=== PATIENT | female | born 1950 | race Caucasian/White ===

== ENCOUNTER 2021-11-17 14:45 | Outpatient (CLI) | payer MEDICARE, SELFPAY ==
[2021-11-17 10:58] LABS: Albumin* 4.3 g/dL (3.3-5.0); Chloride* 105 mmol/L (96-114)
[2021-11-17 10:59] LABS: Potassium* 4.6 mmol/L (3.6-5.1)
[2021-11-17 11:01] LABS: Aspartate Amino Transferase* 29 U/L (12-35); Bilirubin Total* 0.5 mg/dL (0.1-1.5); Blood Urea Nitrogen* 23 mg/dL (7-30); Carbon Dioxide* 30 mmol/L (20-32); Cholesterol* 208 mg/dL (90-199); Creatinine* 0.7 mg/dL (0.5-1.5); Estimated Glomerular Filt Rate 94 ml/min; Glucose* 104 mg/dL (60-115)
[2021-11-17 11:02] LABS: Alanine Aminotransferase* 22 U/L (4-35); Alkaline Phosphatase* 75 U/L (40-150); Calcium* 9.3 mg/dL (8.4-10.6); HDL Cholesterol* 76 mg/dL (>=50); LDL Cholesterol Calculated 101 mg/dL (<100); Triglycerides* 154 mg/dL (40-149)
[2021-11-17 11:15] LABS: Vitamin D 25 Hydroxy* 31 ng/mL (30-80)
[2021-11-17 11:25] LABS: Sodium* 140 mmol/L (135-149)
[2021-11-17 11:42] LABS: Vitamin B12* 420 pg/mL (243-894)
== END 2021-11-17 14:46 | disposition home or self-care (01) ==
PROVIDERS: PCP Family Medicine; Visit Provider Family Medicine
DX: E53.8 Deficiency of other specified B group vitamins (principal); E55.9 Vitamin D deficiency, unspecified; R53.83 Other fatigue; E78.5 Hyperlipidemia, unspecified
CPT/HCPCS: 80053; 80061; 82306; 82607

== ENCOUNTER 2021-12-01 14:23 | Emergency (ER) | payer MEDICARE, SELFPAY ==
[2021-12-01 14:55] VITALS: BP 124/79; PULSE 70; RESP 18; TEMP 36.3; O2SAT 96; BMI 27.0
--- NOTE | 2021-12-01 17:53 | ED.GENADULT ---
HPI - General Adult General Chief complaint: Abdominal Pain Stated complaint: Abdominal pain Time Seen by Provider: 12/01/21 17:43 Source: patient Mode of arrival: ambulatory Limitations: no limitations History of Present Illness HPI narrative: Patient is a 71-year-old female coming in today complaining of abdominal pain and diarrhea. Discomfort is located in the epigastric area just to the left, has been present for a week. The pain comes and goes. It is made worse with consumption of carbonated beverages. She also states she has been having 1 to multiple bowel movements per day that are loose or as she describes it airy. she denies feeling dizzy or lightheaded. She denies any recent travel, sick contacts or antibiotic use. She denies fevers, nausea or vomiting. She has normal appetite. Her discomfort when it is present does not radiate. It is not present right now. She denies any blood in her stool. No difficulty with urination. She denies any increased urgency frequency or dysuria. Patient states that she does take NSAIDs for joint pain. Related Data Home Medications Medication Instructions Recorded Confirmed magnesium oxide 400 mg PO QDAY 08/26/21 12/01/21 naproxen sodium 220 mg tablet 220 mg PO PRN 08/26/21 12/01/21 vitamin B complex 1 tab PO QDAY 11/20/21 12/01/21 Previous Rx's Medication Instructions Recorded cholecalciferol (vitamin D3) 50 50 mcg PO QDAY #100 caps 11/20/21 mcg (2,000 unit) capsule cyanocobalamin (vitamin B-12) 1,000 mcg PO QDAY #100 caps 11/20/21 1,000 mcg capsule fluticasone propionate 50 1 spray intranasal DAILY PRN 11/20/21 mcg/actuation nasal allergy symptoms #16 grams spray,suspension rosuvastatin 5 mg tablet 5 mg PO DAILY #90 tabs 11/20/21 Allergies Allergy/AdvReac Type Severity Reaction Status Date / Time tolmetin Allergy Intermediate Hives Verified 12/01/21 13:42 aspirin AdvReac Intermediate Abdominal Verified 12/01/21 13:42 Pain Review of Systems Status of ROS: Reports: 10 or more systems reviewed and unremarkable except as noted in History and below [facility] Medical History Dyslipidemia History of depression History of fibromyalgia History of rheumatoid arthritis History of supraventricular tachycardia Low vitamin B12 level Mild sleep apnea (07/2018) 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 Tinnitus Ventricular premature beats (2018) Vitamin D deficiency Surgical History H/O eye surgery (2019) History of arthroscopy of right knee (1977) History of arthroscopy of right knee (1983) History of right cataract extraction (06/2020) History of vaginal delivery Normal colonoscopy (2013) Family History Brother Coronary artery disease, Onset Age: 45 Cardiac arrhythmia Lupus erythematosus Mother Alzheimer's disease, Onset Age: 75 Stroke, Onset Age: 80 Father Basal cell carcinoma CHF (congestive heart failure), Onset Age: 86 Cardiac arrhythmia, Onset Age: 65 Maternal Grandmother Breast cancer, Onset Age: 40 Other Parkinson's disease Social History Narrative: health care directive on file- health care directive completed on 06/05/19, reviewed and sent for scanning to medical record on 11/21/20 exercises 3-4 times per week- 50N silver sneakers, gardening , 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 Alert and oriented. Answers questions appropriately. Mood and affect are appropriate. Thoughts are goal oriented and rational. No tangential or magical thinking noted. Patient speaks in full sentences without needing to catch her breath. HEENT: Normocephalic atraumatic. Pupils are equally round reactive to light. Extraocular muscles are intact. Conjunctivae are moist without any icterus noted. Moist mucous membranes. Posterior pharynx is normal. Neck is soft without any lymphadenopathy or thyromegaly. No masses are appreciated. Cardiovascular: Heart is regular rate and rhythm S1 and S2 are present without any murmurs. Lungs: Clear to auscultation bilaterally no wheezes rhonchi or rales are appreciated. Patient takes deep breaths without any discomfort. Abdomen: Soft and nontender nondistended with normal bowel sounds. No guarding or rebound. No masses or organomegaly appreciated. Extremities: Bilateral lower extremities are without edema. Skin: Well perfused without any obvious rashes. Const: Vital Signs, click to edit/add: Vital Signs - 24 hr 12/01/21 14:55 Temperature 97.4 F L Pulse Rate [Right Pulse Oximeter] 70 Respiratory Rate 18 Blood Pressure [Ri ght Upper Arm] 124/79 Pulse Oximetry 96 Oxygen Delivery Me thod Room Air Course Vital Signs Vital signs: Initial Vital Signs Temperature 97.4 F L 12/01/21 14:55 Temperature Source Temporal Artery Scan 12/01/21 14:55 Pulse Rate 70 12/01/21 14:55 Respiratory Rate 18 12/01/21 14:55 Blood Pressure 124/79 12/01/21 14:55 Blood Pressure Mean 94 12/01/21 14:55 Blood Pressure Position Sitting 12/01/21 14:55 Pulse Oximetry 96 12/01/21 14:55 Oxygen Delivery Method 12/01/21 14:55 Vital Signs Temperature 97.4 F L 12/01/21 14:55 Pulse Rate 70 12/01/21 14:55 Respiratory Rate 18 12/01/21 14:55 Blood Pressure 124/79 12/01/21 14:55 Pulse Oximetry 96 12/01/21 14:55 Oxygen Delivery Method 12/01/21 14:55 Temperature 97.4 F L 12/01/21 14:55 Pulse Rate 70 12/01/21 14:55 Respiratory Rate 18 12/01/21 14:55 Blood Pressure 124/79 12/01/21 14:55 Pulse Oximetry 96 12/01/21 14:55 Oxygen Delivery Method 12/01/21 14:55 Medical Decision Making MDM Narrative Medical decision making narrative: 71-year-old female with abdominal discomfort and loose stools. We discuss that her symptoms are likely caused by gastroenteritis and gastritis. Given the lack of other symptoms I did discuss with her that I do not feels necessary to do any imaging or lab work today. I do recommend Imodium and omeprazole. Discussed returning to the ER if she develops fever, vomiting, worsening pain. Discussed following up with primary care provider in a week or so if symptoms are not getting better. Patient was agreeable with everything we discussed and had no other questions. Medical Records Medical records reviewed: Yes I reviewed the patient's medical records Discharge Plan Discharge Clinical Impression: Gastritis, Gastroenteritis Patient Disposition: Home, Self-Care Condition: Stable Additional Instructions: Start daily omeprazole 20 mg. This can be purchased [id number]. This will help decrease the amount of acid in your stomach which is likely contributing to your abdominal discomfort. It may take a week for you to feel relief. Also start Imodium as directed to decrease frequency of loose stools. Return to the ER if you develop fever, vomiting or worsening pain. Follow-up with your primary care provider in 1 week if you are not improving. Prescriptions: No Action vitamin B complex Tablet 1 tab PO QDAY rosuvastatin 5 mg tablet 5 mg PO DAILY Qty: 90 4RF fluticasone propionate 50 mcg/actuation spray,suspension 1 spray intranasal DAILY PRN (Reason: allergy symptoms) Qty: 16 5RF cholecalciferol (vitamin D3) 50 mcg (2,000 unit) capsule 50 mcg PO QDAY Qty: 100 4RF cyanocobalamin (vitamin B-12) 1,000 mcg capsule 1,000 mcg PO QDAY Qty: 100 4RF naproxen sodium 220 mg tablet 220 mg PO PRN magnesium oxide 400 mg magnesium tablet 400 mg PO QDAY Follow Up/Referrals: Kathie Flores MD [Primary Care Provider] - Stand Alone Forms: [employer] Info Instructions
--- OUTSIDE RECORDS SUMMARY | 2021-12-01 18:02 | XMS_ITS | Encounter Summary ---
:1950 Author Organization [facility] Address [address] [place] [address] Care Team Providers Name Role Phone Elsewhere, Pcp Primary Care Provider Unavailable Reason for Visit Reason Comments Triage Encounter Details Date Type Department Care Team Description 03/12/2021 Clinical Communication Division of Marsha Padilla Rheumatology in S, M.D. [place], [place] [address] [facility] [address] [place] [id number] [phone] Social History Tobacco Use Types Packs/Day Years Used Date Smoking Tobacco: Never Assessed Alcohol Habits Answer Date Recorded How often do you have a drink containing alcohol? 2-3 times a week 08/28/2020 How many drinks containing alcohol do you have on a 1 or 2 08/28/2020 typical day when you are drinking? How often do you have six or more drinks on one Never 08/28/2020 occasion? Comment: Not asked Social Isolation Answer Date Recorded In a typical week, how many times do you More than three pedro es a week 08/28/2020 talk on the phone with family, friends, or neighbors? How often do you get together with friends More than three t imes a week 08/28/2020 or relatives? How often do you attend mormon or Never 2020 baptist services? Do you belong to any clubs or Yes 08/28/2020 organizations such as mormon groups, unions, fraternal or athletic groups, or school groups? How often do you attend meetings of the More than 4 times pe r year 08/28/2020 clubs or organizations you belong to? Are you now , , , 08/28/2020 , never or living with a partner? Physical Activity Answer Date Recorded On average, how many days per week do you engage in moderate to 3 days 08/28/2020 strenuous exercise (like walking fast, running, jogging, dancing, swimming, biking, or other activities that cause a light or heavy sweat)? On average, how many minutes do you engage in exercise at th is 50 min 08/28/2020 level? Stress Answer Date Recorded Do you feel stress - tense, restless, nervous, or Only a lit tle 08/28/2020 anxious, or unable to sleep at night because your mind is troubled all the time - these days? Financial Resource Strain Answer Date Recorded How hard is it for you to pay for the very basics like Not h adamaris at all 08/28/2020 food, housing, medical care, and heating? Food Insecurity Answer Date Recorded Within the past 12 months, you worried that your food would Never true 08/28/2020 run out before you got money to buy more. Within the past 12 months, the food you bought just didn't N ever true 08/28/2020 last and you didn't have money to get more. Transportation Needs Answer Date Recorded In the past 12 months, has lack of transportation kept you f rom No 08/28/2020 medical appointments or from getting medications? In the past 12 months, has lack of transportation kept you f rom No 08/28/2020 meetings, work, or getting things needed for daily living? Housing Stability Answer Date Recorded In the last 12 months, was there a time when you were not ab le No 08/28/2020 to pay the mortgage or rent on time? In the last 12 months, how many places have you lived? 1 08/28/2020 In the last 12 months, was there a time when you did not hav e a No 08/28/[address] sleep or slept in a fci (including now)? Education Answer Date Recorded What is the highest level of school Master's degree (e.g., M Joni, MS, 08/28/2020 you have completed or the highest Sung, MEd, WRAPPER STEMMER OPERATOR, MARY) degree you have received? Sex Assigned at Date Recorded Not on file documented as of this encounter Miscellaneous Notes Telephone Encounter - Marsha Padilla M.D. - 03/12/2021 11:22 AM SUPERVISING LAW ENFORCEMENT ANALYST Rheumatology Appointment Request Form Triage Appointment request: DENIED Explanation: Indication (+SURESH) not appropriate for Rheumatology: suggest referral to another Department or Division: [facility] Thank you. Marsha Padilla M.D. RVISING LAW ENFORCEMENT ANALYST Telephone Encounter - Giuliano Luz - 03/12/2021 11:02 AM CST New Patient Referral for: Arthritis Personal History [Z87.39] OSM: Chart and CE Scheduling Priority: Send Response to: RST U SCHEDULING Rheumatology ARF Responses Name: Jeanette Rios [facility] Number: [id number] Birthdate: 1950 Email: [email or web address] Rheumatology Model of Care I have read the Medical Emergency directions as noted above: Yes I have read the Rheumatology Model of Care as noted above and agree to the process outlined: Yes Demographics Legal first name: Jeanette Hi initial: Alvina Last name: Gabriel date (mm/dd/yyyy): 1950 Who is filling out this form: Patient Have you been diagnosed with a rheumatic disease: Yes If yes, please list: Rheumatoid Arthritis What are your goals for your visit to [facility]: To work with a specialist in rheumatology to determine which autoimmune disease I may have and develop and appropriate treatment plan so I can return to doing the activities I enjoy. Who is referring you to [facility] (provide name and address): Dr. Althea Flores [facility] and [address] [address] Is this a Vat Tender: Yes Is this your local provider that you would like us to communicate with: Yes What are your goals for your visit to [facility]: To work with a specialist in rheumatology to determine which autoimmune disease I may have and develop and appropriate treatment plan so I can return to doing the activities I enjoy. Primary Symptom/Concern Primary Symptom/Concern: Describe your main medical symptoms and concerns: swollen knees with pain and overall muscle and body aches that are causing sleep disturbance and exteme fatigue. Primary Symptom/Concern: Has this symptom been present for less than 6 months or more than 6 months:More than 6 months Primary Symptom/Concern: Have you previously been evaluated for this symptom: No Are there additional symptoms/concerns: Yes Secondary Symptom/Concern Secondary Symptom/Concern: Describe your main medical symptoms and concerns: Fatigue is increasing the frequency of my heart palpitations Secondary Symptom/Concern: Has this symptom been present for less than 6 months or more than 6 months: More than 6 months Secondary Symptom/Concern: Have you previously been evaluated for this symptom: Yes Secondary Symptom/Concern: What was the outcome of this evaluation for this symptom: I went through a cardiac work-up in the November-December 2017. Additional Symptoms/Concerns Are you currently taking any form of oral glucocorticoid (e.g., prednisone): No Are you currently taking any form of opioid or narcotic pain medication: No Please list any current medications that you take for rheumatology-related conditions: Naproxen Sodium 220mg tabs q 12 hours Please list any medications you have previously taken for rheumatology-related conditions: Prednisone Injections Oral prednisone Do you or your local provider feel you should see any specialists while at [facility]: Yes Please list any specialists that you or your local provider feel you should see while you are at [facility] and explain: Rhematologist How would you rate your overall health: Good Have you had a biopsy of tissue or organ related to your rheumatology problems: No Do you have a history of iodine contrast reaction: No Do you have a history of Gadolinium contrast reaction: No Are you on dialysis: No Have you had a kidney transplant: No Have you had low urine output or no urine output in the past 48 hours: No Do you have any implanted medical devices or pumps: No Are you diabetic: No Are you currently taking any dietary or herbal supplements: Yes Dietary supplements may contain ingredients that can affect how your body functions, just as nonprescription and prescription medications do. Would you like a physician in Integrative Medicine and Health to review your supplements: Yes Please list the frequency and dosage of any dietary and herbal supplements: Multivitamin Daily B-complex Daily Vit D3 5000 IU Daily Appointment Information Please list below any specific dates we should not use for scheduling within the next 12 weeks: I amNOT available for certain dates List dates NOT available: March 24April 17April 24 What is the best phone number to reach you at: [phone] RVISING LAW ENFORCEMENT ANALYST documented in this encounter Plan of Treatment Not on filedocumented as of this encounter Visit Diagnoses Not on filedocumented in this encounter Care Teams Cartridge Assembling Machine Adjuster Relationship Specialty Start Date End Date Elsewhere, Pcp PCP - General Family Medicine 08/25/20 documented as of this encounter
--- OUTSIDE RECORDS SUMMARY | 2021-12-01 18:02 | XMS_ITS | Encounter Summary ---
:1950 Author Organization [facility] Address [address] [place] [address] Care Team Providers Name Role Phone Elsewhere, Pcp Primary Care Provider Unavailable Reason for Referral Outpatient (Routine) - Closed Specialty Diagnoses / Procedures Referred By Contact Refer red To Contact Vascular Medicine Diagnoses Stenosis Carotid Artery Bilateral Hugh Nguyen [place] [facility] M.D. [address] [place] [address] Referral ID Status Reason Start Date Expiration Date Visits Requ ested Visits Authorized [id number] Closed 08/28/2020 08/28/2021 1 1 Outpatient (Routine) - Closed Specialty Diagnoses / Procedures Referred By Contact Refer red To Contact Diagnoses Stenosis Carotid Artery Bilateral Hugh Nguyen M.D. [place] [facility] Procedures US Carotid Bilateral [address] [place] [address] Referral ID Status Reason Start Date Expiration Date Visits Requ ested Visits Authorized [id number] Closed 08/28/2020 08/28/2021 1 1 Reason for Visit Outpatient (Routine) - Closed Specialty Diagnoses / Procedures Referred By Contact Refer red To Contact Vascular Medicine Diagnoses Stenosis Carotid Artery Bilateral Imtiaz Lai [place] [facility] M.D. [address] [place] [address] Referral ID Status Reason Start Date Expiration Date Visits Requ ested Visits Authorized [id number] Closed 08/22/2020 08/22/2021 1 1 Encounter Details Date Type Department Care Team Description 08/28/2020 Comprehensive Visit Department of Maritza Nguyen s Carotid Artery Bilateral (Primary Dx); Vascular Medicine in [place] Mar[facility] Hyperlipidemia; [place], [place] 200 [facility] Smoking Tobacco Use Personal History; [address] [place], [place] [phone] Social History Tobacco Use Types Packs/Day Years [...] or relatives? How often do you attend scientologist or Never 2020 temple services? Do you belong to any clubs or Yes 08/28/2020 organizations such as scientologist groups, unions, fraternal or athletic groups, or [...] place to sleep or slept in a half-way (including now)? Education Answer Date Recorded What is the highest level of school Master's degree (e.g., M Joni, MS, 08/28/2020 you have completed or the highest Sung, MEd, PLASTER WHITTLER, MARY) degree you have received? Sex Assigned at Date Recorded Not on file documented as of this encounter Last Filed Vital Signs Vital Sign Reading Time Taken Comments Blood Pressure 128/82 08/28/2020 12:48 PM CDT Pulse 65 08/28/2020 12:48 PM CDT Temperature - - Respiratory Rate - - Oxygen Saturation - - Inhaled Oxygen Concentration - - Weight 93.2 kg (205 lb 7.5 oz) 08/28/2020 12:47 PM CDT Height 181.6 cm (5' 11.5) 08/28/2020 12:47 PM CDT Body Mass Index 28.26 08/28/2020 12:47 PM CDT documented in this encounter Consult Notes Hugh Nguyen M.D. - 08/28/2020 1:00 PM CDT REFERRAL SOURCE Imtiaz Carrera M.D. [address] [place] [id number] SUBJECTIVE CHIEF COMPLAINT / REASON FOR VISIT HISTORY OF PRESENT ILLNESS Ms. Rios is a 70 y.o. female that I am seeing today for an opinion and recommendations on carotid arterial stenosis. The patient has been referred by Imtiaz Carrera M.D. 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 She has her Masters Degree in nursing. Mrs. Rios had a recent evaluation for hearing her heartbeat in her ears and ringing in her ears whenshe was lying in bed at night and everything was quiet. When I questioned her about the tinnitus, she does have a history of loud noise exposure in the past. She had a carotid arterial ultrasound exam and an MRI/angio without contrast, both on August 18 of this year, and the reports are as noted below. She was noted to have carotid artery plaque and I am asked to comment on this. She does not have a history of TIA or stroke. She is not diabetic and does not have a history of hypertension. Past Medical History: Her past medical history includes hyperlipidemia, environmental allergies, a left knee arthroscopic meniscal surgery, right eye cataract surgery, and another right eye surgery forfloaters involving her retina. Social History: She quit smoking in 1980. She drinks alcohol socially but not daily. Family History: Mother age 82 from a stroke, father age 89 with Parkinson's and from pneumonia, sister age 66, brother age 62 with lupus, and a brother age 59. To the patient's knowledge, these family members did not have a history of carotid artery disease. The following portions of the patient's history were reviewed and updated as appropriate: allergies,current medications, family history, medical history, social history, surgical history, psychiatric history, substance abuse history, problem list, labs, diagnostics tests. I reviewed the pertinent clinical notes in the electronic health record. REVIEW OF SYSTEMS Constitutional: Positive for fatigue. Eyes: Positive for visual problems. ENT: Positive for difficulty hearing. Cardiovascular: Positive for rapid or fluttering heart beat. Neurological: Positive for light-headedness. Psychiatric/Behavioral: Positive for feeling down, depressed, or hopeless over past two weeks. The following systems were negative: Skin, Respiratory, GI, , Hematologic, Musculoskeletal A complete review of systems was performed with pertinent information listed in the HPI, all others negative. OBJECTIVE VITALS BP 128/82 (BP Location: Right arm, Patient Position: Sitting) Pulse 65 Ht 181.6 cm Wt 93.2 kg BMI 28.26 kg/m?? PHYSICAL EXAMINATION Body mass index is 28.26 kg/m??. Physical Exam Neurological: Awake, alert, and appropriately conversant. Psychiatry: In no distress and she did not appear to be depressed. Vessels: Radial pulses were 4+ bilaterally, ulnars 3+ on the right and 2+ on the left, brachials 4+ bilaterally, carotids 4+ bilaterally without bruits, femorals 3+ bilaterally, popliteals 2+ bilaterally, dorsalis pedis 3+ on the right and 4+ on the left, and posterior tibials 4+ bilaterally. Eyes: The pupils were equal, round, and reactive to light and accommodation. Extraocular movements were intact. Optic discs were not visualized. ENT: Tympanic membranes were obscured bilaterally. Oropharynx was not examined as the patient was wearing a mask due to the COVID-19 pandemic. Respiratory: Lungs were clear to auscultation. Cardiovascular: Cardiac exam revealed a regular rate with a normal S1 and S2. Abdomen: Active bowel sounds. No bruits. : Not examined. Musculoskeletal: No spinous process tenderness on back examination. She did not have limb atrophy. DIAGNOSTIC REVIEW All relevant labs and diagnostic studies below were reviewed. Within Document Viewer there is a report for a carotid artery ultrasound exam dated August 18 of this year and those images are in QREADS. The report indicated mild atherosclerotic plaque evident without a hemodynamically significant stenosis involving the common carotid, internal carotid, or external carotid arteries on either side. The final impression was a less than 50 percent bilateral internal carotid arterial stenosis. The report also indicated a decreased peak systolic velocity bilaterally, particularly on the right, suggesting systemic hypotension. Within Document Viewer there is an MRI/angio without contrast report dated August 18 of this year and those images are in QREADS. The report indicates that the visualized internal carotid, middle cerebral, anterior cerebral, vertebral, basilar, and posterior cerebral arteries are all widely patent. There are no aneurysms or AV malformations noted. Overall the study was thought to be an unremarkable MRA of the head without infarction. ASSESSMENT / PLAN ASSESSMENT #1 Stenosis Carotid Artery Bilateral Mrs. Rios had recent symptoms consisting of hearing her heartbeat in her ears and bilateral tinnitus, both of which I do not think were related to a non- hemodynamically significant carotid arterial stenosis on either side. In my discussion with her, she is concerned about the report on the carotid artery ultrasound indicating the decreased peak systolic velocity bilaterally suggesting systemic hypotension. She notes that her blood pressures in the afternoon may be in the 118 systolic range, and thatcertainly does not sound like systemic hypotension. Given her concerns, and the vagueness of that wording in her carotid artery ultrasound report, I think it would be reasonable to repeat the carotid artery ultrasound exam here, and she would like to do that. There is nothing on her carotid artery ultrasound report, nor in her MRI/angio report, that has me concerned about her cerebrovascular circulation, and she was reassured. We talked about when we would consider repair of a carotid arterial stenosis, and that is in the 70 to 99 percent stenosis range. #2 Hyperlipidemia This is a risk factor for atherosclerosis and carotid arterial stenosis and is currently on treatment. #3 Smoking Tobacco Use Personal History This is also a risk factor for atherosclerosis and carotid arterial stenosis and the patient stoppedsmoking decades ago. #4 Tinnitus Bilateral The discussion is as above. PLAN 1. Carotid arterial ultrasound examination. 2. I will see her in return after the above. Total time spent with patient: 60 minutes. Time spent in counseling and coordination of care: 35 minutes. Hugh Nguyen M.D. documented in this encounter Plan of Treatment Scheduled Referrals Name Type Priority Associated Diagnoses Order S [facility] Vascular Medicine Outpatient Referral Routine Stenosis Carotid Expected: office visit Artery Bilateral 08/28/2020 (clinic) (Approximate), Expires: 08/29/2023 documented as of this encounter Results US Carotid Bilateral (10/06/2020 2:18 PM CDT) Anatomical Region Laterality Modality Head and Neck, Ultrasound RST LOS, Ultrasound ARZ LOS, Bilat [place] Ultrasound Neuroradiology FLA LOS Specimen (Source) Anatomical Collection Method Collection Time Re ceived Time Location / / Volume Laterality 10/06/2020 2:27 PM CDT Impressions 10/06/2020 2:29 PM CDT Negative carotid ultrasound. Both vertebral arteries are patent with antegrade flow. Narrative 10/06/2020 2:29 PM CDT EXAM: US CAROTID BILATERAL Exam performed with color and spectral D oppler analysis. COMPARISON: ??Outside ultrasound dated 0 08/18/2020 FINDINGS: VELOCITIES (cm/sec) Right CCA *psv: ??46 cm/s Right ICA psv: 57 cm/s Right ICA edv: 25 cm/s Right ECA psv: 36 cm/s Right ICA/CCA: 1.2 Left CCA *psv: 50 cm/s Left ICA psv: 57 cm/s Left ICA edv: ??24 cm/s Left ECA psv: ??37 cm/s Left ICA/CCA: 1.2 ?? *mid/distal (non-diseased) Measurement of a carotid stenosis, if pr esent, is based on velocity parameters that compare the residual internal carot id luminal diameter with that of the normal distal ICA in accordance with [place] Symptomatic Carotid Endarterectomy Trial (NASCET). Procedure Note Joshua Rutherford M.D. - 10/06/2020Formatti ng of this note might be different from the original. EXAM: US CAROTID BILATERAL Exam performed with color and spectral D oppler analysis. COMPARISON: Outside ultrasound dated FINDINGS: VELOCITIES (cm/sec) Right CCA *psv: 46 cm/s Right ICA psv: 57 cm/s Right ICA edv: 25 cm/s Right ECA psv: 36 cm/s Right ICA/CCA: 1.2 Left CCA *psv: 50 cm/s Left ICA psv: 57 cm/s Left ICA edv: 24 cm/s Left ECA psv: 37 cm/s Left ICA/CCA: 1.2 *mid/distal (non-diseased) Measurement of a carotid stenosis, if pr esent, is based on velocity parameters that compare the residual internal carot id luminal diameter with that of the normal distal ICA in accordance with [place] Symptomatic Carotid Endarterectomy Trial (NASCET). IMPRESSION: Negative carotid ultrasound. Both verteb ral arteries are patent with antegrade flow. Hugh Nguyen M.D. [facility] US PROCEDURES documented in this encounter Visit Diagnoses Diagnosis Stenosis Carotid Artery Bilateral - Prim garrett Hyperlipidemia Smoking Tobacco Use Personal History Tinnitus Bilateral Stenosis Carotid Artery Bilateral documented in this encounter Care Teams Rn Mds Relationship Specialty Start Date End Date Elsewhere, Pcp PCP - General Family Medicine 08/25/20 documented as of this encounter
--- OUTSIDE RECORDS SUMMARY | 2021-12-01 18:02 | XMS_ITS | Encounter Summary ---
:1950 Author Organization [facility] Address [address] [place] [address] Care Team Providers Name Role Phone Elsewhere, Pcp Primary Care Provider Unavailable Reason for Referral Outpatient (Routine) - Closed Specialty Diagnoses / Procedures Referred By Contact Refer red To Contact Diagnoses Stenosis Carotid Artery Bilateral Hugh Nguyen M.D. [facility] Procedures US Carotid Bilateral [address] [place] [phone] Referral ID Status Reason Start Date Expiration Date Visits Requ ested Visits Authorized [id number] Closed 08/28/2020 08/28/2021 1 1 Reason for Visit Outpatient (Routine) - Closed Specialty Diagnoses / Procedures Referred By Contact Refer red To Contact Diagnoses Stenosis Carotid Artery Bilateral Hugh Nguyen M.D. [facility] Procedures US Carotid Bilateral [address] [place] [address] Referral ID Status Reason Start Date Expiration Date Visits Requ ested Visits Authorized [id number] Closed 08/28/2020 08/28/2021 1 1 Encounter Details Date Type Department Care Team Description 10/06/2020 Hospital Encounter Department of Patrick, Chap[place]rita Carotid Radiology, Angelica Malcolm M.D. Artery Bilateral Building, in [address] [place], [place] [address] [facility] [address] [place], [place] [phone] (Work) [phone] Social History Tobacco Use Types Packs/Day Years [...] or relatives? How often do you attend hindu or Never 2020 scientology services? Do you belong to any clubs or Yes 08/28/2020 organizations such as hindu groups, unions, fraternal or athletic groups, or [...] place to sleep or slept in a residential (including now)? Education Answer Date Recorded What is the highest level of school Master's degree (e.g., M Joni, MS, 08/28/2020 you have completed or the highest Sung, MEd, CATERING AND EVENTS MANAGER, MARY) degree you have received? Sex Assigned at Date Recorded Not on file documented as of this encounter Medications at Time of Discharge Medication Sig Dispensed Refills Start Date End Date atorvastatin (LIPITOR) 10 mg Take 10 mg by mouth 0 07/21/2020 tablet at bedtime. B complex-vitamins (BALANCE Take 1 tablet by 0 B-50) tablet mouth daily. cetirizine (ZyrTEC) 5 mg Take 5 mg by mouth 0 tablet as needed for allergies. cholecalciferol (VITAMIN D3) Daily 0 020 50 mcg (2,000 Unit) tablet ergocalciferol (DRISDOL) Take 2,000 Units by 0 50,000 Unit capsule mouth. fluticasone propionate Daily 0 02/18/2014 (FLONASE) 50 mcg/actuation nasal spray multivitamin renal failure Take 1 tablet by 0 (DIALYVITE) 100-1 mg tablet mouth daily with dinner. naproxen sodium Twice A Day as 0 (ALEVE/ANAPROX) 220 mg needed tablet omega 0-kdw-aqa-fish oil Take by mouth. 0 1,000 mg (120 mg-180 mg) capsule documented as of this encounter Plan of Treatment Not on filedocumented as of this encounter Procedures Procedure Name Priority Date/Time Associated Comments Diagnosis US CAROTID RAD - Routine 10/06/2020 2:18 Stenosis Carotid Results for this BILATERAL (most inpatients PM CDT Artery Bilateral procedu re are in and all the results outpatients) section. documented in this encounter Results US Carotid Bilateral (10/06/2020 2:18 PM CDT) Anatomical Region Laterality Modality Head and Neck, Ultrasound RST LOS, Ultrasound ARZ LOS, Bilat eral Ultrasound Neuroradiology FLA LOS Specimen (Source) Anatomical [...] the normal distal ICA in accordance with [facility] [place] Symptomatic Carotid Endarterectomy Trial (NASCET). Procedure Note [...] the normal distal ICA in accordance with [place] Symptomatic Carotid Endarterectomy Trial (NASCET). IMPRESSION: Negative carotid ultrasound. Both verteb ral arteries are patent with antegrade flow. Hugh GORODN US PROCEDURES documented in this encounter Visit Diagnoses Diagnosis Stenosis Carotid Artery Bilateral documented in this encounter Care Teams Splitter Machine Relationship Specialty Start Date End Date Elsewhere, Pcp PCP - General Family Medicine 08/25/20 documented as of this encounter
--- OUTSIDE RECORDS SUMMARY | 2021-12-01 18:02 | XMS_ITS | Encounter Summary ---
:1950 Author Organization [facility] Address [address] [place] [address] Care Team Providers Name Role Phone Elsewhere, Pcp Primary Care Provider Unavailable Reason for Visit Outpatient (Routine) - Closed Specialty Diagnoses / Procedures Referred By Contact Refer red To Contact Vascular Medicine Diagnoses Stenosis Carotid Artery Bilateral Hugh Nguyen [place] [facility] Gonzalez [address] [place] [address] Referral ID Status Reason Start Date Expiration Date Visits Requ ested Visits Authorized [id number] Closed 08/28/2020 08/28/2021 1 1 Encounter Details Date Type Department Care Team Description 10/06/2020 Office Visit Department of Vascular Melissa Nguyeno sis Carotid Artery Medicine in [facility] Alec Maradiaga Bilateral [place] 200 [facility] [address] [place] [phone] Social History Tobacco Use Types Packs/Day Years [...] do you attend mormon or Never 2020 christian services? Do you belong to any clubs [...] place to sleep or slept in a longterm (including now)? Education Answer Date Recorded What is the highest level of school Master's degree (e.g., Alec Quinones MS, 08/28/2020 you have completed or the highest Sung, MEd, DEPUTY DIRECTOR OF NURSING, MARY) degree you have received? Sex Assigned at Date Recorded Not on file documented as of this encounter Progress Notes Hugh Nguyen M.D. - 10/06/2020 4:15 PM CDT SUBJECTIVE Ms. Rios is a 70 y.o. female who is returning today for review of her carotid artery ultrasound exam. OBJECTIVE VITALS There were no vitals taken for this visit. PHYSICAL EXAMINATION There is no height or weight on file to calculate BMI. DIAGNOSTIC REVIEW Her carotid arterial ultrasound exam from earlier today does not show significant carotid artery stenosis on either side and both vertebral arteries are patent with antegrade flow. ASSESSMENT / PLAN ASSESSMENT #1 Stenosis Carotid Artery Bilateral Although the patient does have a carotid arterial ultrasound report locally from July noting a less than 50 percent bilateral internal carotid arterial stenosis, our study does not show any significantstenosis on either side, and she was reassured. I do not see a need for any further carotid arterialstudies at this point. PLAN 1. Recommendations are as above. Total time spent with patient: 15 minutes. Time spent in counseling and coordination of care: 10 minutes. Hugh Nguyen M.D. documented in this encounter Plan of Treatment Not on filedocumented as of this encounter Visit Diagnoses Diagnosis Stenosis Carotid Artery Bilateral documented in this encounter Care Teams Contract Sheltered Workshop Supervisor Relationship Specialty Start Date End Date Elsewhere, Pcp PCP - General Family Medicine 08/25/20 documented as of this encounter
--- OUTSIDE RECORDS SUMMARY | 2021-12-01 18:02 | XMS_ITS | Clinical Summary ---
:1950 Author Organization [facility] [place] [address] Care Team Providers Name Role Phone Kathie Flores MD Primary Care Provider [phone] Allergies Active Allergy Reactions Severity Noted Date Comments Aspirin GI Upset 01/16/2020 abd pain Tolmetin Rash 06/14/2006 tolectin Medications Medication Sig Dispensed Refills Start Date End Date Status fluticasone (50 mcg per Inhale 1 Wheeler 1 Bottle 3 02/18/2014 Active actuation) nasal into both solution nostrils once (FLONASE)Indications: daily. Environmental allergies ergocalciferol (VITAMIN Take 1 capsule 12 capsule 3 02/19/2015 Active D) 50,000 unit by mouth once capsuleIndications: weekly. Vitamin D deficiency atorvastatin (LIPITOR) Take 1 tablet by 0 12/02/2017 Active 10 mg tablet mouth once daily. naproxen (NAPROSYN) 500 TAKE ONE TABLET 0 01/20/2018 Active mg tablet BY MOUTH TWICE A DAY WITH FOOD FOR 10 DAYS cyanocobalamin (VITAMIN Take 1,000 mcg 0 Active B-12) 1,000 mcg tablet by mouth once daily. Active Problems Problem Noted Date Burt's neuroma of right foot 10/31/2014 Unspecified vitamin D deficiency 02/05/2011 Tachycardia, unspecified 12/29/2009 Overview: Intermittant; trigger by caffeine Insomnia, unspecified 12/29/2009 Arthritis, rheumatic, acute or subacute 05/27/2009 Overview: Diagnosis in the but had a Negati ve RA. Symptoms controlled with hormones-- control pills Fibromyalgia 05/27/2009 Hyperlipemia 05/27/2009 Routine health maintenance 05/27/2009 Overview: Physical,pap,breast exam,cholesterol 240 , ldl 138,hdl, 69 Colon: 9.2003- normal BMD: 10.2006 normal density Resolved Problems Problem Noted Date Resolved Date Coronary atherosclerosis of unspecified type of vessel, 08/2812/29/2009 sitka or graft CVD (cardiovascular disease) 09/15/2009 12/29/2009 Adjustment disorder with mixed anxiety and depressed mood 02/05/2011 Adjustment disorder with depressed mood 02/05/2011 Encounters Date Type Specialty Care Team Description 10/14/2021 Telephone Brionna Hyde PsyD, Late Cancel Appointment LP 09/25/2021 Office Visit Brionna Hyde PsyD, Individual Therapy 09/25/2021 Travel from Last 3 Months Immunizations Name Administration Dates Next Due Hepatitis A (Adult) 12/01/2006, 05/12/2005 Influenza A (H1N1), Inactivated (Age 1202/27/2009 >=3 Years) Influenza Virus, Unspecified 01/20/2016 Influenza, IIV3 (Age >=3 years) 02/16/2013, 02/16/2012, 10/30, 12/29/2009 Influenza, IIV4 12/30/2014 Td (Age >=7 Years) 04/09/2003 Tdap 02/16/2012 Zoster (Zostavax-ZVL, live) 03/14/2015 Family History Medical History Relation Name Comments Other Brother 1 Andrew chest pain; no A SCVD Cancer-colon Brother 2 Yuri polyps Asthma Daughter Pj Good Health Daughter Pj Heart Disease Father arrythmia Hypertension Father Other Father Parkinson's, sta ble brain tumor Stroke Maternal Grandfather Cancer-breast Maternal Grandmother Other Maternal Grandmother dementia Heart Disease Mother afib Hyperlipidemia Mother Other Mother alzheimer's Thyroid Disease Mother Stroke Paternal Grandfather Heart Disease Paternal Grandmother Other Sister fibromyalgia Good Health Son Bear Relation Name Status Comments Brother 1 Andrew Alive Brother 2 Yuri Alive Daughter Pj Alive Father Alive Maternal Grandfather (Age 62) stroke Maternal Grandmother (Age 70's) dementi a Mother complication of stroke Paternal Grandfather (Age 78) strokes Paternal Grandmother (Age 93) CHF Sister Alive Son Bear Alive Social History Tobacco Use Types Packs/Day Years Used Date Former Smoker Quit: 02/28/18 83 Smokeless Tobacco: Never Used Tobacco Cessation: Counseling Given: Yes Alcohol Use Standard Drinks/Week Comments Yes 0 (1 standard drink = 0.6 oz pure alcoho l) 0-1 a week Alcohol Habits Answer Date Recorded How often do you have a drink containing alcohol? Not asked How many drinks containing alcohol do you have on a typical Not asked day when you are drinking? How often do you have six or more drinks on one occasion? No t asked Comment: 0-1 a week 12/29/2009 Sex Assigned at Date Recorded Not on file Obstetrics History Para Term AB IAB SAB Ectopic Multiple Living Live Births 2 2 2 2 Date Outcome GA Total Labor/2nd/3rd Weight Sex Delivery Anes PTL Marga A 1 A5 Name Clin Labor Term Term Comments Bedrest for the second Last Filed Vital Signs Vital Sign Reading Time Taken Comments Blood Pressure 136/80 01/17/2020 10:25 AM BAKESHOP CLEANER Pulse 58 01/17/2020 10:25 AM BAKESHOP CLEANER Temperature 36.3 ??C (97.4 ??F) 01/17/2020 8:33 AM BAKESHOP CLEANER Respiratory Rate 18 01/17/2020 10:25 AM BAKESHOP CLEANER Oxygen Saturation 99% 01/17/2020 10:25 AM BAKESHOP CLEANER Inhaled Oxygen Concentration - - Weight 91.6 kg (202 lb) 01/16/2020 12:00 PM BAKESHOP CLEANER Height 182.9 cm (6') 01/16/2020 12:00 PM BAKESHOP CLEANER Body Mass Index 27.4 01/16/2020 12:00 PM BAKESHOP CLEANER Plan of Treatment Upcoming Encounters Date Type Specialty Care Team Description 01/08/2022 [place] [address] [place], [place] [address] (Wo rk) 03/03/2022 [place] [address] [place], [place] [address] (Wo rk) Health Maintenance Due Date Last Done Comments Hepatitis C screening for age 0608[birth year]23[birth year]1970 18-79 Zoster (shingles) series for age 0305/09/2015 03/14/2015 50+ (2 of 3) Mammogram for age 45-75 02/28/2016 02/27/2015, 03/12/2014, 02/22/2013, Additional history exists DEXA/DXA scan for age 65+ 2017 02/27/2015, 10/10/2009 Medicare Wellness for age 65+ 2017 Pneumococcal series for age 65+ (1 2017 - PCV) BMI (ht and wt on same day) for 01/25/2019 01/25/2018, 03/2015, age 18+ 08/14/2015, Additional history exists Lipids for age 45-75 02/20/2020 02/19/2015, 02/18/2014, 02/16/2013, Additional history exists COVID-19 vaccine series (4 - 04/27/2021 12/25/2020, 021, Booster for Moderna series) 04/18/2020 Influenza for age 65+ 10/29/2021 01/20/2016, 12/30/2014, 02/16/2013, Additional history exists Depression screening for age 12+ 11/26/2021 11/26/2020, 06/2018, 11/23/2017, Additional history exists Tetanus booster 02/15/2022 02/16/2012, 04/09/2003 Colonoscopy through age 75 12/13/2023 12/12/2013, 4 Tdap Completed 02/16/2012 Results Not on filefrom Last 3 Months Insurance Payer Benefit Plan / Subscriber ID Effective Dates Phone Addre ss Type Group MEDICARE PART A MEDICARE PART A [id number] 2017-Present ATTN: CLAIMS - HB USE ONLY HB ONLY [address] [place] [address] [facility] MEDICARE [id number] 2019-Presen [address] [place] [address] Advance Directives Latest Code Status on File Code Status Date Activated Date Inactivated Comments Full Code 01/17/2020 8:14 AM 01/17/2020 1:18 PM Code Status Discussion: Not Discussed Care Teams Warp Knit Operator Relationship Specialty Start Date End Date Kathie Flores MD PCP - General Family Practice 12/16/171999 [place] [address]
--- OUTSIDE RECORDS SUMMARY | 2021-12-01 18:02 | XMS_ITS | Encounter Summary ---
:1950 Author Organization [facility] Address [address] [place] [address] Care Team Providers Name Role Phone Elsewhere, Pcp Primary Care Provider Unavailable Encounter Details Date Type Department Care Team Description 03/10/2021 [facility] Rachel Flores Personal AND ZHANE Vázquez M.D. History (Primary Dx) [address] [facility] [address] [place] [address] [place], [place] [phone] Social History Tobacco Use Types Packs/Day Years [...] or relatives? How often do you attend yazdanism or Never 2020 anglican services? Do you belong to any clubs or Yes 08/28/2020 organizations such as yazdanism groups, unions, fraternal or athletic groups, or [...] place to sleep or slept in a group home (including now)? Education Answer Date Recorded What is the highest level of school Master's degree (e.g., M A, MS, 08/28/2020 you have completed or the highest Sung, MEd, AGRICULTURAL AND FORESTRY SUPERVISOR, MARY) degree you have received? Sex Assigned at Date Recorded Not on file documented as of this encounter Plan of Treatment Not on filedocumented as of this encounter Visit Diagnoses Diagnosis Arthritis Personal History - Primary documented in this encounter Care Teams Foundry Helper Relationship Specialty Start Date End Date Elsewhere, Pcp PCP - General Family Medicine 08/25/20 documented as of this encounter
--- OUTSIDE RECORDS SUMMARY | 2021-12-01 18:02 | XMS_ITS | Encounter Summary ---
:1950 Author Organization [facility] Address [address] [place] [address] Care Team Providers Name Role Phone Elsewhere, Pcp Primary Care Provider Unavailable Reason for Referral Appointment Request (Routine) - Closed Specialty Diagnoses / Procedures Referred By Contact Refer red To Contact Kenisha Michael M.D. [address] [place] [address] Referral ID Status Reason Start Date Expiration Date Visits Requ ested Visits Authorized [id number] Closed 12/11/2020 12/11/2021 1 1 Encounter Details Date Type Department Care Team Description 11/25/2020 Orders Only RST PCP [facility] MNT Kenisha Michael M.D. [address] [place], [place] [phone] (Wo rk) Social History Tobacco Use Types Packs/Day Years [...] or relatives? How often do you attend uatsdin or Never 2020 confucianist services? Do you belong to any clubs or Yes 08/28/2020 organizations such as uatsdin groups, unions, fraternal or athletic groups, or [...] have completed or the highest Sung, MEd, COMMERCIAL ENERGY AUDITOR, MARY) degree you have received? Sex Assigned at Date Recorded Not on file documented as of this encounter Plan of Treatment Scheduled Referrals Name Type Priority Associated Order Schedule Diagnoses Covid immunization Outpatient Referral Routine Ex pected: office visit Booster 021 (Approximate), Expires: 11/25/2021 documented as of this encounter Visit Diagnoses Not on filedocumented in this encounter Care Teams Fleece Tier Relationship Specialty Start Date End Date Elsewhere, Pcp PCP - General Family Medicine 08/25/20 documented as of this encounter
--- OUTSIDE RECORDS SUMMARY | 2021-12-01 18:02 | XMS_ITS | Clinical Summary ---
:1950 Author Organization [facility] Address [address] [place] [address] Care Team Providers Name Role Phone Elsewhere, Pcp Primary Care Provider Unavailable Source Comments Patient records contain information from all sites at [facility]. For routine questions regarding patient records, call [phone] during business hours, M-F 8:00 AM - 5:00 PM Central Time. Record requests for emergency care only can be directed to [phone] at any time.[facility] Allergies Active Allergy Reactions Severity Noted Date Comments Aspirin GI intolerance High 01/16/2020 abd pain Tolmetin Hives, Rash High 06/14/2006 tolectin Medications Medication Sig Dispensed Refills Start Date End Date Status atorvastatin (LIPITOR) 10 Take 10 mg by 0 07/21/2020 Active mg tablet mouth at bedtime. fluticasone propionate Daily 0 02/18/2014 Active (FLONASE) 50 mcg/actuation nasal spray cholecalciferol (VITAMIN Daily 0 10/16/2019 Active D3) 50 mcg (2,000 Unit) tablet multivitamin renal Take 1 tablet 0 Active failure (DIALYVITE) 100-1 by mouth daily mg tablet with dinner. omega 4-gwd-sdh-fish oil Take by mouth. 0 Active 1,000 mg (120 mg-180 mg) capsule ergocalciferol (DRISDOL) Take 2,000 0 02/19/2015 Active 50,000 Unit capsule Units by mouth. naproxen sodium Twice A Day as 0 Active (ALEVE/ANAPROX) 220 mg needed tablet B complex-vitamins Take 1 tablet 0 Active (BALANCE B-50) tablet by mouth daily. cetirizine (ZyrTEC) 5 mg Take 5 mg by 0 Active tablet mouth as needed for allergies. Active Problems No known active problems Immunizations Name Administration Dates Next Due SARS-COV-2 (COVID-19) - MODERNA 12/25/2020 Social History Tobacco Use Types Packs/Day Years [...] or relatives? How often do you attend latter day or Never 2020 spiritism services? Do you belong to any clubs or Yes 08/28/2020 organizations such as latter day groups, unions, fraternal or athletic groups, or [...] place to sleep or slept in a chcf (including now)? Education Answer Date Recorded What is the highest level of school Master's degree (e.g., M A, MS, 08/28/2020 you have completed or the highest Sung, MEd, BUTTON BREAKER, MARY) degree you have received? Sex Assigned at Date Recorded Not on file Last Filed Vital Signs Vital Sign Reading [...] Mass Index 28.26 08/28/2020 12:47 PM CDT Plan of Treatment Health Maintenance Due Date Last Done Comments Bone Density Scan (Osteoporosis 1950 Screen) CT Colonography 1950 Cologuard 1950 Colonoscopy 1950 Colorectal Cancer Screening 1950 FIT 1950 Fasting Glucose for Diabetes 1950 Screening Hepatitis C Screening 1950 Mammogram 1950 Zoster Vaccines (2 of 3) 05/09/2015 03/14/2015, 03/18/2014 COVID-19 Vaccine (4 - Booster for 02/19/2021 12/25/2020, , Moderna series) 05/16/2020, Additional history exists Depression Screening (Annual 02/28/2021 PHQ-2) Fall Risk Screen (Annual) 02/28/2021 Influenza Vaccine (#1) 2021 12/01/2020, 11/24/2019, 12/19/2018, Additional history exists DTaP,Tdap,and Td Vaccines (3 - Td 02/15/2022 02/16/2012, , or Tdap) 03/17/2011, Additional history exists Pneumococcal vaccine (65+ years) Completed 10/16/2019, Insurance Payer Benefit Plan / Subscriber ID Effective Dates Phone Addre ss Type Group UCARE UCARE FOR [id number] 2019-Present [phone] [address] [place] [address] Care Teams Director Of Institutional Giving Relationship Specialty Start Date End Date Elsewhere, Pcp PCP - General Family Medicine 08/25/20
--- OUTSIDE RECORDS SUMMARY | 2021-12-01 18:02 | XMS_ITS | Encounter Summary ---
:1950 Author Organization [facility] Address [address] [place] [address] Care Team Providers Name Role Phone Elsewhere, Pcp Primary Care Provider Unavailable Reason for Visit Appointment Request (Routine) - Closed Specialty Diagnoses / Procedures Referred By Contact Refer red To Contact Kenisha Michael M.D. [address] [place] [address] Referral ID Status Reason Start Date Expiration Date Visits Requ ested Visits Authorized [id number] Closed 12/11/2020 12/11/2021 1 1 Encounter Details Date Type Department Care Team Description 12/25/2020 Immunization Department of [facility] Althea Michael M.D. Medicine, [facility], [address] [facility], in [place], [place] [address] [address] [facility] [address] [phone] Social History Tobacco Use Types Packs/Day Years [...] or relatives? How often do you attend synagogue or Never 2020 orthodoxy services? Do you belong to any clubs or Yes 08/28/2020 organizations such as synagogue groups, unions, fraternal or athletic groups, or [...] place to sleep or slept in a assisted (including now)? Education Answer Date Recorded What is the highest level of school Master's degree (e.g., Alec Quinones MS, 08/28/2020 you have completed or the highest Sung, MEd, COORDINATOR OF GENETIC SERVICES, MARY) degree you have received? Sex Assigned at Date Recorded Not on file documented as of this encounter Plan of Treatment Not on filedocumented as of this encounter Visit Diagnoses Not on filedocumented in this encounter Care Teams Fbi Field Agent Relationship Specialty Start Date End Date Elsewhere, Pcp PCP - General Family Medicine 08/25/20 documented as of this encounter
--- OUTSIDE RECORDS SUMMARY | 2021-12-01 18:02 | XMS_ITS | Encounter Summary ---
:1950 Author Organization [facility] Address [address] [place] [address] Care Team Providers Name Role Phone Elsewhere, Pcp Primary Care Provider Unavailable Reason for Referral Outpatient (Routine) - Closed Specialty Diagnoses / Procedures Referred By Contact Refer red To Contact Vascular Medicine Diagnoses Stenosis Carotid Artery Bilateral Imtiaz Lia [place] Biju Gonzalez [address] [place] [address] Referral ID Status Reason Start Date Expiration Date Visits Requ ested Visits Authorized [id number] Closed 08/22/2020 08/22/2021 1 1 Encounter Details Date Type Department Care Team Description 08/22/[address] [facility] Melissa Lai Carotid AND CLINICS Imtiaz Cardenas M.D. Artery Bilateral [address] [facility] (Primary Dx) [place] [address] [place], [place] [phone] Social History Tobacco Use Types Packs/Day Years [...] or relatives? How often do you attend scientology or Never 2020 catholic services? Do you belong to any clubs or Yes 08/28/2020 organizations such as scientology groups, unions, fraternal or athletic groups, or [...] place to sleep or slept in a long-term (including now)? Sex Assigned at Date Recorded Not on file documented as of this encounter Plan of Treatment Scheduled Referrals Name Type Priority Associated Diagnoses Order [facility] Outpatient Referral Routine Stenosis Carotid E xpected: Referral Artery Bilateral 08/22/2020 (Approximate), Expires: 2023 documented as of this encounter Visit Diagnoses Diagnosis Stenosis Carotid Artery Bilateral - Prim garrett documented in this encounter Care Teams Credit Department Manager Relationship Specialty Start Date End Date Elsewhere, Pcp PCP - General Family Medicine 08/25/20 documented as of this encounter
--- OUTSIDE RECORDS SUMMARY | 2021-12-01 18:02 | XMS_ITS | Encounter Summary ---
:1950 Author Organization [facility] Address [address] [place] [address] Care Team Providers Name Role Phone Elsewhere, Pcp Primary Care Provider Unavailable Reason for Visit Reason Comments Triage Comments Encounter Details Date Type Department Care Team Description 08/25/2020 Clinical Communication Department of Jose Muñoz Comments Vascular Medicine Provider in [place], [place] [address] [place] [address] Social History Tobacco Use Types Packs/Day Years [...] or relatives? How often do you attend anabaptist or Never 2020 confucianist services? Do you belong to any clubs or Yes 08/28/2020 organizations such as anabaptist groups, unions, fraternal or athletic groups, or [...] place to sleep or slept in a care home (including now)? Sex Assigned at Date Recorded Not on file documented as of this encounter Miscellaneous Notes Telephone Encounter - Dipika Lebron - 08/25/2020 9:45 AM CDT Images from the original note were not included. documented in this encounter Plan of Treatment Not on filedocumented as of this encounter Visit Diagnoses Not on filedocumented in this encounter Care Teams Gusset Stitcher Relationship Specialty Start Date End Date Elsewhere, Pcp PCP - General Family Medicine 08/25/20 documented as of this encounter
== END 2021-12-01 18:13 | disposition home or self-care (01) ==
LOC: ED 18:00
PROVIDERS: Emergency Provider Family Medicine; PCP Family Medicine
DX: K29.70 Gastritis, unspecified, without bleeding (principal); K52.9 Noninfective gastroenteritis and colitis, unspecified
CPT/HCPCS: 99282; 99283

== ENCOUNTER 2021-12-21 13:56 | Outpatient (CLI) | payer MEDICARE, SELFPAY ==
--- OUTSIDE RECORDS SUMMARY | 2021-12-24 10:07 | XMS_ITS | Encounter Summary ---
:1950 Author Organization [facility] Address [address] [place] [address] Care Team Providers Name Role Phone Elsewhere, Pcp Primary Care Provider Unavailable Reason for Visit Outpatient (Routine) - Closed Specialty Diagnoses / Procedures Referred By Contact Refer red To Contact Vascular Medicine Diagnoses Stenosis Carotid Artery Bilateral Hugh Nguyen [place] M.D. [address] [place] [address] Referral ID Status Reason Start Date Expiration Date Visits Requ ested Visits Authorized [id number] Closed 08/28/2020 08/28/2021 1 1 Encounter Details Date Type Department Care Team Description 10/06/2020 Office Visit Department of Vascular Patrick, Steno sis Carotid Artery Medicine in [facility] Alec Maradiaga Bilateral [place] [address] [facility] [address] [place] [phone] Social History Tobacco Use Types Packs/Day Years [...] more drinks on one Never 08/28/2020 occasion? Social Isolation Answer Date Recorded In a typical week, how many times do you More than three pedro es a week 08/28/2020 talk on the phone with family, friends, or neighbors? How often do you get together with friends More than three t imes a week 08/28/2020 or relatives? How often do you attend baptist or Never 2020 christian services? Do you belong to any clubs or Yes 08/28/2020 organizations such as baptist groups, unions, fraternal or athletic groups, or [...] place to sleep or slept in a jail (including now)? Education Answer Date Recorded What is the highest level of school Master's degree (e.g., Alec Quinones MS, 08/28/2020 you have completed or the highest Sung, MEd, EVAPORATOR REPAIRER, MARY) degree you have received? Sex Assigned [...] Bilateral documented in this encounter Care Teams Fender Mechanic Relationship Specialty Start Date End Date Elsewhere, Pcp PCP - General Family Medicine 08/25/20 documented as of this encounter
--- OUTSIDE RECORDS SUMMARY | 2021-12-24 10:07 | XMS_ITS | Encounter Summary ---
:1950 Author Organization [facility] Address [address] [place] [address] Care Team Providers Name Role Phone Elsewhere, Pcp Primary Care Provider Unavailable Reason for Referral Outpatient (Routine) - Closed Specialty Diagnoses / Procedures Referred By Contact Refer red To Contact Diagnoses Stenosis Carotid Artery Bilateral Hugh Nguyen M.D. [facility] Procedures [place] Carotid Bilateral [address] [place] [address] Referral ID Status Reason Start Date Expiration Date Visits Requ ested Visits Authorized [id number] Closed 08/28/2020 08/28/2021 1 1 Reason for Visit Outpatient (Routine) - Closed Specialty Diagnoses / Procedures Referred By Contact Refer red To Contact Diagnoses Stenosis Carotid Artery Bilateral Hugh Nguyen M.D. [facility] Procedures US Carotid Bilateral [address] [place] [address] Referral ID Status Reason Start Date Expiration Date Visits Requ ested Visits Authorized [id number] Closed 08/28/2020 08/28/2021 1 1 Encounter Details Date Type Department Care Team Description 10/06/2020 Hospital Encounter Department of Patrick, Stenosis Carotid Radiology, Angelica Malcolm M.D. Artery Bilateral Building, in [address] [place], [place] 200 [facility] [place] [address] [place], [place] [phone] (Work) [phone] Social History Tobacco Use Types Packs/Day Years [...] or relatives? How often do you attend pentecostalism or Never 2020 buddhism services? Do you belong to any clubs or Yes 08/28/2020 organizations such as pentecostalism groups, unions, fraternal or athletic groups, or [...] place to sleep or slept in a retirement (including now)? Education Answer Date Recorded What is the highest level of school Master's degree (e.g., M Joni, MS, 08/28/2020 you have completed or the highest Sung, MEd, INVOICE CHECKER, MARY) degree you have received? Sex Assigned [...] 0 (ALEVE/ANAPROX) 220 mg needed tablet omega 9-qat-sxi-fish oil Take by mouth. 0 1,000 mg [...] the normal distal ICA in accordance with [facility] Ecuadorean Symptomatic Carotid Endarterectomy Trial (NASCET). Procedure Note [...] the normal distal ICA in accordance with [place]cuadorean Symptomatic Carotid Endarterectomy Trial (NASCET). IMPRESSION: Negative carotid ultrasound. Both verteb ral arteries are patent with antegrade flow. Hugh GORDON US PROCEDURES documented in this encounter Visit Diagnoses Diagnosis Stenosis Carotid Artery Bilateral documented in this encounter Care Teams Freight Car Cleaner Relationship Specialty Start Date End Date Elsewhere, Pcp PCP - General Family Medicine 08/25/20 documented as of this encounter
--- OUTSIDE RECORDS SUMMARY | 2021-12-24 10:07 | XMS_ITS | Encounter Summary ---
:1950 Author Organization [facility] Address [address] [place] [address] Care Team Providers Name Role Phone Elsewhere, Pcp Primary Care Provider Unavailable Reason for Referral Appointment Request (Routine) - Closed Specialty Diagnoses / Procedures Referred By Contact Refer red To Contact Kenisha Michael M.D. [address] [place], [place] [phone] Referral ID Status Reason Start Date Expiration Date Visits Requ ested Visits Authorized [id number] Closed 12/11/2020 12/11/2021 1 1 Encounter Details Date Type Department Care Team Description 11/25/2020 Orders Only RST PCP HL MNT Kenisha Michael M.D. [address] [place], [place] [phone] (Wo rk) Social History [...] or relatives? How often do you attend hoahaoism or Never 2020 restorationism services? Do you belong to any clubs or Yes 08/28/2020 organizations such as hoahaoism groups, unions, fraternal or athletic groups, or [...] place to sleep or slept in a fdc (including now)? Education Answer Date Recorded What is the highest level of school Master's degree (e.g., Alec Quinones MS, 08/28/2020 you have completed or the highest Sung, Alexa, DIRECTOR FUNDRAISING, MARY) degree you have received? Sex Assigned at Date Recorded Not on file documented as of this encounter Plan of Treatment Scheduled Referrals Name Type Priority Associated Order Schedule Diagnoses Covid immunization Outpatient Referral Routine Ex pected: office visit Booster 021 (Approximate), Expires: 11/25/2021 documented as of this encounter Visit Diagnoses Not on filedocumented in this encounter Care Teams Online Communications Manager Relationship Specialty Start Date End Date Elsewhere, Pcp PCP - General Family Medicine 08/25/20 documented as of this encounter
--- OUTSIDE RECORDS SUMMARY | 2021-12-24 10:07 | XMS_ITS | Clinical Summary ---
:1950 Author Organization [facility] [place] [address] Care Team Providers Name Role Phone Kathie Flores MD Primary Care Provider [phone] Allergies Active Allergy Reactions Severity Noted Date Comments Aspirin GI Upset 01/16/2020 abd pain Tolmetin Rash 06/14/2006 tolectin Medications Medication Sig Dispensed Refills Start Date End Date Status fluticasone (50 mcg per Inhale 1 [place] 1 Bottle 3 02/18/2014 Active actuation) nasal [...] atherosclerosis of unspecified type of vessel, 08/2812/29/2009 [place] or graft CVD (cardiovascular disease) 09/15/2009 12/29/2009 [...] Comments Blood Pressure 136/80 01/17/2020 10:25 AM CURING SUPERVISOR Pulse 58 01/17/2020 10:25 AM CURING SUPERVISOR Temperature 36.3 ??C (97.4 ??F) 01/17/2020 8:33 AM CURING SUPERVISOR Respiratory Rate 18 01/17/2020 10:25 AM CURING SUPERVISOR Oxygen Saturation 99% 01/17/2020 10:25 AM CURING SUPERVISOR Inhaled Oxygen Concentration - - Weight 91.6 kg (202 lb) 01/16/2020 12:00 PM CURING SUPERVISOR Height 182.9 cm (6') 01/16/2020 12:00 PM CURING SUPERVISOR Body Mass Index 27.4 01/16/2020 12:00 PM CURING SUPERVISOR Plan of Treatment Upcoming Encounters Date Type Specialty Care Team Description 01/08/2022 [place] [address] [place], [place] [address] (Wo rk) 03/03/2022 [place] [address] [place], [place] [address] (Wo rk) Health Maintenance [...] history exists COVID-19 vaccine series (4 - 02/19/2021 12/25/2020, 021, Booster for Moderna series) 04/18/2020 [...] Group MEDICARE PART A MEDICARE PART A [id number] 2017-Present ATTN: CLAIMS - HB USE ONLY HB ONLY [address] [place] [address] [facility] MR OLIVARES MEDICARE [id number] 2019-Presen [address] [place] [address] Advance Directives Latest Code Status on File Code Status Date Activated Date Inactivated Comments Full Code 01/17/2020 8:14 AM 01/17/2020 1:18 PM Code Status Discussion: Not Discussed Care Teams Corporate Manager Relationship Specialty Start Date End Date Kathie Flores MD PCP - General Family Practice 12/16/171999 [place] [address]
--- OUTSIDE RECORDS SUMMARY | 2021-12-24 10:07 | XMS_ITS | Encounter Summary ---
:[address] [facility] Address [address] [place] [address] Care Team Providers Name Role Phone Elsewhere, Pcp Primary Care Provider Unavailable Encounter Details Date Type Department Care Team Description 03/10[facility]21 [facility] Kathie Flores Arthritis Personal AND [facility] [place] (Primary Dx) [address] [facility] [address] [place] [address] [place], [place] [phone] Social History Tobacco Use Types Packs/Day Years [...] or relatives? How often do you attend gnosticism or Never 2020 latter-day services? Do you belong to any clubs or Yes 08/28/2020 organizations such as gnosticism groups, unions, fraternal or athletic groups, or [...] have completed or the highest Sung, MEd, CLIENT DIRECTOR, MARY) degree you have received? Sex Assigned at Date Recorded Not on file documented as of this encounter Plan of Treatment Not on filedocumented as of this encounter Visit Diagnoses Diagnosis Arthritis Personal History - Primary documented in this encounter Care Teams City Superintendent Relationship Specialty Start Date End Date Elsewhere, Pcp PCP - General Family Medicine 08/25/20 documented as of this encounter
--- OUTSIDE RECORDS SUMMARY | 2021-12-24 10:07 | XMS_ITS | Encounter Summary ---
:1950 Author Organization [facility] Address [address] [place] [address] Care Team Providers Name Role Phone Elsewhere, Pcp Primary Care Provider Unavailable Reason for Referral Outpatient (Routine) - Closed Specialty Diagnoses / Procedures Referred By Contact Refer red To Contact Vascular Medicine Diagnoses Stenosis Carotid Artery Bilateral Imtiaz Lai [place] M.D. [address] [place] [address] Referral ID Status Reason Start Date Expiration Date Visits Requ ested Visits Authorized [id number] Closed 08/22/2020 08/22/2021 1 1 Encounter Details Date Type Department Care Team Description 08/22/[address] [facility] Melissa Lai Carotid AND CLINICS Imtiaz Cardenas M.D. Artery Bilateral [address] [facility] (Primary Dx) [place] [address] [place], [place] [phone] Social History Tobacco Use Types Packs/Day Years [...] or relatives? How often do you attend nondenominational or Never 2020 baptism services? Do you belong to any clubs or Yes 08/28/2020 organizations such as nondenominational groups, unions, fraternal or athletic groups, or [...] place to sleep or slept in a intermediate (including now)? Sex Assigned at Date Recorded Not on file documented as of this encounter Plan of Treatment Scheduled Referrals Name Type Priority Associated Diagnoses Order S [facility] Outpatient Referral Routine Stenosis Carotid E xpected: Referral Artery Bilateral 08/22/2020 (Approximate), Expires: 2023 documented as of this encounter Visit Diagnoses Diagnosis Stenosis Carotid Artery Bilateral - Prim garrett documented in this encounter Care Teams Salvage Winder Relationship Specialty Start Date End Date Elsewhere, Pcp PCP - General Family Medicine 08/25/20 documented as of this encounter
--- OUTSIDE RECORDS SUMMARY | 2021-12-24 10:07 | XMS_ITS | Encounter Summary ---
:1950 Author Organization [facility] Address [address] [place] [address] Care Team Providers Name Role Phone Elsewhere, Pcp Primary Care Provider Unavailable Reason for Visit Reason Comments Triage Encounter Details Date Type Department Care Team Description 03/12/2021 Clinical Communication Division of Marsha Padilla Rheumatology in S, M.D. [place], [place] [address] [facility] [address] [place] [phone] Social History Tobacco Use Types Packs/Day Years [...] do you attend mormon or Never 2020 protestant services? Do you belong to any clubs [...] place to sleep or slept in a snf (including now)? Education Answer Date Recorded What is the highest level of school Master's degree (e.g., M A, MS, 08/28/2020 you have completed or the highest Sung, MEd, DIRECTOR MONEY, MARY) degree you have received? Sex Assigned at Date Recorded Not on file documented as of this encounter Miscellaneous Notes Telephone Encounter - Marsha Padilla M.D. - 03/12/2021 11:22 AM POSITION CLERK Rheumatology Appointment Request Form Triage Appointment request: DENIED Explanation: Indication (+SURESH) not appropriate for Rheumatology: suggest referral to another Department or Division: HALI Thank you. Marsha Padilla M.D. TION CLERK Telephone Encounter - Giuliano Luz - 03/12/2021 11:02 AM CST New Patient Referral for: Arthritis Personal History [Z87.39] OSM: Chart and CE Scheduling Priority: Send Response to: RST U SCHEDULING Rheumatology ARF Responses Name: Jeanette Rios [facility] Number: [id number] Birthdate: 1950 Email: [email or web address] My Info Rheumatology Model of Care I have read [...] are your goals for your visit to [facility]: To work with a specialist in rheumatology to determine which autoimmune disease I may have and develop and appropriate treatment plan so I can return to doing the activities I enjoy. Who is referring you to [facility] (provide name and address): Dr. Althea Flores [facility] and [address] [address] Is this a Application Security Developer: Yes Is this your local provider that you would like us to communicate with: Yes What are your goals for your visit to [facility]: To work with a specialist in rheumatology [...] you should see any specialists while at [facility]: Yes Please list any specialists that you or your local provider feel you should see while you are at [facility] and explain: Rhematologist How would you rate [...] best phone number to reach you at: [phone] TION CLERK documented in this encounter Plan of Treatment Not on filedocumented as of this encounter Visit Diagnoses Not on filedocumented in this encounter Care Teams Land Planner Relationship Specialty Start Date End Date Elsewhere, Pcp PCP - General Family Medicine 08/25/20 documented as of this encounter
--- OUTSIDE RECORDS SUMMARY | 2021-12-24 10:07 | XMS_ITS | Encounter Summary ---
:1950 Author Organization [facility] Address [address] [place] [address] Care Team Providers Name Role Phone Elsewhere, Pcp Primary Care Provider Unavailable Reason for Visit Reason Comments Triage Comments Encounter Details Date Type Department Care Team Description 08/25/2020 Clinical Communication Department of Jose Muñoz Comments Vascular Medicine Provider in [place], [place] [address] [place] [address] Social History Tobacco Use Types Packs/Day Years [...] or relatives? How often do you attend adventism or Never 2020 hindu services? Do you belong to any clubs or Yes 08/28/2020 organizations such as adventism groups, unions, fraternal or athletic groups, or [...] or slept in a fci (including now)? Sex Assigned at Date Recorded Not on file documented as of this encounter Miscellaneous Notes Telephone Encounter - Dipika Lebron - 08/25/2020 9:45 AM CDT Images from the original note were not included. documented in this encounter Plan of Treatment Not on filedocumented as of this encounter Visit Diagnoses Not on filedocumented in this encounter Care Teams Projection Engineer Relationship Specialty Start Date End Date Elsewhere, Pcp PCP - General Family Medicine 08/25/20 documented as of this encounter
--- OUTSIDE RECORDS SUMMARY | 2021-12-24 10:07 | XMS_ITS | Encounter Summary ---
:1950 Author Organization [facility] Address [address] [place] [address] Care Team Providers Name Role Phone Elsewhere, Pcp Primary Care Provider Unavailable Reason for Visit Appointment Request (Routine) - Closed Specialty Diagnoses / Procedures Referred By Contact Refer red To Contact Kenisha Michael M.D. [address] [place] [address] Referral ID Status Reason Start Date Expiration Date Visits Requ ested Visits Authorized [id number] Closed 12/11/2020 12/11/2021 1 1 Encounter Details Date Type Department Care Team Description 12/25/2020 Immunization Department of [facility] Althea Michael M.D. Medicine, [facility], [address] [facility], in [place], [place] [address] [address] [place] [address] [phone] Social History Tobacco Use Types Packs/Day Years [...] do you attend adventism or Never 2020 moravian services? Do you belong to any clubs [...] place to sleep or slept in a custodial (including now)? Education Answer Date Recorded What is the highest level of school Master's degree (e.g., Alec Quinones MS, 08/28/2020 you have completed or the highest Sung, MEd, GEOSCIENCE SPECIALIST, MARY) degree you have received? Sex Assigned at Date Recorded Not on file documented as of this encounter Plan of Treatment Not on filedocumented as of this encounter Visit Diagnoses Not on filedocumented in this encounter Care Teams Ticker Wirer Relationship Specialty Start Date End Date Elsewhere, Pcp PCP - General Family Medicine 08/25/20 documented as of this encounter
--- OUTSIDE RECORDS SUMMARY | 2021-12-24 10:07 | XMS_ITS | Encounter Summary ---
:1950 Author Organization [facility] Address [address] [place] [address] Care Team Providers Name Role Phone Elsewhere, Pcp Primary Care Provider Unavailable Reason for Referral Outpatient (Routine) - Closed Specialty Diagnoses / Procedures Referred By Contact Refer red To Contact Vascular Medicine Diagnoses Stenosis Carotid Artery Bilateral Hugh Nguyen [place] M.D. [address] [place] [address] Referral ID Status Reason Start Date Expiration Date Visits Requ ested Visits Authorized [id number] Closed 08/28/2020 08/28/2021 1 1 Outpatient (Routine) - Closed Specialty Diagnoses / Procedures Referred By Contact Refer red To Contact Diagnoses Stenosis Carotid Artery Bilateral Hugh Nguyen M.D. [place] [facility] [place] Carotid Bilateral [address] [place] [address] Referral ID Status Reason Start Date Expiration Date Visits Requ ested Visits Authorized [id number] Closed 08/28/2020 08/28/2021 1 1 Reason for Visit Outpatient (Routine) - Closed Specialty Diagnoses / Procedures Referred By Contact Refer red To Contact Vascular Medicine Diagnoses Stenosis Carotid Artery Bilateral Imtiaz Lai [place] [facility] Gonzalez [address] [place] [address] Referral ID Status Reason Start Date Expiration Date Visits Requ ested Visits Authorized [id number] Closed 08/22/2020 08/22/2021 1 1 Encounter Details Date Type Department Care Team Description 08/28/2020 Comprehensive Visit Department of Maritza Nguyen s Carotid Artery Bilateral (Primary Dx); Vascular Medicine in [place] Maradiaga Hyperlipidemia; [place], [place] [address] [facility] Smoking Tobacco Use Personal History; [address] [place], [place] B[place] [phone] [phone] Social History Tobacco Use Types Packs/Day Years [...] or relatives? How often do you attend restoration or Never 2020 yazidism services? Do you belong to any clubs or Yes 08/28/2020 organizations such as restoration groups, unions, fraternal or athletic groups, or [...] place to sleep or slept in a skilled nursing (including now)? Education Answer Date Recorded What is the highest level of school Master's degree (e.g., M Joni, MS, 08/28/2020 you have completed or the highest Sung, MEd, MILL OPERATOR, MARY) degree you have received? Sex [...] CDT REFERRAL SOURCE Imtiaz Carrera M.D. [address] [place] [address] SUBJECTIVE CHIEF COMPLAINT / REASON FOR VISIT [...] was wearing a mask due to the COVID- pandemic. Respiratory: Lungs were clear to auscultation. [...] Name Type Priority Associated Diagnoses Order S [facility] Vascular Medicine Outpatient Referral Routine Stenosis [...] distal ICA in accordance with Nor th [place] Symptomatic Carotid Endarterectomy Trial (NASCET). Procedure Note [...] distal ICA in accordance with Nor th [place] Symptomatic Carotid Endarterectomy Trial (NASCET). IMPRESSION: Negative carotid ultrasound. Both verteb ral arteries are patent with antegrade flow. Hugh Nguyen M.D. IMYun US PROCEDURES documented in this encounter Visit Diagnoses Diagnosis Stenosis Carotid Artery Bilateral - Prim garrett Hyperlipidemia Smoking Tobacco Use Personal History Tinnitus Bilateral Stenosis Carotid Artery Bilateral documented in this encounter Care Teams Managing Consultant Clinical Professor Relationship Specialty Start Date End Date Elsewhere, Pcp PCP - General Family Medicine 08/25/20 documented as of this encounter
--- OUTSIDE RECORDS SUMMARY | 2021-12-24 10:07 | XMS_ITS | Clinical Summary ---
:1950 Author Organization [facility] Address [address] [place] [address] Care Team Providers Name Role Phone Elsewhere, Pcp Primary Care Provider Unavailable Source Comments Patient records contain information from all sites at [facility]. For routine questions regarding patient records, call [phone] during business hours, M-F 8:00 AM - 5:00 PM Central Time. Record requests for emergency care only can be directed to [phone] at any time.[facility] Allergies Active Allergy Reactions Severity Noted Date [...] mouth daily mg tablet with dinner. omega 6-bek-hqt-fish oil Take by mouth. 0 Active 1,000 [...] you attend latter day or Never 2020 anabaptism services? Do you belong to any clubs [...] have completed or the highest Sung, MEd, GLASS MOULD CLEANER, MARY) degree you have received? Sex Assigned [...] Vaccines (2 of 3) 05/09/2015 03/14/2015, 03/18/2014 Depression Screening (Annual 02/28/2021 PHQ-2) Fall Risk Screen (Annual) 02/28/2021 Influenza Vaccine (#1) 2021 12/01/2020, 11/24/2019, 12/19/2018, Additional history exists DTaP,Tdap,and Td Vaccines (3 - Td 02/15/2022 02/16/2012, , or Tdap) 03/17/2011, Additional history exists Pneumococcal vaccine (65+ years) Completed 10/16/2019, COVID-19 Vaccine Completed 11/24/2021, 12/25/2020, 05/16/2020, Additional history exists Insurance Payer Benefit Plan / Subscriber ID Effective Dates Phone Addre ss Type Group ARE [facility] FOR [id number] 2019-Present [phone] [address] [place] [address] Care Teams Bit Tripoler Relationship Specialty Start Date End Date Elsewhere, Pcp PCP - General Family Medicine 08/25/20
== END 2021-12-21 13:57 | disposition home or self-care (01) ==
LOC: NFLDUCREF 12-24 10:05
PROVIDERS: PCP Family Medicine; Visit Provider Registered Nurse
DX: R35.0 Frequency of micturition (principal); N39.0 Urinary tract infection, site not specified
CPT/HCPCS: 87086; 87186

== ENCOUNTER 2022-03-05 08:42 | Outpatient (CLI) | payer MEDICARE, SELFPAY ==
[2022-03-05 09:50] LABS: Albumin* 4.2 g/dL (3.3-5.0); Chloride* 108 mmol/L (96-114)
[2022-03-05 09:51] LABS: Potassium* 4.7 mmol/L (3.6-5.1); Sodium* 142 mmol/L (135-149)
[2022-03-05 09:53] LABS: Alkaline Phosphatase* 65 U/L (40-150); Aspartate Amino Transferase* 30 U/L (12-35); Bilirubin Total* 0.6 mg/dL (0.1-1.5); Carbon Dioxide* 28 mmol/L (20-32); Creatinine* 0.8 mg/dL (0.5-1.5); Estimated Glomerular Filt Rate 80 ml/min; Total Protein* 6.7 g/dL (6.0-8.3)
[2022-03-05 09:54] LABS: Alanine Aminotransferase* 29 U/L (4-35); Blood Urea Nitrogen* 23 mg/dL (7-30); Calcium* 9.4 mg/dL (8.4-10.6); Glucose* 90 mg/dL (60-115)
[2022-03-05 10:13] LABS: Vitamin D 25 Hydroxy* 30 ng/mL (30-80)
[2022-03-05 10:46] LABS: Vitamin B12* 584 pg/mL (243-894)
== END 2022-03-05 08:43 | disposition home or self-care (01) ==
PROVIDERS: PCP Family Medicine; Visit Provider Family Medicine
DX: R53.83 Other fatigue (principal); E55.9 Vitamin D deficiency, unspecified; E78.5 Hyperlipidemia, unspecified; Z86.79 Personal history of other diseases of the circulatory system
CPT/HCPCS: 80053; 82306; 82607; 84443

== ENCOUNTER 2022-05-03 14:46 | Outpatient (CLI) | payer MEDICARE, SELFPAY | END 2022-05-03 14:47 | disposition home or self-care (01) | LOC: RAD 14:47 | PROVIDERS: PCP Family Medicine; Visit Provider Internal Medicine | DX: I47.1 Supraventricular tachycardia (principal) | CPT/HCPCS: 93306; Q9957 ==

== ENCOUNTER 2022-06-21 13:38 | Emergency (ER) | payer MEDICARE, SELFPAY ==
[2022-06-21 13:51] VITALS: BP 130/78; PULSE 70; RESP 16; TEMP 36.3; O2SAT 97; BMI 27.1
--- NOTE | 2022-06-21 16:21 | ED.GENADULT ---
HPI - General Adult General Time Seen by Provider: 16:21 Date Seen: 06/21/22 Chief complaint: Diarrhea Stated complaint: Lower Abdominal Pain Mucus in Stool Time Seen by Provider: 06/21/22 16:11 Source: patient and RN notes reviewed Mode of arrival: ambulatory Limitations: no limitations History of Present Illness HPI narrative: Patient is not in her room when I go to see her. Will cowlitz back in a few minutes to see if she is back in there. Patient is seen and evaluated, coming in with complaint of diarrhea starting yesterday about 10:00 a.m.. She states she started with mucousy diarrhea, had some small bits of formed stool in it. She maybe went every 30-45 minutes yesterday. She was surprised but was able to sleep well last night. She had return of diarrhea this morning, is been going frequently again. It is switched over to more diarrheal looking stool. There has been no blood. She has had abdominal cramping. No nausea or vomiting, states she is actually hungry. Has been trying to keep up with fluids. She was in [place] June 01 through the , felt fine until yesterday. No one else around her is ill. She has not been on any recent antibiotics, no history of C difficile. She had an episode a colitis when she was younger, in college. Feels bloated. Related Data Home Medications Medication Instructions Recorded Confirmed magnesium oxide 400 mg PO QDAY 08/26/21 04/20/22 naproxen sodium 220 mg tablet 220 mg PO PRN 08/26/21 04/20/22 vitamin B complex 1 tab PO QDAY 11/20/21 04/20/22 Previous Rx's Medication Instructions Recorded cholecalciferol (vitamin D3) 50 50 mcg PO QDAY #100 caps 11/20/21 mcg (2,000 unit) capsule cyanocobalamin (vitamin B-12) 1,000 mcg PO QDAY #100 caps 11/20/21 1,000 mcg capsule fluticasone propionate 50 1 spray intranasal DAILY PRN 11/20/21 mcg/actuation nasal allergy symptoms #16 grams spray,suspension rosuvastatin 5 mg tablet 5 mg PO DAILY #90 tabs 11/20/21 famotidine 20 mg tablet 20 mg PO QDAY #60 tabs 03/05/22 Allergies Allergy/AdvReac Type Severity Reaction Status Date / Time nitrofurantoin Allergy Intermediate Dizziness Verified 06/21/22 17:46 [From Macrobid] tolmetin Allergy Intermediate Hives Verified 06/21/22 17:46 aspirin AdvReac Intermediate Abdominal Verified 06/21/22 17:46 Pain Review of Systems Status of ROS: Reports: 10 or more systems reviewed and unremarkable except as noted in History and below [facility] Medical History (Updated 06/21/22 @ 19:38 by Josseline Webber MD) Abdominal discomfort ?R10.9 - Unspecified abdominal pain (ICD-10) Adverse effect of nitrofurantoin ?T37.8X5A - Adverse effect of other specified systemic anti-infectives and antiparasitics, initial encounter (ICD-10) Dyslipidemia ?E78.5 - Hyperlipidemia, unspecified (ICD-10) Dysuria ?R30.0 - Dysuria (ICD-10) History of depression ?Z86.59 - Personal history of other mental and behavioral disorders (ICD-10) History of fibromyalgia ?Z87.39 - Personal history of other diseases of the musculoskeletal system and connective tissue (ICD-10) History of rheumatoid arthritis ?Z87.39 - Personal history of other diseases of the musculoskeletal system and connective tissue (ICD-10) History of supraventricular tachycardia ?Z86.79 - Personal history of other diseases of the circulatory system (ICD-10) Low vitamin B12 level ?E53.8 - Deficiency of other specified B group vitamins (ICD-10) Mild sleep apnea (07/2018) ?G47.30 - Sleep apnea, unspecified (ICD-10) Burt's neuroma of right foot ?G57.61 - Lesion of plantar nerve, right lower limb (ICD-10) 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 ?B00.89 - Other herpesviral infection (ICD-10) Tinnitus ?H93.19 - Tinnitus, unspecified ear (ICD-10) Ventricular premature beats (2018) ?I49.3 - Ventricular premature depolarization (ICD-10) Vitamin D deficiency ?E55.9 - Vitamin D deficiency, unspecified (ICD-10) Surgical History H/O eye surgery (2019) ?Z98.890 - Other specified postprocedural states (ICD-10) History of arthroscopy of right knee (1977) ?Z98.890 - Other specified postprocedural states (ICD-10) History of arthroscopy of right knee (1983) ?Z98.890 - Other specified postprocedural states (ICD-10) History of right cataract extraction (06/2020) ?Z98.41 - Cataract extraction status, right eye (ICD-10) History of vaginal delivery Normal colonoscopy (2013) Family History (Updated 03/05/22 @ 06:23 by Kathie Flores MD) Brother Cardiac arrhythmia Lupus erythematosus H/O angioplasty, Onset Age: 45 Mother Alzheimers disease, Onset Age: 75 Stroke, Onset Age: 80 Father Basal cell carcinoma CHF (congestive heart failure), Onset Age: 86 Cardiac arrhythmia, Onset Age: 65 Maternal Grandmother Breast cancer, Onset Age: 40 Other Parkinson's disease Social History (Updated 03/05/22 @ 08:30 by Kathie Flores MD) Narrative: , 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, 2 kids non-smoker- quit age 32, 6 pack years social drinker- 6/week exercises 3-4 times per week- 50N silver sneakers, gardening health care directive on file- health care directive completed on 06/05/19, reviewed and sent for scanning to medical record on 11/21/20 Smoking Status: Former smoker Do you use any of these nicotine containing products: None Second hand tobacco smoke exposure: No How often do you have a drink containing alcohol: 2-3 times a week How many standard drinks containing alcohol do you have on a typical day: 1 or 2 How often do you have six or more drinks on one occasion: Never AUDIT-C Alcohol total score: 3 Non-prescribed substance use: denies use Little interest or pleasure in doing things: not at all Feeling down, depressed, or hopeless: not at all Exam Const: Vital Signs, click to edit/add: Vital Signs - 24 hr 06/21/22 13:51 06/21/22 17:02 Temperature 97.3 F L Pulse Rate [Pulse Oximeter] 70 64 Respiratory Rate 16 18 Blood Pressure [Ri ght Upper Arm] 130/78 134/78 Pulse Oximetry 97 98 Oxygen Delivery Me thod Room Air Room Air Documenting provider has reviewed patient's vital signs: yes Common normals: no apparent distress, average body habitus, oriented x3, no limitations, healthy appearing, alert and well nourished General appearance: cooperative, comfortable, well kempt and well developed HENMT: Common normals: normocephalic, head/scalp atraumatic, hearing grossly normal bilaterally, external ears normal, external nose normal, moist oral mucous membranes and oropharynx normal Head and scalp: normocephalic and atraumatic Nose: external nose normal External ear: external ears normal Eye: Common normals: PERRL, EOMs intact bilaterally, conjunctivae normal and no scleral icterus Conjunctiva: conjunctiva(e) normal Pupil: PERRL Neck & C-Spine: Common normals: full ROM, no lymphadenopathy, supple and no JVD Resp: Common normals: normal respiratory effort, no retractions, no use of accessory muscles and clear to auscultation bilaterally Auscultation: clear to auscultation bilaterally Cardio: Common normals: no JVD, regular rate, regular rhythm, S1 normal heart sound, S2 normal heart sound, no gallops, no clicks and no murmurs Rate: regular rate Rhythm: regular rhythm Heart sounds: S1 normal and S2 normal GI: Common normals: Normal to inspection, nondistended, normoactive bowel sounds present, soft to palpation, non-tender, no hepatosplenomegaly and no masses Palpation: soft and no hepatosplenomegaly Neuro: Common normals: oriented x3 Sensorium/orientation: alert Psych: Appearance: well kempt Course Course Hospital Course: Patient states she is left specimen, will do stool culture and C difficile. She does not look toxic or very ill, thus making me think less likely that this is a C difficile colitis. With the mucus, do wonder more about non infectious colitis. We discussed CT imaging and she would like to proceed. Will get baseline labs, give her L of IV fluid. I do see she takes NSAIDs. Certainly could be a viral diarrheal illness as well which would anticipate would be self limited. Reevaluation(s) Reevaluation #1: Have reviewed patient's CT and her completely normal labs with her. Did review the possibility of the radiologist commenting on the small intramural focal abscess in the sigmoid colon. Did discuss this with our surgeon, with normal labs and benign abdominal exam, she agrees that patient can likely be observed. I would not recommend antibiotics, would not recommend antidiarrheals at this time. Time: 19:08 Vital Signs Vital signs: Initial Vital Signs Temperature 97.3 F L 06/21/22 13:51 Temperature Source Temporal Artery Scan 06/21/22 13:51 Pulse Rate 70 06/21/22 13:51 Respiratory Rate 16 06/21/22 13:51 Blood Pressure 130/78 06/21/22 13:51 Blood Pressure Mean 95 06/21/22 13:51 Pulse Oximetry 97 06/21/22 13:51 Oxygen Delivery Method Room Air 06/21/22 13:51 Vital Signs Temperature 97.3 F L 06/21/22 13:51 Pulse Rate 70 06/21/22 13:51 Respiratory Rate 16 06/21/22 13:51 Blood Pressure 130/78 06/21/22 13:51 Pulse Oximetry 97 06/21/22 13:51 Oxygen Delivery Method Room Air 06/21/22 13:51 Temperature 97.3 F L 06/21/22 13:51 Pulse Rate 64 06/21/22 17:02 Respiratory Rate 18 06/21/22 17:02 Blood Pressure 134/78 06/21/22 17:02 Pulse Oximetry 98 06/21/22 17:02 Oxygen Delivery Method Room Air 06/21/22 17:02 Medical Decision Making Lab Data Lab results reviewed: Yes I reviewed the patient's lab results Labs: Lab Results 06/21/22 06/21/22 Range/Units 16:30 17:05 WBC 6.43 (4.50-11.00) K/uL RBC 4.59 (4.00-5.20) m/uL Hgb 15.0 (12.0-16.0) gm/dL Hct 44.1 (33.0-51.0) % MCV 96 (80-100) fL MCH 33 (26-34) pg MCHC 34 (32-36) gm/dL RDW Coeff of Roopa 12.4 (11.5-15.5) % Plt Count 191 (140-440) K/uL Neut % (Auto) 59.7 (42.0-72.0) % Lymph % (Auto) 31.4 (20-44) % [place] % (Auto) 7.5 (0.0-11.0) % Eos % (Auto) 0.8 (0.0-7.0) % Baso % (Auto) 0.6 (0.0-3.0) % Neut # (Auto) 3.84 (1.7-7.0) K/uL Lymph # (Auto) 2.02 (0.90-2.90) K/uL [place] # (Auto) 0.50 (0.00-0.90) K/UL Eos # (Auto) 0.05 (0.00-0.50) K/uL Baso # (Auto) 0.04 (0.00-0.30) K/uL Sodium 140 (135-149) mmol/L Potassium 3.8 (3.6-5.1) mmol/L Chloride 106 (96-114) mmol/L Carbon Dioxide 26 (20-32) mmol/L BUN 18 (7-30) mg/dL Creatinine 0.7 (0.5-1.5) mg/dL Estimated Creat Clear 61.27 Estimated GFR 94 ml/min Glucose 94 (60-115) mg/dL Calcium 9.0 (8.4-10.6) mg/dL Total Bilirubin 0.6 (0.1-1.5) mg/dL AST 29 (12-35) U/L ALT 28 (4-35) U/L Alkaline Phosphatase 69 (40-150) U/L C-Reactive Protein 0.7 (0.5-1.0) mg/dL Total Protein 7.7 (6.0-8.3) g/dL Albumin 4.5 (3.3-5.0) g/dL Stl C.difficile Tox PCR Negative (Negative) St C. diff Tox Epid 027 PRESUMPTIVE NEGATIVE (Negative) Imaging Data CT scan - abdomen: Attestation: I have reviewed the pertinent imaging results. Radiologist's impression: Patient: ALEKSANDAR BEEBE Facility:?[facility] Patient ID:?[id number] Site Patient ID:?[id number]. Site :?[id number] Study:?CT Abdomen/Pelvis W/IV-06/21/2022 6:04:51 PM Ordering Physician:Anna Manjarrez Final Report: INDICATION: Abdominal pain, diarrhea. TECHNIQUE: CT of the abdomen and pelvis with 98 cc Isovue 370 IV contrast. Coronal and sagittal reconstructions. COMPARISON: None. FINDINGS: The liver, gallbladder, spleen, pancreas, and adrenal glands are negative. No biliary dilation. Hepatic and portal veins are patent. Symmetric enhancement of the kidneys. Small bilateral renal cortical and parapelvic cysts. No hydronephrosis or ureteral dilation. No obstructing urinary calculi identified. Decompressed urinary bladder. Uterus is unremarkable. No adnexal mass. No small bowel dilation. There are inflammatory changes of multiple distal small bowel loops with mild wall thickening and engorgement of the vasa recta. Moderate to large amount of stool throughout the colon. There is wall thickening of the mid to distal sigmoid colon and rectum with pericolonic fat stranding. There is diverticulosis in this region without a definite focally inflamed diverticulum. Findings may represent a nonspecific proctocolitis. There is a 1.2 cm rim enhancing fluid collection within the wall of the distal sigmoid colon which may represent an intramural abscess (series 2, image 122 and series 4 image 95). Negative appendix. No intraperitoneal free air. Trace free fluid in the right lower quadrant. Small fat containing umbilical hernia. Circumaortic left renal vein. No lymphadenopathy. The bones are unremarkable. Linear atelectasis or scarring in the lower lobes. IMPRESSION: 1. Inflammatory changes of the sigmoid colon and rectum suggesting a nonspecific proctocolitis. No definite focal diverticulitis. Possible small intramural abscess in the distal sigmoid colon. No free air. 2. Inflammatory changes of distal small bowel loops could be reactive versus a nonspecific enteritis. Please note that all CT scans at this facility use dose modulation, iterative reconstruction, and/or weight-based dosing when appropriate to reduce radiation dose to as low as reasonably achievable. Dictated by Bindu Joseph MD @ 06/21/2022 6:52:15 PM (Electronic Signature) Critical Care Time Critical Care Time Critical Care Time: No Discharge Plan Discharge Clinical Impression: Colitis Patient Disposition: Home, Self-Care Condition: Stable Instructions: Acute Diarrhea (ED), Nutrition Tips for Relief of Diarrhea (ED), Colitis (ED) Additional Instructions: Push fluids, review handout recommendations for eating solids with acute diarrhea. Would not recommend antidiarrheal at this point. The C difficile test came back negative. Stool culture is pending and is not likely to be back for about 5 days. If you develop increasing abdominal pain, bloody diarrhea, fever or vomiting with these symptoms, do recommend re-evaluation. Likewise, if you do not feel you can keep up adequate fluids with your level of diarrhea and a becoming dehydrated, seek re-evaluation. Hopefully this will start to resolve in the next 24 to 48 hours. Activity Level: Activity as Tolerated Prescriptions: No Action vitamin B complex Tablet 1 tab PO QDAY rosuvastatin 5 mg tablet 5 mg PO DAILY Qty: 90 4RF fluticasone propionate 50 mcg/actuation spray,suspension 1 spray intranasal DAILY PRN (Reason: allergy symptoms) Qty: 16 5RF cholecalciferol (vitamin D3) 50 mcg (2,000 unit) capsule 50 mcg PO QDAY Qty: 100 4RF cyanocobalamin (vitamin B-12) 1,000 mcg capsule 1,000 mcg PO QDAY Qty: 100 4RF naproxen sodium 220 mg tablet 220 mg PO PRN magnesium oxide 400 mg magnesium tablet 400 mg PO QDAY famotidine 20 mg tablet 20 mg PO QDAY Qty: 60 0RF Follow Up/Referrals: Kathie Flores MD [Primary Care Provider] - Stand Alone Forms: [email or web address] Info Instructions
--- NOTE | 2022-06-21 16:47 | CRLHL7_ITS ---
For Patients: As a result of the 21st Century Cures Act, medical imaging exams and procedure reports are released immediately into your electronic medical record. You may view this report before your referring provider. If you have questions, please contact your health care provider. INDICATION: Abdominal pain, diarrhea. TECHNIQUE: CT of the abdomen and pelvis with 98 cc Isovue 370 IV contrast. Coronal and sagittal reconstructions. COMPARISON: None. FINDINGS: The liver, gallbladder, spleen, pancreas, and adrenal glands are negative. No biliary dilation. Hepatic and portal veins are patent. Symmetric enhancement of the kidneys. Small bilateral renal cortical and parapelvic cysts. No hydronephrosis or ureteral dilation. No obstructing urinary calculi identified. Decompressed urinary bladder. Uterus is unremarkable. No adnexal mass. No small bowel dilation. There are inflammatory changes of multiple distal small bowel loops with mild wall thickening and engorgement of the vasa recta. Moderate to large amount of stool throughout the colon. There is wall thickening of the mid to distal sigmoid colon and rectum with pericolonic fat stranding. There is diverticulosis in this region without a definite focally inflamed diverticulum. Findings may represent a nonspecific proctocolitis. There is a 1.2 cm rim enhancing fluid collection within the wall of the distal sigmoid colon which may represent an intramural abscess (series 2, image 122 and series 4 image 95). Negative appendix. No intraperitoneal free air. Trace free fluid in the right lower quadrant. Small fat containing umbilical hernia. Circumaortic left renal vein. No lymphadenopathy. The bones are unremarkable. Linear atelectasis or scarring in the lower lobes. IMPRESSION: 1. Inflammatory changes of the sigmoid colon and rectum suggesting a nonspecific proctocolitis. No definite focal diverticulitis. Possible small intramural abscess in the distal sigmoid colon. No free air. 2. Inflammatory changes of distal small bowel loops could be reactive versus a nonspecific enteritis. Please note that all CT scans at this facility use dose modulation, iterative reconstruction, and/or weight-based dosing when appropriate to reduce radiation dose to as low as reasonably achievable. Dictated by Bindu Joseph MD @ 06/21/2022 6:52:15 PM (Electronically Signed)
[2022-06-21] MEDS: 0.9 % SODIUM CHLORIDE 1000 ml 1,000 ML 500 ML IV (17:00)
[2022-06-21 17:02] VITALS: BP 134/78; PULSE 64; RESP 18; O2SAT 98
[2022-06-21 17:19] LABS: Basophils Absolute Auto 0.04 K/uL (0.00-0.30); Basophils Percent Auto 0.6 % (0.0-3.0); Eosinophils Absolute Auto 0.05 K/uL (0.00-0.50); Eosinophils Percent Auto 0.8 % (0.0-7.0); Hematocrit 44.1 % (33.0-51.0); Lymphocytes Absolute Auto 2.02 K/uL (0.90-2.90); Lymphocytes Percent Auto 31.4 % (20-44); Mean Corpuscular HGB Conc 34 gm/dL (32-36); Mean Corpuscular Hemoglobin 33 pg (26-34); Mean Corpuscular Volume 96 fL (80-100); Monocytes Percent Auto 7.5 % (0.0-11.0); Neutrophils Absolute Auto 3.84 K/uL (1.7-7.0); Neutrophils Percent Auto 59.7 % (42.0-72.0); Platelet Count* 191 K/uL (140-440); RDW Coefficient of Variation % 12.4 % (11.5-15.5); Red Blood Count 4.59 m/uL (4.00-5.20); White Blood Count* 6.43 K/uL (4.50-11.00)
[2022-06-21 17:26] LABS: Slide Review Reflex No
--- OUTSIDE RECORDS SUMMARY | 2022-06-21 17:26 | XMS_ITS | Continuity of Care Document ---
Author Name Unknown Organization [facility] Address [address] [address] [place] [address] Phone Care Team Providers Care Gold Letterer Name Role Phone Nicole Sloan MD Unavailable Unavailable Allergies, Adverse Reactions, Alerts Substance Reaction Status Criticality TOLMETIN SODIUM Rash(severe) Active No Informati on Medications Medication Instructions Dosage Effective Dates (start - stop) Status Comments Aleve 220 mg tablet take 1 tablet by oral route every 12 hours as needed 220 MG - Active Vitamin D2 50,000 unit capsule take 1 capsule by oral route every week - Active MiralaxBisacodylMagCit Colon Prep Use as directed - No Longer Active Procedures Procedure Date Colonoscopy Flex; Dx (sep Pro) 14 Advance Directives Directive Yes / No Effective Date File Name No Information Encounters Encounter Description Practice Location Reason(s) For Visit Diagnoses Date Provider Providers Copied on Encounter [facility], [address] [address], [place], [place], [id number], [place] tel:[phone] Lamonte [facility] Diverticulosis of colonColon Cancer ScreeningDivert iculosis Of Colon Luther Rivera. [address], [place], [place], [id number], [place]. tel:[phone] Referring Provider: Fiorella Sims MD R, [id number] [place] [address], [address]. tel:[phone] [facility], [address] [address], [place], [place], [id number], [place] tel:[phone] [facility] No Information 4 Lucero Loyd. [address], [place], [place], [address], [place]. tel:[phone] Referring Provider: Fi[place] Sim[place], [address] [facility], [place], [address]. tel:[phone] Family History Family Member Type Diagnosis Age At Onset Brother Problem (finding) Irritable bowel disease Mother Problem (finding) gallbladder disease Daughter Problem (finding) asthma Brother Problem (finding) Colon polyps Brother Problem (finding) Alive and well Son Problem (finding) Alive and well Mother Problem (finding) Thyroid disorder Father Problem (finding) malignant neoplasm of s kin Sister Problem (finding) Alive and well Payers Payer name Insurance type Covered democrat ID Patt wayne(s) [id number] Social History Type Description Quantity Date Captured Comments Alcohol Use Details Unknown Caffeine Use Details Unknown Tobacco Use Status No Information Smoking Status Former smoker Sex Female Vital Signs Date / Time: Height Weight BMI Pulse Rate Blood Pressure Temperature Respiratory Rate Body Surface Area Head Circumference Head Circ. Percentile Wt./Ángel. Percentile BMI percentile Pulse Ox Inhaled Ox 72.00 in 80.730 kg (178.00 lbs) 24.1 0 kg/m eter (2) 68 /min 126/54 mm[Hg] 0.00 F 16 /min 98 % 3:21 PM 0.00 in 0.000 kg (0.00 lbs) 24.1 0 kg/m eter (2) 57 /min 108/56 mm[Hg] 0.00 F 14 /min 97 % 3:46 PM 0.00 in 0.000 kg (0.00 lbs) 24.1 0 kg/m eter (2) 51 /min 114/64 mm[Hg] 0.00 F 14 /min 97 % Chief Complaint And Reason For Visit No Information Reason For Referral Reason For Referral No Information Plan Of Treatment Date Type Action Status No Information History Of Present Illness Encounter Date Complaint History Of Prese nt Illness No Information Functional Status Date Functional Assessmen t No Information Instructions Date Instruction Additional Infor jarvis Colon Cancer Prevention Related to Diverticulosis of colon Diverticulosis/Diverticulitis Re lated to Diverticulosis of colon High Fiber Diet Related to Diver ticulosis of colon Assessments Type Assessment Date assessment Diverticulosis of colon 014 Patient Care Teams Name Effective Dates (start - stop) Status Members No Information
[2022-06-21 17:36] LABS: Albumin* 4.5 g/dL (3.3-5.0); Chloride* 106 mmol/L (96-114); Potassium* 3.8 mmol/L (3.6-5.1); Sodium* 140 mmol/L (135-149)
[2022-06-21 17:39] LABS: Alanine Aminotransferase* 28 U/L (4-35); Alkaline Phosphatase* 69 U/L (40-150); Aspartate Amino Transferase* 29 U/L (12-35); Bilirubin Total* 0.6 mg/dL (0.1-1.5); Blood Urea Nitrogen* 18 mg/dL (7-30); Carbon Dioxide* 26 mmol/L (20-32); Creatinine* 0.7 mg/dL (0.5-1.5); Est. Creatinine Clearance* 61.27; Estimated Glomerular Filt Rate 94 ml/min; Glucose* 94 mg/dL (60-115); Total Protein* 7.7 g/dL (6.0-8.3)
[2022-06-21 17:42] LABS: C Reactive Protein* 0.7 mg/dL (0.5-1.0)
[2022-06-21 18:27] LABS: C.Difficile Negative (Negative); CDIFFEPI 027 PRESUMPTIVE NEGATIVE (Negative)
[2022-06-21 19:45] VITALS: BP 128/71; PULSE 71; RESP 16; TEMP 36.7
[2022-06-21 19:49] LABS: Erythrocyte SedimentationRate* 9 mm/hr (2-20)
== END 2022-06-21 19:47 | disposition home or self-care (01) ==
PROVIDERS: Emergency Provider Family Medicine; PCP Family Medicine
DX: K52.9 Noninfective gastroenteritis and colitis, unspecified (principal)
CPT/HCPCS: 36415; 74177; 80053; 85025; 85651; 86140; 87045; 87046; 87427; 87493; 96360; 96361; 99284; 99285; J7030; Q9967

== ENCOUNTER 2022-08-26 09:51 | Outpatient (CLI) | payer MEDICARE, SELFPAY ==
--- OUTSIDE RECORDS SUMMARY | 2022-08-26 09:53 | XMS_ITS | Continuity of Care Document ---
Author Name Unknown Organization [facility] Address [address] [place] [address] Phone Care Team Providers Care Multiskill Operator Name Role Phone Skkam Marissakasandra SMITH, Carmelita Unavailable Unavailab le Allergies, Adverse Reactions, Alerts Substance Reaction Status Criticality tolmetin RashRash Active No Information Medications Medication Instructions Dosage Effective Dates (start - stop) Status Comments atorvastatin 10 mg tablet take 1 tablet by oral route every evening 10 MG - Active fluticasone propionate 50 mcg/actuation nasal spray,suspension spray 1 - 2 spray by intranasal route every day in each nostril as needed 50-100 MCG - Active naproxen sodium 220 mg tablet take 2 tablet by oral route every 12 hours as needed 440 MG - Active valacyclovir 1 gram tablet take 1 tablet by oral route as needed - Active Vitamin D3 50 mcg (2,000 unit) tablet - Active vitamin B complex capsule - Active Multiple Vitamins tablet - Active Procedures Procedure Date Office/Outpatient Visit, New Routine Venipuncture Specimen Handling Urinalysis Nonauto W/O Scope Complete Cbc WAuto Diff Wbc Advance Directives Directive Yes / No Effective Date File Name No Information Encounters Encounter Description Practice Location Reason(s) For Visit Diagnoses Date Provider Providers Copied on Encounter [facility], [address], [place], [address], [place] tel:[phone] [facility], No Information [address], [place], [address], [place]. tel: [phone] Office/Outpa tient Visit, New [facility], [address], [place], [address], [place] tel:[phone] [facility], Raised antibody titerFatigueP ain in unspecified shoulderPain in unspecified knee [address] Amy Mae. [address], [place], [address], [place]. tel: [phone] Referring Provider: Carmelita Gar, [address], [place], [address]. tel:[phone] Family History Family Member Type Diagnosis Age At Onset No Information Payers Payer name Insurance type Covered alliance party ID annabel christinatre(s) [employer] Medicare Advantage CI [id number] Social History Type Description Quantity Date Captured Comments Sex Female Smoking Status No Information Chief Complaint And Reason For Visit No Information Reason For Referral Reason For Referral No Information Plan Of Treatment Date Type Action Status No Information History Of Present Illness Encounter Date Complaint History Of Prese nt Illness No Information Functional Status Date Functional Assessmen t No Information Instructions Date Instruction Additional Infor mation No Information Assessments Type Assessment Date No Information Patient Care Teams Name Effective Dates (start - stop) Status Members No Information
--- NOTE | 2022-08-26 10:15 | CRLHL7_ITS ---
For Patients: As a result of the Cures Act, medical imaging exams and procedure reports are released immediately into your electronic medical record. You may view this report before your referring provider. If you have questions, please contact your health care provider. BILATERAL SCREENING MAMMOGRAM WITH COMPUTER-AIDED DETECTION AND TOMOSYNTHESIS TECHNIQUE: CC and MLO views were obtained. These mammographic images have been obtained using full-field digital technique. These mammographic images were interpreted with the benefit of computer-aided detection. Breast Tomosynthesis was used in this interpretation. COMPARISON FILM: 08/19/21, 08/18/20, 08/10/19. FINDINGS: There are scattered areas of fibroglandular density IMPRESSION: There is no radiographic evidence for malignancy. ASSESSMENT: BI-RADS Category 1: Negative RECOMMENDATION: Routine screening mammogram in 1 year. A lay language report of this examination will be provided to the patient. Rahat Stein M.D. Diagnostic Radiologist [email or web address] Transcribed: 6:37 p.mKatharine vargas/Dictated by: Rahat Stein MD @ 08/26/2022 1:05:00 PM (Electronically Signed)
== END 2022-08-26 09:52 | disposition home or self-care (01) ==
LOC: MAMMO 09:51
PROVIDERS: PCP Family Medicine; Visit Provider Family Medicine
DX: Z12.31 Encounter for screening mammogram for malignant neoplasm of breast (principal)
CPT/HCPCS: 77063; 77067

== ENCOUNTER 2022-11-29 08:31 | Outpatient (CLI) | payer MEDICARE, SELFPAY | END 2022-11-29 08:32 | disposition home or self-care (01) | PROVIDERS: PCP Family Medicine; Visit Provider Family Medicine | DX: Z00.00 Encounter for general adult medical examination without abnormal findings (principal); R53.83 Other fatigue; E55.9 Vitamin D deficiency, unspecified; E78.5 Hyperlipidemia, unspecified; E53.8 Deficiency of other specified B group vitamins | CPT/HCPCS: 80053; 80061; 82306; 82607 ==

== ENCOUNTER 2022-12-22 14:50 | Outpatient (CLI) | payer MEDICARE, SELFPAY ==
--- NOTE | 2022-12-22 15:00 | CRLHL7_ITS ---
For Patients: As a result of the Century Cures Act, medical imaging exams and procedure reports are released immediately into your electronic medical record. You may view this report before your referring provider. If you have questions, please contact your health care provider. DXA BONE MINERAL DENSITY STUDY Reason for exam: Vitamin D deficiency. Screening. Current height (in): 72. Weight (lb): 200. Menopause age: 60. Ethnicity: White. 1. Have you had a previous hip or vertebral fracture? No. 2. Have you had any fractures during your adult life which did not result from significant trauma (e.g., auto accident)? No. 3. Did either of your parents have a hip fracture? Yes. 4. Do you smoke? Yes. 5. Have you ever taken Glucocorticoids? Yes. 6. Do you have rheumatoid arthritis? No. 7. Do you have secondary osteoporosis? No. 8. Do you drink 3 or more alcoholic drinks per day? No. 9. Are you being treated for osteoporosis? No. 10. Have you ever taken any of the following medications: Actonel, Evista, Fosamax, Miacalcin, Reclast, Boniva, Forteo, HRT (i.e., estrogen/hormone therapy), Protelos, Prolia, Vitamin D, Calcium, other ??? please specify. ANSWER: Yes, vitamin D. 11. Do you have any of the following medical conditions: Anorexia or bulimia, asthma or emphysema, end stage renal disease, hyperparathyroidism, any seizure disorders, cancer, inflammatory bowel diseases, hysterectomy, other ??? please specify. ANSWER: No. 12. What was your maximum height (inches)? 72. 13. Do you perform weight bearing exercise regularly? Yes. 14. Do you regularly consume dairy products? Yes. 15. Do you drink caffeinated beverages? Yes. If female: 16. At what age did your period start? 12. 17. Are you premenopausal? No. 18. How many full-term pregnancies have you had? 2. 19. Have you ever missed your period for more than 6 months in a row (not including or menopause)? No. TECHNIQUE: Bone mineral density study was performed using the [employer]. FINDINGS: The results of the study expressed as bone mineral density (BMD) are as follows: Lumbar spine L1, L3, L4: BMD: 1.081 g/cm2. T-score: 0.3. Z-score: 2.4 Neck Left: BMD: 0.787 g/cm2. T-score: -0.6. Z-score: 1.3 Right: BMD: 0.985 g/cm2. T-score: 1.2. Z-score: 3.0 Total Left: BMD: 0.968 g/cm2. T-score: 0.2. Z-score: 1.7 Right: BMD: 1.024 g/cm2. T-score: 0.7. Z-score: 2.2 IMPRESSION: Normal bone density. Rahat Stein M.D. Diagnostic Radiologist [email or web address] jj/Dictated by: Rahat Stein MD @ 12/23/2022 2:54:00 PM (Electronically Signed)
== END 2022-12-22 14:51 | disposition home or self-care (01) ==
LOC: RAD 14:51
PROVIDERS: PCP Family Medicine; Visit Provider Family Medicine
DX: Z13.820 Encounter for screening for osteoporosis (principal); E55.9 Vitamin D deficiency, unspecified
CPT/HCPCS: 77080

== ENCOUNTER 2023-08-26 06:03 | Emergency (ER) | payer MEDICARE, SELFPAY ==
[2023-08-26] VITALS (8 sets, daily range): BP systolic 131–142; BP diastolic 81–87; PULSE 56–64; RESP 18; TEMP 36; O2SAT 93–98; BMI 27.9
--- NOTE | 2023-08-26 06:16 | ED_ITS ---
HPI - Arrhythmia/Palpitations General Time Seen by Provider: 06:16 <Aby Carlton MD - Last Filed: 08/26/23 08:20> Date Seen: 08/26/23 <Aby Carlton MD - Last Filed: 08/26/23 08:20> Chief Complaint: Arrhythmia/Palpitations <Aby Carlton MD - Last Filed: 08/26/23 08:20> Stated Complaint: Irregular heartbeat, tired <Aby Carlton MD - Last Filed: 08/26/23 08:20> Time Seen by Provider: 08/26/23 06:09 <Aby Carlton MD - Last Filed: 08/26/23 08:20> Source: patient, RN notes reviewed and old records reviewed <Aby Carlton MD - Last Filed: 08/26/23 08:20> Mode of arrival: ambulatory <Aby Carlton MD - Last Filed: 08/26/23 08:20> Limitations: no limitations <Aby Carlton MD - Last Filed: 08/26/23 08:20> History of Present Illness HPI narrative: Jeanette is a very pleasant 73-year-old female with a history of SVT, normal cardiac echo in the past, fibromyalgia, rheumatoid arthritis, vitamin-D deficiency who comes to the emergency room for evaluation regarding heart palpitations. Patient notes that she had a day of working in the [employer] yesterday but did not notice any chest pain or unusual symptoms. This morning at 0300 hours she woke up and she was feeling and irregularity in her heartbeat. She states that she would have a few irregular beats and then it would go back to normal. In the past she has experienced SVT and this was usually sustain. Today's irregular heartbeat with the palpitations lasted for approximately 90 minutes and was associated with some difficulty breathing that Jeanette states is most likely nervousness, she has not had a cough cold or congestion. She did note that when she awoke she had some gastric reflux that seemed to initiate the palpitations. Since she has arrived she has not felt any unusual heartbeats. She denies any chest pain during the event or currently. She does note that she is very very fatigued. Patient has not had any recent travel, history of DVT, lower extremity edema or calf tenderness. <Aby Carlton MD - Last Filed: 08/26/23 08:20> Related Data Home Medications: Home Medications ?Medication ?Instructions ?Recorded ?Confirmed naproxen sodium 220 mg tablet 220 mg PO PRN 08/26/21 02/22/23 vitamin B complex 1 tab PO QDAY 11/20/21 02/22/23 Previous Rx's ?Medication ?Instructions ?Recorded cholecalciferol (vitamin D3) 50 50 mcg PO QDAY #100 caps 11/20/21 mcg (2,000 unit) capsule cyanocobalamin (vitamin B-12) 1,000 mcg PO QDAY #100 caps 11/20/21 1,000 mcg capsule fluticasone propionate 50 1 spray intranasal DAILY PRN 11/20/21 mcg/actuation nasal allergy symptoms #16 grams spray,suspension ketorolac 0.5 % eye drops (Acular) 1 drp ophthalmic (eye) QID #5 mL 07/28/22 rosuvastatin 5 mg tablet 5 mg PO DAILY #90 tabs 12/08/22 <Aby Carlton MD - Last Filed: 08/26/23 08:20> Allergies/Adverse Reactions: Allergies Allergy/AdvReac Type Severity Reaction Status Date / Time nitrofurantoin Allergy Intermediate Dizziness Verified 02/22/23 10:59 [From Macrobid] tolmetin Allergy Intermediate Hives Verified 02/22/23 10:59 aspirin AdvReac Intermediate Abdominal Verified 02/22/23 10:59 Pain <Aby Carlton MD - Last Filed: 08/26/23 08:20> Review of Systems Status of ROS: Reports: 10 or more systems reviewed and unremarkable except as noted in History and below <Aby Carlton MD - Last Filed: 08/26/23 08:20> Const: Denies: fever or chills <Aby Carlton MD - Last Filed: 08/26/23 08:20> Eyes: Denies: change in vision <Aby Carlton MD - Last Filed: 08/26/23 08:20> ENMT: Denies: throat pain, neck pain, throat swelling or nasal congestion <Aby Carlton MD - Last Filed: 08/26/23 08:20> Cardio: Reports: palpitations; Denies: chest pain, edema, swelling of feet/ankles or shortness of breath with exertion <Aby Carlton MD - Last Filed: 08/26/23 08:20> Resp: Denies: shortness of breath or cough <Aby Carlton MD - Last Filed: 08/26/23 08:20> GI: Denies: abdominal pain, nausea or vomiting <Aby Carlton MD - Last Filed: 08/26/23 08:20> Musculo: Denies: neck pain <Aby Carlton MD - Last Filed: 08/26/23 08:20> Allergy/Immuno: Denies: throat swelling <Aby Carlton MD - Last Filed: 08/26/23 08:20> [facility] Medical History: Medical History Adverse effect of nitrofurantoin ?T37.8X5A - Adverse effect of other specified systemic anti-infectives and antiparasitics, initial encounter (ICD-10) Dysuria ?R30.0 - Dysuria (ICD-10) Abdominal discomfort ?R10.9 - Unspecified abdominal pain (ICD-10) Burt's neuroma of right foot ?G57.61 - Lesion of plantar nerve, right lower limb (ICD-10) Vitamin D deficiency ?E55.9 - Vitamin D deficiency, unspecified (ICD-10) Ventricular premature beats (2018) ?I49.3 - Ventricular premature depolarization (ICD-10) Tinnitus ?H93.19 - Tinnitus, unspecified ear (ICD-10) 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 ?B00.89 - Other herpesviral infection (ICD-10) Mild sleep apnea (07/2018) ?G47.30 - Sleep apnea, unspecified (ICD-10) Low vitamin B12 level ?E53.8 - Deficiency of other specified B group vitamins (ICD-10) History of supraventricular tachycardia ?Z86.79 - Personal history of other diseases of the circulatory system (ICD- 10) History of rheumatoid arthritis ?Z87.39 - Personal history of other diseases of the musculoskeletal system and connective tissue (ICD-10) History of fibromyalgia ?Z87.39 - Personal history of other diseases of the musculoskeletal system and connective tissue (ICD-10) History of depression ?Z86.59 - Personal history of other mental and behavioral disorders (ICD-10) Dyslipidemia ?E78.5 - Hyperlipidemia, unspecified (ICD-10) <Aby Carlton MD - Last Filed: 08/26/23 08:20> Surgical History: Surgical History H/O eye surgery (2019) ?Z98.890 - Other specified postprocedural states (ICD-10) Normal colonoscopy (2013) History of vaginal delivery History of right cataract extraction (06/2020) ?Z98.41 - Cataract extraction status, right eye (ICD-10) History of arthroscopy of right knee (1983) ?Z98.890 - Other specified postprocedural states (ICD-10) History of arthroscopy of right knee (1977) ?Z98.890 - Other specified postprocedural states (ICD-10) <Aby Carlton MD - Last Filed: 08/26/23 08:20> Family History: Family History Brother Cardiac arrhythmia Lupus erythematosus H/O angioplasty, Onset Age: 45 Mother Alzheimers disease, Onset Age: 75 Stroke, Onset Age: 80 Father Basal cell carcinoma CHF (congestive heart failure), Onset Age: 86 Cardiac arrhythmia, Onset Age: 65 Maternal Grandmother Breast cancer, Onset Age: 40 Other Parkinson's disease <Aby Carlton MD - Last Filed: 08/26/23 08:20> Social History: Social History Narrative: , 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, 2 kids non-smoker- quit age 32, 6 pack years social drinker- 6/week exercises 3-4 times per week- 50N silver sneakers, gardening health care directive on file- health care directive completed on 06/05/19, reviewed and sent for scanning to medical record on 11/21/20 What is your current living situation?: I presently have a place to live In the past 12 months, utilities in danger of being shut off: no In past 12 months, lack of transportation kept you from medical appts, meetings, work, or getting things needed for daily living: no In the past 12 mos, have been you worried that your food would run out before you had money to buy more?: never true In the past 12 mos, the food you bought just didn't last and you didn't have money to buy more?: never true Smoking Status: Former smoker Do you use any of these nicotine containing products: None Second hand tobacco smoke exposure: No How often do you have a drink containing alcohol: 2-3 times a week How many standard drinks containing alcohol do you have on a typical day: 1 or 2 How often do you have six or more drinks on one occasion: Never AUDIT-C Alcohol total score: 3 Non-prescribed substance use: denies use How often does anyone, including family, friends and others, physically hurt you : never How often does anyone, including family, friends and others, insult or talk down to you: never How often does anyone, including family, friends and others, threaten you with harm: never How often does anyone, including family, friends and others, scream or curse at you: never Little interest or pleasure in doing things: not at all Feeling down, depressed, or hopeless: not at all service: No <Aby Carlton MD - Last Filed: 08/26/23 08:20> Exam Narrative: Exam Narrative: Jeanette is alert and oriented very well-spoken woman in no acute distress. Exter nal ears eyes nose clear. Mentation and speech is normal. Heart with regular rate and rhythm without murmur or rub. Lungs are clear bilaterally. Abdomen is soft nontender without pulsating mass. Lower extremities without edema calf tenderness. Pedal pulses intact symmetrical and strong. Able to move all extremities. <Aby Carlton MD - Last Filed: 08/26/23 08:20> Const: Vital Signs, click to edit/add: Vital Signs - 24 hr 08/26/23 06:08 08/26/23 07:22 08/26/23 07:34 Temperature 96.8 F L Pulse Rate 58 L 63 Pulse Rate [Pulse Oximeter] 64 Respiratory Rate 18 Blood Pressure Blood Pressure [Le ft Upper Arm] 142/87 H Pulse Oximetry 97 96 96 Oxygen Delivery Me thod Room Air 08/26/23 07:36 08/26/23 07:45 08/26/23 08:00 Temperature Pulse Rate 59 L 59 L 56 L Pulse Rate [Pulse Oximeter] Respiratory Rate Blood Pressure 138/86 Blood Pressure [Le ft Upper Arm] Pulse Oximetry 98 94 94 Oxygen Delivery Me thod 08/26/23 08:01 08/26/23 08:15 Temperature Pulse Rate 56 L 57 L Pulse Rate [Pulse Oximeter] Respiratory Rate Blood Pressure 131/81 Blood Pressure [Le ft Upper Arm] Pulse Oximetry 93 94 Oxygen Delivery Me thod <Aby Carlton MD - Last Filed: 08/26/23 08:20> Vital Signs, click to edit/add: Vital Signs - 24 hr 08/26/23 06:08 08/26/23 07:22 08/26/23 07:34 Temperature 96.8 F L Pulse Rate 58 L 63 Pulse Rate [Pulse Oximeter] 64 Respiratory Rate 18 Blood Pressure Blood Pressure [Le ft Upper Arm] 142/87 H Pulse Oximetry 97 96 96 Oxygen Delivery Me thod Room Air 08/26/23 07:36 08/26/23 07:45 08/26/23 08:00 Temperature Pulse Rate 59 L 59 L 56 L Pulse Rate [Pulse Oximeter] Respiratory Rate Blood Pressure 138/86 Blood Pressure [Le ft Upper Arm] Pulse Oximetry 98 94 94 Oxygen Delivery Me thod 08/26/23 08:01 08/26/23 08:15 Temperature Pulse Rate 56 L 57 L Pulse Rate [Pulse Oximeter] Respiratory Rate Blood Pressure 131/81 Blood Pressure [Le ft Upper Arm] Pulse Oximetry 93 94 Oxygen Delivery Me thod <Rahat Bermudez MD - Last Filed: 08/26/23 09:22> Documenting provider has reviewed patient's vital signs: yes <Aby Carlton MD - Last Filed: 08/26/23 08:20> Course Course ED Course: Differential diagnosis includes but is not limited to acute coronary syndrome, arrhythmia, PE, pneumothorax. An IV will be placed and blood drawn to check for CBC, comprehensive panel, CE troponin, magnesium, vitamin D as she does have deficiency, EKG D-dimer and chest x-ray. Patient appears stable at this time. <Aby Carlton MD - Last Filed: 08/26/23 08:20> Reevaluation(s) Reevaluation #1: Patient noted to be resting comfortably. No recurrence of symptoms. Have informed her that her initial troponin is negative. We will recheck troponin at 0820 hours. This would be 5 hours after the onset of symptoms at 0300 hours. <Aby Carlton MD - Last Filed: 08/26/23 08:20> Vital Signs Vital signs: Initial Vital Signs Temperature 96.8 F L 08/26/23 06:08 Temperature Source Temporal Artery Scan 08/26/23 06:08 Pulse Rate 64 08/26/23 06:08 Respiratory Rate 18 08/26/23 06:08 Blood Pressure 142/87 H 08/26/23 06:08 Blood Pressure Mean 105 08/26/23 06:08 Blood Pressure Position Supine 08/26/23 06:08 Pulse Oximetry 97 08/26/23 06:08 Oxygen Delivery Method Room Air 08/26/23 06:08 Vital Signs Temperature 96.8 F L 08/26/23 06:08 Pulse Rate 64 08/26/23 06:08 Respiratory Rate 18 08/26/23 06:08 Blood Pressure 142/87 H 08/26/23 06:08 Pulse Oximetry 97 08/26/23 06:08 Oxygen Delivery Method Room Air 08/26/23 06:08 Temperature 96.8 F L 08/26/23 06:08 Pulse Rate 57 L 08/26/23 08:15 Respiratory Rate 18 08/26/23 06:08 Blood Pressure 131/81 08/26/23 08:01 Pulse Oximetry 94 08/26/23 08:15 Oxygen Delivery Method Room Air 08/26/23 06:08 <Aby Carlton MD - Last Filed: 08/26/23 08:20> Initial Vital Signs Temperature 96.8 F L 08/26/23 06:08 Temperature Source Temporal Artery Scan 08/26/23 06:08 Pulse Rate 64 08/26/23 06:08 Respiratory Rate 18 08/26/23 06:08 Blood Pressure 142/87 H 08/26/23 06:08 Blood Pressure Mean 105 08/26/23 06:08 Blood Pressure Position Supine 08/26/23 06:08 Pulse Oximetry 97 08/26/23 06:08 Oxygen Delivery Method Room Air 08/26/23 06:08 Vital Signs Temperature 96.8 F L 08/26/23 06:08 Pulse Rate 64 08/26/23 06:08 Respiratory Rate 18 08/26/23 06:08 Blood Pressure 142/87 H 08/26/23 06:08 Pulse Oximetry 97 08/26/23 06:08 Oxygen Delivery Method Room Air 08/26/23 06:08 Temperature 96.8 F L 08/26/23 06:08 Pulse Rate 57 L 08/26/23 08:15 Respiratory Rate 18 08/26/23 06:08 Blood Pressure 131/81 08/26/23 08:01 Pulse Oximetry 94 08/26/23 08:15 Oxygen Delivery Method Room Air 08/26/23 06:08 <Rahat Bermudez MD - Last Filed: 08/26/23 09:22> MDM - Arrhythmia/Palpitations MDM Narrative Medical decision making narrative: 1. Palpitations-no arrhythmia noted on EKG and patient was asymptomatic since her arrival. Patient does note some reflux at the beginning of this event at home and I am wondering if this is some irritation and possibly some esophageal spasm. 2. Abnormal EKG-T-wave inversions and flattening noted in the inferior lateral leads. However initial troponin is negative with 2nd troponin pending at 0820. Patient has had an echocardiogram but I do not note an EKG in her chart for comparison. Recommend follow-up at her primary MD if this continues for a ZIO patch or other heart monitor. 3. History of vitamin-D [id number] pending. 4. Disposition-this case was signed out to my partner for viewing of 2nd EKG, checking of 2nd troponin and disposition. <Aby Carlton MD - Last Filed: 08/26/23 08:20> 1. Palpitations-no arrhythmia noted on EKG and patient was asymptomatic since her arrival. Patient does note some reflux at the beginning of this event at home and I am wondering if this is some irritation and possibly some esophageal spasm. 2. Abnormal EKG-T-wave inversions and flattening noted in the inferior lateral leads. However initial troponin is negative with 2nd troponin pending at 0820. Patient has had an echocardiogram but I do not note an EKG in her chart for comparison. Recommend follow-up at her primary MD if this continues for a ZIO patch or other heart monitor. 3. History of vitamin-D [id number] pending. 4. Disposition-this case was signed out to my partner for viewing of 2nd EKG, checking of 2nd troponin and disposition. Lraa -- received this . Just on handoff at change of shift. Records reviewed. Noting unchanged EKG including prior from 08/08/2021. Repeat troponin is 0s. No further events and she feels well. Anticipating departure from the emergency department. Vitamin D level results at 37; low normal See patient discharge plan for further recommendations <Rahat Bermudez MD - Last Filed: 08/26/23 09:22> Medical Records Attestation: I reviewed the patient's medical records. <Aby Carlton MD - Last Filed: 08/26/23 08:20> Lab Data Attestation: I reviewed the patient's lab results. <Aby Carlton MD - Last Filed: 08/26/23 08:20> Labs: Lab Results 08/26/23 08/26/23 08/26/23 Range/Units 06:20 06:38 07:30 WBC 4.93 (4.50-11.00) K/uL RBC 4.44 (4.00-5.20) m/uL Hgb 14.2 (12.0-16.0) gm/dL Hct 42.9 (33.0-51.0) % MCV 97 (80-100) fL MCH 32 (26-34) pg MCHC 33 (32-36) gm/dL RDW Coeff of Roopa 12.3 (11.5-15.5) % Plt Count 207 (140-440) K/uL Neut % (Auto) 38.8 L (42.0-72.0) % Lymph % (Auto) 49.1 H (20-44) % [place] % (Auto) 9.1 (0.0-11.0) % Eos % (Auto) 2.4 (0.0-7.0) % Baso % (Auto) 0.6 (0.0-3.0) % Neut # (Auto) 1.90 (1.7-7.0) K/uL Lymph # (Auto) 2.40 (0.90-2.90) K/uL [place] # (Auto) 0.40 (0.00-0.90) K/UL Eos # (Auto) 0.12 (0.00-0.50) K/uL Baso # (Auto) 0.03 (0.00-0.30) K/uL Abs Immat Gran (auto) 0.00 (0.00-0.30) K/uL Imm/Tot Granulo (auto) 0.0 % D-Dimer Quant (PE/DVT) 0.33 (0.00-0.50) ug/ml Sodium 140 (135-149) mmol/L Potassium 3.7 (3.6-5.1) mmol/L Chloride 108 (96-114) mmol/L Carbon Dioxide 26 (20-32) mmol/L Anion Gap 6 L (7-15) mEq/L BUN 25 (7-30) mg/dL Creatinine 0.8 (0.5-1.5) mg/dL Estimated Creat Clear 57.67 Estimated GFR 79 ml/min Glucose 101 (60-115) mg/dL Calcium 9.2 (8.4-10.6) mg/dL Magnesium 2.2 (1.5-2.6) mg/dL Total Bilirubin 0.4 (0.1-1.5) mg/dL AST 36 H (12-35) U/L ALT 30 (4-35) U/L Alkaline Phosphatase 76 (40-150) U/L C-Reactive Protein < 0.5 L (0.5-1.0) mg/dL Total Protein 7.1 (6.0-8.3) g/dL Albumin 4.4 (3.3-5.0) g/dL 25-OH Vitamin D Total 37 (30-80) ng/mL Urine Color Yellow (Yellow) Urine Appearance Clear (Clear) Urine pH 5.5 (5.0-8.5) Ur Specific [place] >= 1.030 (1.000-1.030) Urine Protein Negative (Negative) Urine Glucose (UA) Negative (Negative) Urine Ketones Negative (Negative) Urine Blood Negative (Negative) Urine Nitrite Negative (Negative) Urine Bilirubin 1+ A (Negative) Urine Urobilinogen 0.2 (0.2-1.0) Ur Leukocyte Esterase Negative (Negative) Urine RBC 0-2 (0-2) Urine WBC 0-2 (0-5) Ur Squamous Epith Cells Few (None-Few) Urine Bacteria Few A (None) POC Troponin I 0.00 L (0.01-0.04) ng/ml 08/26/23 Range/Units 08:20 WBC (4.50-11.00) K/uL RBC (4.00-5.20) m/uL Hgb (12.0-16.0) gm/dL Hct (33.0-51.0) % MCV (80-100) fL MCH (26-34) pg MCHC (32-36) gm/dL RDW Coeff of Roopa (11.5-15.5) % Plt Count (140-440) K/uL Neut % (Auto) (42.0-72.0) % Lymph % (Auto) (20-44) % [place] % (Auto) (0.0-11.0) % Eos % (Auto) (0.0-7.0) % Baso % (Auto) (0.0-3.0) % Neut # (Auto) (1.7-7.0) K/uL Lymph # (Auto) (0.90-2.90) K/uL [place] # (Auto) (0.00-0.90) K/UL Eos # (Auto) (0.00-0.50) K/uL Baso # (Auto) (0.00-0.30) K/uL Abs Immat Gran (auto) (0.00-0.30) K/uL Imm/Tot Granulo (auto) % D-Dimer Quant (PE/DVT) (0.00-0.50) ug/ml Sodium (135-149) mmol/L Potassium (3.6-5.1) mmol/L Chloride (96-114) mmol/L Carbon Dioxide (20-32) mmol/L Anion Gap (7-15) mEq/L BUN (7-30) mg/dL Creatinine (0.5-1.5) mg/dL Estimated Creat Clear Estimated GFR ml/min Glucose (60-115) mg/dL Calcium (8.4-10.6) mg/dL Magnesium (1.5-2.6) mg/dL Total Bilirubin (0.1-1.5) mg/dL AST (12-35) U/L ALT (4-35) U/L Alkaline Phosphatase (40-150) U/L C-Reactive Protein (0.5-1.0) mg/dL Total Protein (6.0-8.3) g/dL Albumin (3.3-5.0) g/dL 25-OH Vitamin D Total (30-80) ng/mL Urine Color (Yellow) Urine Appearance (Clear) Urine pH (5.0-8.5) Ur Specific [place] (1.000-1.030) Urine Protein (Negative) Urine Glucose (UA) (Negative) Urine Ketones (Negative) Urine Blood (Negative) Urine Nitrite (Negative) Urine Bilirubin (Negative) Urine Urobilinogen (0.2-1.0) Ur Leukocyte Esterase (Negative) Urine RBC (0-2) Urine WBC (0-5) Ur Squamous Epith Cells (None-Few) Urine Bacteria (None) POC Troponin I 0.00 L (0.01-0.04) ng/ml <Aby Carlton MD - Last Filed: 08/26/23 08:20> Lab Results 08/26/23 08/26/23 08/26/23 Range/Units 06:20 06:38 07:30 WBC 4.93 (4.50-11.00) K/uL RBC 4.44 (4.00-5.20) m/uL Hgb 14.2 (12.0-16.0) gm/dL Hct 42.9 (33.0-51.0) % MCV 97 (80-100) fL MCH 32 (26-34) pg MCHC 33 (32-36) gm/dL RDW Coeff of Roopa 12.3 (11.5-15.5) % Plt Count 207 (140-440) K/uL Neut % (Auto) 38.8 L (42.0-72.0) % Lymph % (Auto) 49.1 H (20-44) % [place] % (Auto) 9.1 (0.0-11.0) % Eos % (Auto) 2.4 (0.0-7.0) % Baso % (Auto) 0.6 (0.0-3.0) % Neut # (Auto) 1.90 (1.7-7.0) K/uL Lymph # (Auto) 2.40 (0.90-2.90) K/uL [place] # (Auto) 0.40 (0.00-0.90) K/UL Eos # (Auto) 0.12 (0.00-0.50) K/uL Baso # (Auto) 0.03 (0.00-0.30) K/uL Abs Immat Gran (auto) 0.00 (0.00-0.30) K/uL Imm/Tot Granulo (auto) 0.0 % D-Dimer Quant (PE/DVT) 0.33 (0.00-0.50) ug/ml Sodium 140 (135-149) mmol/L Potassium 3.7 (3.6-5.1) mmol/L Chloride 108 (96-114) mmol/L Carbon Dioxide 26 (20-32) mmol/L Anion Gap 6 L (7-15) mEq/L BUN 25 (7-30) mg/dL Creatinine 0.8 (0.5-1.5) mg/dL Estimated Creat Clear 57.67 Estimated GFR 79 ml/min Glucose 101 (60-115) mg/dL Calcium 9.2 (8.4-10.6) mg/dL Magnesium 2.2 (1.5-2.6) mg/dL Total Bilirubin 0.4 (0.1-1.5) mg/dL AST 36 H (12-35) U/L ALT 30 (4-35) U/L Alkaline Phosphatase 76 (40-150) U/L C-Reactive Protein < 0.5 L (0.5-1.0) mg/dL Total Protein 7.1 (6.0-8.3) g/dL Albumin 4.4 (3.3-5.0) g/dL 25-OH Vitamin D Total 37 (30-80) ng/mL Urine Color Yellow (Yellow) Urine Appearance Clear (Clear) Urine pH 5.5 (5.0-8.5) Ur Specific [place] >= 1.030 (1.000-1.030) Urine Protein Negative (Negative) Urine Glucose (UA) Negative (Negative) Urine Ketones Negative (Negative) Urine Blood Negative (Negative) Urine Nitrite Negative (Negative) Urine Bilirubin 1+ A (Negative) Urine Urobilinogen 0.2 (0.2-1.0) Ur Leukocyte Esterase Negative (Negative) Urine RBC 0-2 (0-2) Urine WBC 0-2 (0-5) Ur Squamous Epith Cells Few (None-Few) Urine Bacteria Few A (None) POC Troponin I 0.00 L (0.01-0.04) ng/ml 08/26/23 Range/Units 08:20 WBC (4.50-11.00) K/uL RBC (4.00-5.20) m/uL Hgb (12.0-16.0) gm/dL Hct (33.0-51.0) % MCV (80-100) fL MCH (26-34) pg MCHC (32-36) gm/dL RDW Coeff of Roopa (11.5-15.5) % Plt Count (140-440) K/uL Neut % (Auto) (42.0-72.0) % Lymph % (Auto) (20-44) % [place] % (Auto) (0.0-11.0) % Eos % (Auto) (0.0-7.0) % Baso % (Auto) (0.0-3.0) % Neut # (Auto) (1.7-7.0) K/uL Lymph # (Auto) (0.90-2.90) K/uL [place] # (Auto) (0.00-0.90) K/UL Eos # (Auto) (0.00-0.50) K/uL Baso # (Auto) (0.00-0.30) K/uL Abs Immat Gran (auto) (0.00-0.30) K/uL Imm/Tot Granulo (auto) % D-Dimer Quant (PE/DVT) (0.00-0.50) ug/ml Sodium (135-149) mmol/L Potassium (3.6-5.1) mmol/L Chloride (96-114) mmol/L Carbon Dioxide (20-32) mmol/L Anion Gap (7-15) mEq/L BUN (7-30) mg/dL Creatinine (0.5-1.5) mg/dL Estimated Creat Clear Estimated GFR ml/min Glucose (60-115) mg/dL Calcium (8.4-10.6) mg/dL Magnesium (1.5-2.6) mg/dL Total Bilirubin (0.1-1.5) mg/dL AST (12-35) U/L ALT (4-35) U/L Alkaline Phosphatase (40-150) U/L C-Reactive Protein (0.5-1.0) mg/dL Total Protein (6.0-8.3) g/dL Albumin (3.3-5.0) g/dL 25-OH Vitamin D Total (30-80) ng/mL Urine Color (Yellow) Urine Appearance (Clear) Urine pH (5.0-8.5) Ur Specific [place] (1.000-1.030) Urine Protein (Negative) Urine Glucose (UA) (Negative) Urine Ketones (Negative) Urine Blood (Negative) Urine Nitrite (Negative) Urine Bilirubin (Negative) Urine Urobilinogen (0.2-1.0) Ur Leukocyte Esterase (Negative) Urine RBC (0-2) Urine WBC (0-5) Ur Squamous Epith Cells (None-Few) Urine Bacteria (None) POC Troponin I 0.00 L (0.01-0.04) ng/ml <Rahat Bermudez MD - Last Filed: 08/26/23 09:22> Imaging Data Chest x-ray: Attestation: I have reviewed the pertinent imaging results. <Aby Carlton MD - Last Filed: 08/26/23 08:20> My impression: No widened mediastinum. No infiltrates. <Aby Carlton MD - Last Filed: 08/26/23 08:20> Radiologist's impression: Lung volumes are moderate. No focal or diffuse opacities. No pleural effusion. No pneumothorax. Heart size is normal. IMPRESSION: Normal chest radiograph. <Aby Carlton MD - Last Filed: 08/26/23 08:20> ECG Data Attestation: I personally reviewed and interpreted this ECG as follows: <Aby Carlton MD - Last Filed: 08/26/23 08:20> ECG interpretation date: 08/26/23 <Aby Carlton MD - Last Filed: 08/26/23 08:20> Interpretation: EKG by my read shows sinus rhythm at a rate of 63. Patient is noted to have very subtle T-wave inversion in lead 3 V3 V4 and flattening of the T-waves in V5 V6 QT and OK intervals within normal limits. <Aby Carlton MD - Last Filed: 08/26/23 08:20> Discharge Plan Discharge Clinical Impression: Palpitations <Aby Carlton MD - Last Filed: 08/26/23 08:20> Patient Disposition: Home, Self-Care <Aby Carlton MD - Last Filed: 08/26/23 08:20> Condition: Improved <Aby Carlton MD - Last Filed: 08/26/23 08:20> Instructions: Heart Palpitations (ED) <Aby Carlton MD - Last Filed: 08/26/23 08:20> Additional Instructions: Rest, consider Pepcid or omeprazole to control reflux. Return to the emergency room for worsening symptoms. <Aby Carlton MD - Last Filed: 08/26/23 08:20> Prescriptions: No Action vitamin B complex Tablet 1 tab PO QDAY fluticasone propionate 50 mcg/actuation spray,suspension 1 spray intranasal DAILY PRN (Reason: allergy symptoms) Qty: 16 5RF cholecalciferol (vitamin D3) 50 mcg (2,000 unit) capsule 50 mcg PO QDAY Qty: 100 4RF cyanocobalamin (vitamin B-12) 1,000 mcg capsule 1,000 mcg PO QDAY Qty: 100 4RF naproxen sodium 220 mg tablet 220 mg PO PRN ketorolac [Acular] 0.5 % drops 1 drp ophthalmic (eye) QID Qty: 5 0RF rosuvastatin 5 mg tablet 5 mg PO DAILY Qty: 90 2RF <Aby Carlton MD - Last Filed: 08/26/23 08:20> Follow Up/Referrals: Kathie Flores MD [Primary Care Provider] - <Aby Carlton MD - Last Filed: 08/26/23 08:20> Stand Alone Forms: SeeMeealth Info Instructions <Aby Carlton MD - Last Filed: 08/26/23 08:20>
--- NOTE | 2023-08-26 06:24 | CRLHL7_ITS ---
For Patients: As a result of the Cures Act, medical imaging exams and procedure reports are released immediately into your electronic medical record. You may view this report before your referring provider. If you have questions, please contact your health care provider. INDICATION: Palpitations TECHNIQUE: 1 view chest radiograph COMPARISON: None. FINDINGS: Lung volumes are moderate. No focal or diffuse opacities. No pleural effusion. No pneumothorax. Heart size is normal. IMPRESSION: Normal chest radiograph. Dictated by Josiane Ventura MD @ 08/26/2023 7:02:16 AM (Electronically Signed)
--- OUTSIDE RECORDS SUMMARY | 2023-08-26 06:30 | XMS_ITS | Continuity of Care Document ---
Author Organization [facility] Address [address] [address] [place] [address] Phone Care Team Providers Care Hemstitching Machine Operator Name Role Phone Nicole Sloan MD Unavailable [...] Diagnoses Date Provider Providers Copied on Encounter [facility], [address] [address], [place], [place], [id number], [place] tel:[phone] Lamonte [facility] Diverticulosis of colonColon Cancer ScreeningDivert iculosis Of Colon 4 Luther Rivera. [address] [facility], [facility] [address], [place], [place], [address], [place]. tel:[phone] Referring Provider: Fiorella Sims MD R, [id number] [place] [address], [address]. tel:[phone] [facility], [address] [address], [place], [place], [address], [place] tel:[phone] [facility] No Information 4 Lucero Loyd. [address] [facility], [place], [place], [address], [place]. tel:[phone] Referring Provider: Fiorella Sims MD R, [address] [facility], [place], [address]. tel:[phone] Family History Family Member Type Diagnosis Age [...] well Payers Payer name Insurance type Covered constitution party ID Patt wayne(s) [employer] [id number] Social History Type Description Quantity Date Captured [...] For Referral Reason For Referral No Information History Of Present Illness Encounter [...]
--- OUTSIDE RECORDS SUMMARY | 2023-08-26 06:30 | XMS_ITS | Continuity of Care Document ---
Author Organization [facility] Address [address] [place] [address] Phone Care Team Providers Care In Store Demonstrator Name Role Phone Amy Ann DOCarmelita Unavailable Unavailab le Allergies, Adverse Reactions, Alerts [...] Encounter [facility], [address], [place], [address], [place] tel:[phone] [facility], No Information Amy Mae. [address], [address], [place], [address], [place]. tel: [phone] Office/Outpa tient Visit, New [facility], [address], [place], [address], [place] tel:[phone] [facility], Raised antibody titerFatigueP ain in unspecified shoulderPain in unspecified knee [address] Amy Mae[address], [address], [place], [address], [place]. tel: [phone] Referring Provider: Carmelita Gar, [address], [place], [address]. tel:[phone] Family History Family Member Type Diagnosis Age At Onset No Information Payers Payer name Insurance type Covered libertarian ID Patt christinatre(s) [employer] Medicare Advantage CI [id number] Social History Type Description Quantity Date Captured [...]
--- OUTSIDE RECORDS SUMMARY | 2023-08-26 06:30 | XMS_ITS | Clinical Summary ---
Author Organization [facility] Address [place], [place] [address] Care Team Providers Care Agronomy Internship Name Role Phone Kathie Flores MD Primary Care Provider + Allergies Active Allergy Reactions Criticality Noted Date Comments Aspirin GI Upset 01/16/2020 abd pain Tolmetin Rash 06/14/2006 tolectin Medications Medication Sig Dispensed Refills Start Date End Date Status fluticasone (50 mcg per actuation) nasal solution (FLONASE)Indications :Environmental allergies Inhale 1 [place] into both nostrils once daily. 1 Bottle 3 02/18/2014 Active ergocalciferol (VITAMIN D) 50,000 unit capsuleIndications:V itamin D deficiency Take 1 capsule by mouth once weekly. 12 capsule 3 02/19/2015 Active atorvastatin (LIPITOR) 10 mg tablet Take 1 tablet by mouth once daily. 0 12/02/2017 Active naproxen (NAPROSYN) 500 mg tablet TAKE ONE TABLET BY MOUTH TWICE A DAY WITH FOOD FOR 10 DAYS 0 01/20/2018 Active cyanocobalamin (VITAMIN B-12) 1,000 mcg tablet Take 1,000 mcg by mouth once daily. 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 Symptoms controlled with hormones-- control pills Fibromyalgia 05/27/2009 Hyperlipemia 05/27/2009 Routine health maintenance 05/27/2009 Overview: Physical,pap,breast exam,cholesterol 240, ldl 138,hdl, 69 Colon: 9.2003- normal BMD: 10.2006 normal density Resolved Problems Problem Noted Date Diagnosed Date Resolved Date Coronary atherosclerosis of unspecified type of vessel, [place] or graft 09/15/2009 12/29/2009 CVD (cardiovascular disease) 09/15/2009 12/29/2009 Adjustment disorder with mix ed anxiety and depressed mood 05/29/2008 02/05/2011 Adjustment disorder with depressed mood 02/05/2011 Encounters Date Type Department Care Team Description 08/17/2023 10:00 AM CDT Office Visit [address] [address] [facility] Individual Therapy 08/17/2023 Travel 07/13/2023 2:00 PM CDT Office Visit [address] [address] [facility] Individual Therapy 07/13/2023 Travel 06/15/2023 10:00 AM CDT Office Visit [address] [address] [facility] Individual Therapy; Trmt Plan 06/15/2023 Travel from Last 3 Months Immunizations Name Administration Dates Next Due Hepatitis A (Adult) 12/01/2006,05/12/2005 Influenza A (H1N1), Inactiva naldo (Age >=3 Years) 02/27/2009 Influenza Virus, Unspecified 01/20/2016 Influenza, IIV3 (Age >=3 years) 02/17/20 13,02/16/2012,11/26/2010,2009 Influenza, IIV4 12/30/2014 Td (Age >=7 Years) 04/09/2003 Tdap 02/16/2012 Zoster (Zostavax-ZVL, live) 03/14/2015 Family History Medical History Relation Name Comments Other Brother 1 Andrew chest pain; no ASCVD Cancer-colon Brother 2 Yuri polyps Asthma Daughter Pj Good Health Daughter Pj Heart Disease Father arrythmia Hypertension Father Other Father Parkinson's, st able brain tumor Stroke Maternal Grandfather Cancer-breast Maternal Grandmother Other Maternal Grandmother dementi a Heart Disease Mother afib Hyperlipidemia Mother Other Mother alzheimer's Thyroid Disease Mother Stroke Paternal Grandfather Heart Disease Paternal Grandmother Other Sister fibromyalgia Good Health Son Bear Relation Name Status Comments Brother 1 Andrew Alive Brother 2 Yuri Alive Daughter Pj Alive Father Alive Maternal Grandfather (Age 62) [place] Maternal Grandmother (Age 70's) dementia Mother complication of stroke Paternal Grandfather (Age 78) [place] Paternal Grandmother (Age 93) CH F Sister Alive Son Bear Alive Social History Tobacco Use Types Packs/Day Years Used Date Smoking Tobacco: Former Cigarettes Q uit: 02/28/1982 Smokeless Tobacco: Never Tobacco Cessation:Counseling Given: Yes Alcohol Use Standard Drinks/Week Comments Yes 0 (1 standard drink = 0.6 oz pur e alcohol) 0-1 a week PHQ-2 Answer Date Recorded PHQ-2 Score 0 01/03/2019 Social Connections Answer Date Recorded Frequency of Communication with Friends and Fami ly Not on file 04/12/2022 Sex and Gender Information Value Date Recorded Sex Assigned at Not on file Gender Identity Not on file Sexual Orientation Not on file Obstetrics History Para Term AB IAB SAB Ectopic Multiple Livin g Live Births 2 2 2 2 Date Outcome GA Total Labor Labor/2nd/3rd Weight Sex Type Anes PTL Marga A1 A5 Name Clin Term Term Comments Bedrest for the second Last Filed Vital Signs Vital Sign Reading Time Taken Comments Blood Pressure 136/80 01/17/2020 10:25 AM [employer] Pulse 58 01/17/2020 10:25 AM [employer] Temperature 36.3 ??C (97.4 ??F) 01/17/2020 8:33 AM CS T Respiratory Rate 18 01/17/2020 10:25 AM [employer] Oxygen Saturation 99% 01/17/2020 10:25 AM [employer] Inhaled Oxygen Concentration - - Weight 91.6 kg (202 lb) 01/16/2020 12:00 PM [employer] Height 182.9 cm (6') 01/16/2020 12:00 PM [employer] Body Mass Index 27.4 01/16/2020 12:00 PM [employer] Plan of Treatment Upcoming Encounters Date Type Department Care Team (Late st Contact Info) Description 09/21/2023 10:00 AM CDT Office Visit [address] [address] [facility] [address] [place] [address] 10/19/2023 10:00 AM CDT Office Visit [address] [address] [facility] [address] [place] [address] 11/17/2023 1:00 PM CDT Office Visit [address] [address] [facility] [address] [place] [address] 12/21/2023 10:00 AM CDT Office Visit [address] [address] [facility] [address] [place] [address] Health Maintenance Due Date Last Done Comments Hepatitis C screening for ag e 18-79 1970 Zoster (shingles) series for age 50+ (2 of 3) 05/09/2015 03/14/2015 Mammogram for age 45-75 02/28/2016 02/28/20 15, 03/12/2014, 02/22/2013, Additional history exists DEXA/DXA scan for age 65+ 2017 02/27/2015, Medicare Wellness for age 65+ 2017 Pneumococcal series for age 65+ (1 of 1 - PCV) 2017 BMI (ht and wt on same day) for age 18+ 01/25/2019 01/25/2018, 01/30/2016, 08/14/2015, Additional history exists Lipids for age 45-75 02/20/2020 02/19/2015, 02/18/2014, 02/16/2013, Additional history exists Depression screening for age 12+ 11/26/2021 11/26/2020, 01/02/2019, 11/23/2017, Additional history exists Tetanus booster 02/15/2022 02/16/2012, 04/09/2003 COVID-19 vaccine series (2022- season) 2023 12/16/2022, 11/24/2021, 12/25/2020, Additional history exists Influenza for age 65+ 10/30/2023 01/20/2016 , 12/30/2014, 02/16/2013, Additional history exists Colonoscopy through age 75 12/13/2023 12/12/2013, Tdap Completed 02/16/2012 Procedures Procedure Name Priority Date/Time Associated Diagnosis Comments XR DXA BONE DENSITY 2 SITES AXIAL Routine 02/27/2015 8:30 AM [employer] Post-menopausal XR MAMMO BILAT SCREEN FFDM (IA) Routine 02/27/2015 8:25 AM [employer] Breast cancer screening LIPID PANEL W REFLEX MEASURED LDL Routine 02/19/2015 9:42 AM [employer] Hyperlipidemia, unspecified hyperlipidemia SCAN-COLONOSCOPY 12/12/2013 3:00 PM CDT from Last 3 Months or Most Recently Relevant to Health Maintenance Results * XR DXA BONE DENSITY 2 SITES (02/27/2015 8:30 AM [employer]) Anatomical Region Laterality Modality Spine, HIPS, HIPL, HIPR Other 02/27/2015 8:30 AM [employer] Impressions 02/27/2015 4:26 PM [employer] IMPRESSION: 1. Normal bone mineral density of the lumbar spine. 2. Normal bone mineral density of the right and left femoral necks. RECOMMENDATIONS: ??Typical preventive recommendations include total daily calcium intake (diet and supplement) of 1500 mg, daily vitamin D intake of 400-800 IU, and regular weight-bearing exercise, in the appropriate clinical setting. Narrative 02/27/2015 4:26 PM [employer] BONE DENSITY (DEXA) ? 02/27/2015 8:30 AM HISTORY: ??Postmenopausal female with history of rheumatoid arthritis taking vitamin D. COMPARISON: 10/10/2009 and 12/06/2006. TECHNIQUE: ??The study was performed using DEXA in the AP lumbar spine and AP femur using a [employer] Discovery C. FINDINGS: Using DEXA, the results were reported according to T score. ?? The T score is the standard deviation from the peak bone mass in a normal young patient. ??A T score of 0 to -1.0 is normal. ??A T score of -1.0 to -2.5 correlates with osteopenia. ??A T score of less than -2.5 correlates with osteoporosis. ?? The total T-score from ??L1 to L4 ??is 0.4 compared with 0.8 in the previous study and 0.8 in the baseline study. ??There has been a -4.2% change in bone density since the previous study. ??This is a statistically significant change in bone density. ?? The T-score for the right femoral neck is 1.0. The bone mineral density of the right femoral neck is 0.963 g/cm2. The T-score for the left femoral neck is 0.6 compared with 0.6 in the previous study and 0.7 in the baseline study. The bone mineral density of the left femoral neck is 0.913 g/cm2. Procedure Note Alex Parker MD - 02/27/2015 BONE DENSITY (DEXA) 02/27/2015 8:30 AM HISTORY: Postmenopausal female with history of rheumatoid arthritis taking vitamin D. COMPARISON: 10/10/2009 and 12/06/2006. TECHNIQUE: The study was performed using DEXA in the AP lumbar spine and AP femur using a [employer] Discovery C. FINDINGS: Using DEXA, the results were reported according to T score. The T score is the standard deviation from the peak bone mass in a normal young patient. A T score of 0 to -1.0 is normal. A T score of -1.0 to -2.5 correlates with osteopenia. A T score of less than -2.5 correlates with osteoporosis. The total T-score from L1 to L4 is 0.4 compared with 0.8 in the previous study and 0.8 in the baseline study. There has been a -4.2% change in bone density since the previous study. This is a statistically significant change in bone density. The T-score for the right femoral neck is 1.0. The bone mineral density of the right femoral neck is 0.963 g/cm2. The T-score for the left femoral neck is 0.6 compared with 0.6 in the previous study and 0.7 in the baseline study. The bone mineral density of the left femoral neck is 0.913 g/cm2. IMPRESSION: IMPRESSION: 1. Normal bone mineral density of the lumbar spine. 2. Normal bone mineral density of the right and left femoral necks. RECOMMENDATIONS: Typical preventive recommendations include total daily calcium intake (diet and supplement) of 1500 mg, daily vitamin D intake of 400-800 IU, and regular weight-bearing exercise, in the appropriate clinical setting. Fiorella Sims MD DEXA * XR MAMMO BILAT SCREEN FFDM (02/27/2015 8:25 AM [employer]) Anatomical Region Laterality Modality BREASTS, Breast Left, Breast Right Bilateral Other 02/27/2015 8:25 AM [employer] Impressions 02/27/2015 9:42 AM [employer] IMPRESSION: BI-RADS CATEGORY: 1 - ??NEGATIVE. RECOMMENDED FOLLOW-UP: Annual Mammography. Exam results letter mailed to patient. Narrative 02/27/2015 9:42 AM [employer] SCREENING MAMMOGRAM, BILATERAL, DIGITAL w/CAD - 02/27/2015 8:25 AM. BREAST SYMPTOMS: No current breast complaints. COMPARISON: ??[facility] 03/12/14, SI 01/21/10 BREAST DENSITY: Heterogeneously dense, limiting mammographic sensitivity. COMMENTS: No findings of suspicion for malignancy. ? Procedure Note Unknown, Doctor - 02/27/2015 SCREENING MAMMOGRAM, BILATERAL, DIGITAL w/CAD - 02/27/2015 8:25 AM. BREAST SYMPTOMS: No current breast complaints. COMPARISON: [facility] 03/12/14, SI 01/21/10 BREAST DENSITY: Heterogeneously dense, limiting mammographic sensitivity. COMMENTS: No findings of suspicion for malignancy. IMPRESSION: IMPRESSION: BI-RADS CATEGORY: 1 - NEGATIVE. RECOMMENDED FOLLOW-UP: Annual Mammography. Exam results letter mailed to patient. Fiorella Sims MD MAMMO * (ABNORMAL) LIPID PANEL W REFLEX MEASURED LDL (02/19/2015 9:42 AM [employer]) CHOLESTEROL,TOTAL 261(H) 100 - 199 mg/dL 02/19/2015 1:43 PM [employer] CORPORATE REAL [employer]STATE [facility] TRIGLYCERIDES 144 <150 mg/dL 02/19/2015 1:43 PM DIRECTOR OF CORPORATE REAL ESTATE [facility] HDL CHOLESTEROL 70 >40 mg/dL 02/19/2015 1:43 PM DIRECTOR OF CORPORATE REAL ESTATE [facility] NON-HDL CHOLESTEROL 191(H) <145 mg/dl 02/19/2015 1:43 PM DIRECTOR OF CORPORATE REAL ESTATE [facility] CHOL/HDL RATIO 3.73 <4.50 02/19/2015 1:43 PM DIRECT[employer] OF [employer]PORATE REAL ESTATE [facility] LDL CHOLESTEROL 162(H) <=130 mg/dL 02/19/2015 1:43 PM DIRECTOR OF CORPORATE REAL ESTATE [facility] PATIENT STATUS FASTING 02/19/2015 1:43 PM DIRECTOR OF CORPORATE REAL ESTATE [facility] Blood specimen (specimen) BLOOD SPECIMEN / Unknown Venipuncture / Unknown 02/19/2015 9:42 AM [employer] 02/19/2015 9:42 AM [employer]STATE Fiorella Sims MD [facility] [address] [place] [address], [place] * SCAN-COLONOSCOPY (12/12/2013 3:00 PM CDT) Narrative Transcriptions Nicole Sloan MD - 12/12/2013 2:13 PM CDT [facility] [address] [facility] [address], [address], [place] [address] Patient Name: Jeanette Rios Gender: Female Exam Date: 12/12/2013 Visit Number: [id number] Age: 63 Years 3 Months Date of : 1950 Attending MD: Nicole Sloan MD Medical Record#: [id number] ----- Procedure: Colonoscopy Indications: Colorectal cancer screening Referring MD: Fiorella Sims MD Primary MD: Fiorella Sims MD Medications: Intra Procedure Medications: Fentanyl given 0.1 mg by IV Midazolam given 3 mg by IV Complications: No immediate complications Procedure: An examination of the heart and lungs was performed and found to be withinacceptable limits. The patient was therefore deemed a reasonablecandidate for endoscopy . The risks and benefits of the procedure were explained to the patient.After obtaining informed consent, the patient was sedated under mydirection and I passed the scope without difficulty via the rectum to the cecum. The appendiceal orificeand ic valve were identified. The scope was retroflexed during theexamination The quality of the prep was good (Miralax/Gatorade/2 tabletsBisacodyl/Magnesium Citrate). This was a complete examination throughout the entire colon. Findings: Diverticulosis. Location: - sigmoid. Description: mild. Size:medium. Quantity: few. No inflammation present. Impression: Diverticulosis of colon Plan Repeat colonoscopy in 10 years. If you have signs or symptoms of lower GI illness or a new diagnosis ofcolon cancer in an immediate family member, you should contact [facility]arra primary provider to discuss whether your next exam should berepeated sooner. We will attempt to contact you at appropriate intervals via U.S. mail. Wemay not be able to find you or contact you at that time, therefore youshould know that the responsibility for following our recommendation restswith you. If you don't hear from us at the time your procedure is due,please contact our office to schedule an appointment. If your contactinformation should change, please contact our office so that we can updateyour records. Electronically signed by: Nicole Sloan MD 12/12/2013 [facility] [phone] Nicole Sloan MD OTHER from Last 3 Months or Most Recently Relevant to Health Maintenance Advance Directives * Full Code (Latest Code Status on File) Date Activated Date Inactivated Comments 01/17/2020 8:14 AM 01/17/2020 1:18 PM Question Answer Comments Code Status Discussion: Not Discussed Care Teams Agronomy Internship Relationship Specialty Start Date End Date Kathie Flores MD [address] [place] [address] PCP - General Family Practice 12/16/17
[2023-08-26 07:06] LABS: Albumin* 4.4 g/dL (3.3-5.0); Chloride* 108 mmol/L (96-114); Sodium* 140 mmol/L (135-149)
[2023-08-26 07:07] LABS: Potassium* 3.7 mmol/L (3.6-5.1)
[2023-08-26 07:08] LABS: Creatinine* 0.8 mg/dL (0.5-1.5); Est. Creatinine Clearance* 57.67; Estimated Glomerular Filt Rate 79 ml/min
[2023-08-26 07:09] LABS: Alanine Aminotransferase* 30 U/L (4-35); Alkaline Phosphatase* 76 U/L (40-150); Anion Gap 6 mEq/L (7-15); Aspartate Amino Transferase* 36 U/L (12-35); Bilirubin Total* 0.4 mg/dL (0.1-1.5); Blood Urea Nitrogen* 25 mg/dL (7-30); Carbon Dioxide* 26 mmol/L (20-32); Total Protein* 7.1 g/dL (6.0-8.3)
[2023-08-26 07:10] LABS: Calcium* 9.2 mg/dL (8.4-10.6); Glucose* 101 mg/dL (60-115); Magnesium* 2.2 mg/dL (1.5-2.6)
[2023-08-26 07:11] LABS: D Dimer Quantitative* 0.33 ug/ml (0.00-0.50)
[2023-08-26 07:13] LABS: C Reactive Protein* < 0.5 mg/dL (0.5-1.0)
[2023-08-26 07:16] LABS: Basophils Absolute Auto 0.03 K/uL (0.00-0.30); Basophils Percent Auto 0.6 % (0.0-3.0); Eosinophils Absolute Auto 0.12 K/uL (0.00-0.50); Eosinophils Percent Auto 2.4 % (0.0-7.0); Hematocrit 42.9 % (33.0-51.0); Hemoglobin* 14.2 gm/dL (12.0-16.0); Lymphocytes Percent Auto 49.1 % (20-44); Mean Corpuscular HGB Conc 33 gm/dL (32-36); Mean Corpuscular Hemoglobin 32 pg (26-34); Mean Corpuscular Volume 97 fL (80-100); Monocytes Percent Auto 9.1 % (0.0-11.0); Neutrophils Percent Auto 38.8 % (42.0-72.0); Platelet Count* 207 K/uL (140-440); RDW Coefficient of Variation % 12.3 % (11.5-15.5); Red Blood Count 4.44 m/uL (4.00-5.20); White Blood Count* 4.93 K/uL (4.50-11.00)
[2023-08-26 07:17] LABS: Slide Review Reflex No
[2023-08-26 07:38] LABS: Appearance Urine Clear (Clear); Bilirubin Urine 1+ (Negative); Blood Urine Negative (Negative); Color Urine Yellow (Yellow); Glucose Urine Negative (Negative); Ketones Urine Negative (Negative); Leukocyte Esterase Urine Negative (Negative); Nitrite Urine Negative (Negative); Protein Urine Negative (Negative); Specific Gravity Urine >= 1.030 (1.000-1.030); Urobilinogen Urine 0.2 (0.2-1.0); pH Urine 5.5 (5.0-8.5)
[2023-08-26 07:52] LABS: Vitamin D 25 Hydroxy* 37 ng/mL (30-80)
[2023-08-26 07:58] LABS: RBC Urine 0-2 (0-2)
[2023-08-26 07:59] LABS: Bacteria Urine Few; Squamous Epithelial Cell Urine Few (None-Few); WBC Urine 0-2 (0-5)
== END 2023-08-26 09:37 | disposition home or self-care (01) ==
PROVIDERS: Emergency Provider Family Medicine; PCP Family Medicine
DX: R00.2 Palpitations (principal); R39.89 Other symptoms and signs involving the genitourinary system; Z13.21 Encounter for screening for nutritional disorder
CPT/HCPCS: 36415; 71045; 80053; 81001; 82306; 83735; 84484; 85025; 85379; 86140; 87086; 93005; 99284

== ENCOUNTER 2023-09-06 08:59 | Outpatient (CLI) | payer MEDICARE, SELFPAY ==
--- OUTSIDE RECORDS SUMMARY | 2023-09-06 09:01 | XMS_ITS | Continuity of Care Document ---
Author Organization [facility] Address [address] [place] [address] Phone Care Team Providers Care Diversity Specialist Name Role Phone Amy Ann DO, Carmelita Unavailable Unavailab le Allergies, Adverse Reactions, Alerts Substance Reaction Status Criticality tolmetin RashRash Active No Information Medications Medication Instructions Dosage Effective Dates (start - stop) Status Comments Multiple Vitamins tablet - Active vitamin B complex capsule - Active Vitamin D3 50 mcg (2,000 unit) tablet - Active valacyclovir 1 gram tablet take 1 tablet by oral route as needed - Active naproxen sodium 220 mg tablet take 2 tablet by oral route every 12 hours as needed 440 MG - Active fluticasone propionate 50 mcg/actuation nasal spray,suspension spray 1 - 2 spray by intranasal route every day in each nostril as needed 50-100 MCG - Active atorvastatin 10 mg tablet take 1 tablet by oral route every evening 10 MG - Active Procedures Procedure Date Office/Outpatient Visit, New Routine Venipuncture Specimen Handling Urinalysis Nonauto W/O Scope Complete Cbc WAuto Diff Wbc Advance Directives Directive Yes / No Effective Date File Name No Information Encounters Encounter Description Practice Location Reason(s) For Visit Diagnoses Date Provider Providers Copied on Encounter [facility], [address], [place], [address], tel:[phone] [facility], No Information Amy Mae. [address], [place], [address], [place]. tel: [phone] Office/Outpa tient Visit, [facility], [address], [place], [address], [place] tel:[phone] [facility], Raised antibody titerFatigueP ain in unspecified shoulderPain in unspecified knee 2 Amy Mae. [address], [place], [address], [place]. tel: [phone] Referring Provider: Carmelita Gar, [address], [place], [address]. tel:[phone] Family History Family Member Type Diagnosis Age At Onset No Information Payers Payer name Insurance type Covered alliance party ID Patt christinatre(s) [employer] Medicare Advantage CI [id number] Social History Type Description Quantity Date Captured [...]
--- OUTSIDE RECORDS SUMMARY | 2023-09-06 09:02 | XMS_ITS | Clinical Summary ---
Author Organization [facility] Address [place], [place] [address] Care Team Providers Care Partner Management Consultant Name Role Phone Kathie Flores MD Primary Care Provider + Allergies Active Allergy Reactions Criticality Noted Date Comments Aspirin GI Upset 01/16/2020 abd pain Tolmetin Rash 06/14/2006 tolectin Medications Medication Sig Dispensed Refills Start Date End Date Status fluticasone (50 mcg per actuation) nasal solution (FLONASE)Indications :Environmental allergies Inhale 1 [place] into both nostrils once daily. 1 Bottle [...] Coronary atherosclerosis of unspecified type of vessel, iliamna or graft 09/15/2009 12/29/2009 CVD (cardiovascular disease) 09/15/2009 12/29/2009 Adjustment disorder with mix ed anxiety and depressed mood 05/29/2008 02/05/2011 Adjustment disorder with depressed mood 02/05/2011 Encounters Date Type Department Care Team Description 08/17/2023 10:00 AM CDT Office Visit [address] [address] Brionna Hyde PsyD, [facility] Individual Therapy 08/17/2023 Travel 07/13/2023 2:00 PM CDT Office Visit [address] [address] Brionna Hyde PsyD, LP Individual Therapy 07/13/2023 Travel 06/15/2023 10:00 AM CDT Office Visit [address] [address] Brionna Hyde PsyD, LP Individual Therapy; Trmt [...] Comments Blood Pressure 136/80 01/17/2020 10:25 AM DYNAMITE CARTRIDGE CRIMPER Pulse 58 01/17/2020 10:25 AM DYNAMITE CARTRIDGE CRIMPER Temperature 36.3 ??C (97.4 ??F) 01/17/2020 8:33 AM CS T Respiratory Rate 18 01/17/2020 10:25 AM DYNAMITE CARTRIDGE CRIMPER Oxygen Saturation 99% 01/17/2020 10:25 AM DYNAMITE CARTRIDGE CRIMPER Inhaled Oxygen Concentration - - Weight 91.6 kg (202 lb) 01/16/2020 12:00 PM DYNAMITE CARTRIDGE CRIMPER Height 182.9 cm (6') 01/16/2020 12:00 PM DYNAMITE CARTRIDGE CRIMPER Body Mass Index 27.4 01/16/2020 12:00 PM DYNAMITE CARTRIDGE CRIMPER Plan of Treatment Upcoming Encounters Date Type Department Care Team (Late st Contact Info) Description 09/21/2023 10:00 AM CDT Office Visit [address] [address] Brionna Hyde PsyD, LP [address] [place] [address] 10/19/2023 10:00 AM CDT Office Visit [address] [address] Brionna Hyde PsyD, LP [address] [place] [address] 11/17/2023 1:00 PM CDT Office Visit [address] [address] Brionna Hyde PsyD, LP [address] [place] [address] 12/21/2023 10:00 AM CDT Office Visit [address] [address] Brionna Hyde PsyD, LP [address] [place] [address] Health Maintenance Due Date Last Done Comments [...] 2 SITES AXIAL Routine 02/27/2015 8:30 AM DYNAMITE CARTRIDGE CRIMPER Post-menopausal XR MAMMO BILAT SCREEN FFDM (IA) Routine 02/27/2015 8:25 AM DYNAMITE CARTRIDGE CRIMPER Breast cancer screening LIPID PANEL W REFLEX MEASURED LDL Routine 02/19/2015 9:42 AM DYNAMITE CARTRIDGE CRIMPER Hyperlipidemia, unspecified hyperlipidemia SCAN-COLONOSCOPY 12/12/2013 3:00 PM CDT from Last 3 Months or Most Recently Relevant to Health Maintenance Results * XR DXA BONE DENSITY 2 SITES (02/27/2015 8:30 AM DYNAMITE CARTRIDGE CRIMPER) Anatomical Region Laterality Modality Spine, HIPS, HIPL, HIPR Other 02/27/2015 8:30 AM DYNAMITE CARTRIDGE CRIMPER Impressions 02/27/2015 4:26 PM DYNAMITE CARTRIDGE CRIMPER IMPRESSION: 1. Normal bone mineral density of the lumbar spine. 2. Normal bone mineral density of the right and left femoral necks. RECOMMENDATIONS: ??Typical preventive recommendations include total daily calcium intake (diet and supplement) of 1500 mg, daily vitamin D intake of 400-800 IU, and regular weight-bearing exercise, in the appropriate clinical setting. Narrative 02/27/2015 4:26 PM DYNAMITE CARTRIDGE CRIMPER BONE DENSITY (DEXA) ? 02/27/2015 8:30 AM HISTORY: ??Postmenopausal female with history of rheumatoid arthritis taking vitamin D. COMPARISON: 10/10/2009 and 12/06/2006. TECHNIQUE: ??The study was performed using DEXA in the AP lumbar spine and AP femur using a [employer] Discovery C. FINDINGS: Using DEXA, the results [...] lumbar spine and AP femur using a [employer] Discovery C. FINDINGS: Using DEXA, the results [...] MAMMO BILAT SCREEN FFDM (02/27/2015 8:25 AM DYNAMITE CARTRIDGE CRIMPER) Anatomical Region Laterality Modality BREASTS, Breast Left, Breast Right Bilateral Other 02/27/2015 8:25 AM DYNAMITE CARTRIDGE CRIMPER Impressions 02/27/2015 9:42 AM DYNAMITE CARTRIDGE CRIMPER IMPRESSION: BI-RADS CATEGORY: 1 - ??NEGATIVE. RECOMMENDED FOLLOW-UP: Annual Mammography. Exam results letter mailed to patient. Narrative 02/27/2015 9:42 AM DYNAMITE CARTRIDGE CRIMPER SCREENING MAMMOGRAM, BILATERAL, DIGITAL w/CAD - 02/27/2015 [...] W REFLEX MEASURED LDL (02/19/2015 9:42 AM DYNAMITE CARTRIDGE CRIMPER) CHOLESTEROL,TOTAL 261(H) 100 - 199 mg/dL 02/19/2015 1:43 PM DYNAMITE CARTRIDGE CRIMPER [facility] TRIGLYCERIDES 144 <150 mg/dL 02/19/2015 1:43 PM DYNAMITE CARTRIDGE CRIMPER [facility] HDL CHOLESTEROL 70 >40 mg/dL 02/19/2015 1:43 PM DYNAMITE CARTRIDGE CRIMPER [facility] NON-HDL CHOLESTEROL 191(H) <145 mg/dl 02/19/2015 1:43 PM DYNAMITE CARTRIDGE CRIMPER [facility] CHOL/HDL RATIO 3.73 <4.50 02/19/2015 1:43 PM DYNAMITE CARTRIDGE CRIMPER [facility] LDL CHOLESTEROL 162(H) <=130 mg/dL 02/19/2015 1:43 PM DYNAMITE CARTRIDGE CRIMPER [facility] PATIENT STATUS FASTING 02/19/2015 1:43 PM DYNAMITE CARTRIDGE CRIMPER [facility] Blood specimen (specimen) BLOOD SPECIMEN / Unknown Venipuncture / Unknown 02/19/2015 9:42 AM DYNAMITE CARTRIDGE CRIMPER 02/19/2015 9:42 AM DYNAMITE CARTRIDGE CRIMPER Fiorella Sims MD [facility] [address] [id number], [place] * SCAN-COLONOSCOPY (12/12/2013 3:00 PM CDT) Narrative Transcriptions Nicole Sloan MD - 12/12/2013 2:13 PM CDT [facility] [address], [address], [place] [address] Patient Name: Jeanette Rios Gender: Female Exam Date: 12/12/2013 Visit Number: [id number] Age: 63 Years 3 Months Date of : 1950 Attending MD: Nicole Sloan MD Medical Record#: [id number] ----- Procedure: Colonoscopy Indications: Colorectal cancer screening [...] can updateyour records. Electronically signed by: Nicole Slona MD 12/12/2013 [facility] [phone] Nicole Sloan MD OTHER from Last 3 Months or Most Recently Relevant to Health Maintenance Advance Directives * Full Code (Latest Code Status on File) Date Activated Date Inactivated Comments 01/17/2020 8:14 AM 01/17/2020 1:18 PM Question Answer Comments Code Status Discussion: Not Discussed Care Teams Partner Management Consultant Relationship Specialty Start Date End Date Kathie Flores MD [address] [place] [address] PCP - General Family Practice 12/16/17
--- NOTE | 2023-09-06 09:15 | CRLHL7_ITS ---
For Patients: As a result of the Cures Act, medical imaging exams and procedure reports are released immediately into your electronic medical record. You may view this report before your referring provider. If you have questions, please contact your health care provider. BILATERAL SCREENING MAMMOGRAM WITH COMPUTER-AIDED DETECTION AND TOMOSYNTHESIS TECHNIQUE: CC and MLO views were obtained. These mammographic images have been obtained using full-field digital technique. These mammographic images were interpreted with the benefit of computer-aided detection. Breast Tomosynthesis was used in this interpretation. COMPARISON FILM: 08/26/22, 08/19/21, 08/18/20. FINDINGS: There are scattered areas of fibroglandular density IMPRESSION: There is no radiographic evidence for malignancy. ASSESSMENT: BI-RADS Category 1: Negative RECOMMENDATION: Routine screening mammogram in 1 year. A lay language report of this examination will be provided to the patient. PATRICIA KIM M.D. Diagnostic/Nuclear Medicine Radiologist [email or web address] GENARO:sam Transcribed: 1:31 p.mKatharine vargas/Dictated by: Patricia Kim MD @ 09/08/2023 9:37:00 AM (Electronically Signed)
== END 2023-09-06 09:00 | disposition home or self-care (01) ==
LOC: MAMMO 09:00
PROVIDERS: PCP Family Medicine; Visit Provider Family Medicine
DX: Z12.31 Encounter for screening mammogram for malignant neoplasm of breast (principal)
CPT/HCPCS: 77063; 77067

== ENCOUNTER 2023-12-05 08:45 | Outpatient (CLI) | payer MEDICARE, SELFPAY ==
--- OUTSIDE RECORDS SUMMARY | 2023-12-06 22:09 | XMS_ITS | Continuity of Care Document ---
Author Organization [facility] Address [address] [address] [place] [address] Phone Care Team Providers Care Automotive Refinisher Name Role Phone Nicole Sloan MD Unavailable [...] Diagnoses Date Provider Providers Copied on Encounter [facility], [address] [address], [place], [place], [id number], [place] tel:[phone] Lamonte [facility] Diverticulosis of colonColon Cancer ScreeningDivert iculosis Of Colon [address] Luther Rivera. [address] [facility], [facility] [address], [place], [place], [id number], [place]. tel:[phone] Referring Provider: Fiorella Sims MD R, [address] [place] [address], [address]. tel:[phone] [facility], [address] [address], [place], [place], [id number], [place] tel:[phone] [facility] No Information [address] Lucero Loyd. [address] [facility], [place], [place], [id number], [place]. tel:[phone] Referring Provider: Fiorella Sims [place] R, [address] [place], [place], [address]. tel:[phone] Family History Family Member Type Diagnosis Age [...] well Payers Payer name Insurance type Covered green party ID Patt wayne(s) [employer] [id number] Social History Type Description Quantity Date Captured [...]
--- OUTSIDE RECORDS SUMMARY | 2023-12-06 22:10 | XMS_ITS | Continuity of Care Document ---
Author Organization [facility] Address [address] [place] [address] Phone Care Team Providers Care Chief Load Dispatcher Name Role Phone Amy Ann DOCarmelita Unavailable [...] [facility], [address], [place], [address], [place] tel:[phone] [facility], No Information Amy Mae. [address], [place], [address], [place]. tel: [phone] Office/Outpa tient Visit, New [facility], [address], [place], [address], [place] tel:[phone] [facility], Raised antibody titerFatigueP ain in unspecified shoulderPain in unspecified knee [address] Mae[address], [place], [address], [place]. tel: [phone] Referring Provider: Carmelita Gar, [address], [place], [address]. tel:[phone] Family History Family Member Type Diagnosis Age At Onset No Information Payers Payer name Insurance type Covered republican ID Patt christinatre(s) [employer] Medicare Advantage CI [id number] Social History Type Description Quantity Date Captured [...]
--- OUTSIDE RECORDS SUMMARY | 2023-12-06 22:10 | XMS_ITS | Clinical Summary ---
Author Organization [facility] Address [place], [place] [address] Care Team Providers Care Crane Follower Name Role Phone Kathie Flores MD Primary Care Provider + Allergies Active Allergy Reactions Criticality Noted Date Comments Aspirin GI Upset 01/16/2020 abd pain Tolmetin Rash 06/14/2006 tolectin Medications Medication Sig Dispensed Refills Start Date End Date Status fluticasone (50 mcg per actuation) nasal solution (FLONASE)Indications :Environmental allergies Inhale 1 [place] into both nostrils once daily. 1 Bottle [...] vitamin D deficiency 02/05/2011 Tachycardia, unspecified 12/29/2009 Overview (12/29/2009): Intermittant; trigger by caffeine Insomnia, unspecified 12/29/2009 Arthritis, rheumatic, acute or subacute 05/28/19 10 Overview (04/09/2011): Diagnosis in the s but had a Negative RA. Symptoms controlled with hormones-- control pills Fibromyalgia 05/27/2009 Hyperlipemia 05/27/2009 Routine health maintenance 05/27/2009 Overview (12/29/2009): Physical,pap,breast exam,cholesterol 240, ldl 138,hdl, 69 Colon: 9.2004- normal BMD: 10.2006 normal density Resolved Problems Problem Noted Date Diagnosed Date Resolved Date Coronary atherosclerosis of unspecified type of vessel, zuni or graft 09/15/2009 12/29/2009 CVD (cardiovascular disease) 09/15/2009 12/29/2009 Adjustment disorder with mix ed anxiety and depressed mood 05/29/2008 02/05/2011 Adjustment disorder with depressed mood 02/05/2011 Encounters Date Type Department Care Team Description 11/17/2023 1:00 PM CDT Office Visit [address] [address] Brionna Hyde PsyD, BO Individual Therapy 11/17/2023 Travel 10/19/2023 10:00 AM CDT Office Visit [address] [address] Brionna Hyde PsyD, BO Individual Therapy 10/19/2023 Travel 09/21/2023 10:00 AM CDT Office Visit [address] [address] Brionna Hyde PsyD, BO Individual Therapy 09/21/2023 Travel from Last 3 Months Immunizations Name [...] Comments Blood Pressure 136/80 01/17/2020 10:25 AM SHEAR GRINDER OPERATOR HELPER Pulse 58 01/17/2020 10:25 AM SHEAR GRINDER OPERATOR HELPER Temperature 36.3 ??C (97.4 ??F) 01/17/2020 8:33 AM CS T Respiratory Rate 18 01/17/2020 10:25 AM SHEAR GRINDER OPERATOR HELPER Oxygen Saturation 99% 01/17/2020 10:25 AM SHEAR GRINDER OPERATOR HELPER Inhaled Oxygen Concentration - - Weight 91.6 kg (202 lb) 01/16/2020 12:00 PM SHEAR GRINDER OPERATOR HELPER Height 182.9 cm (6') 01/16/2020 12:00 PM SHEAR GRINDER OPERATOR HELPER Body Mass Index 27.4 01/16/2020 12:00 PM SHEAR GRINDER OPERATOR HELPER Plan of Treatment Upcoming Encounters Date Type Department Care Team (Late st Contact Info) Description 12/21/2023 10:00 AM CDT Office Visit [address] [address] Brionna Hyde PsyD, LP [address] [place] [address] 01/18/2024 10:00 AM SHEAR GRINDER OPERATOR HELPER Office Visit [address] [address] Brionna Hyde PsyD, LP [address] [place] [address] 02/15/2024 10:00 AM SHEAR GRINDER OPERATOR HELPER Office Visit [address] [address] Brionna Hyde PsyD, LP [address] [place] [address] Health Maintenance Due Date Last Done Comments [...] booster 02/15/2022 02/16/2012, 04/09/2003 COVID-19 vaccine series ( season) 2023 12/16/2022, 11/24/2021, 12/25/2020, Additional history exists Influenza for age 65+ 10/30/2023 01/20/2016 , 12/30/2014, 02/16/2013, Additional history exists Colonoscopy through age 75 12/13/2023 12/12/2013, Tdap Completed 02/16/2012 Procedures Procedure Name Priority Date/Time Associated Diagnosis Comments XR DXA BONE DENSITY 2 SITES AXIAL Routine 02/27/2015 8:30 AM SHEAR GRINDER OPERATOR HELPER Post-menopausal XR MAMMO BILAT SCREEN FFDM (IA) Routine 02/27/2015 8:25 AM SHEAR GRINDER OPERATOR HELPER Breast cancer screening LIPID PANEL W REFLEX MEASURED LDL Routine 02/19/2015 9:42 AM SHEAR GRINDER OPERATOR HELPER Hyperlipidemia, unspecified hyperlipidemia SCAN-COLONOSCOPY 12/12/2013 3:00 PM CDT from Last 3 Months or Most Recently Relevant to Health Maintenance Results * XR DXA BONE DENSITY 2 SITES (02/27/2015 8:30 AM SHEAR GRINDER OPERATOR HELPER) Anatomical Region Laterality Modality Spine, HIPS, HIPL, HIPR Other 02/27/2015 8:30 AM SHEAR GRINDER OPERATOR HELPER Impressions 02/27/2015 4:26 PM SHEAR GRINDER OPERATOR HELPER IMPRESSION: 1. Normal bone mineral density of the lumbar spine. 2. Normal bone mineral density of the right and left femoral necks. RECOMMENDATIONS: ??Typical preventive recommendations include total daily calcium intake (diet and supplement) of 1500 mg, daily vitamin D intake of 400-800 IU, and regular weight-bearing exercise, in the appropriate clinical setting. Narrative 02/27/2015 4:26 PM SHEAR GRINDER OPERATOR HELPER BONE DENSITY (DEXA) ? 02/27/2015 8:30 AM HISTORY: ??Postmenopausal female with history of rheumatoid arthritis taking vitamin D. COMPARISON: 10/10/2009 and 12/06/2006. TECHNIQUE: ??The study was performed using DEXA in the AP lumbar spine and AP femur using a [employer] Discovery C. FINDINGS: Using DEXA, the results [...] lumbar spine and AP femur using a [employer] Discovery C. FINDINGS: Using DEXA, the results [...] MAMMO BILAT SCREEN FFDM (02/27/2015 8:25 AM SHEAR GRINDER OPERATOR HELPER) Anatomical Region Laterality Modality BREASTS, Breast Left, Breast Right Bilateral Other 02/27/2015 8:25 AM SHEAR GRINDER OPERATOR HELPER Impressions 02/27/2015 9:42 AM SHEAR GRINDER OPERATOR HELPER IMPRESSION: BI-RADS CATEGORY: 1 - ??NEGATIVE. RECOMMENDED FOLLOW-UP: Annual Mammography. Exam results letter mailed to patient. Narrative 02/27/2015 9:42 AM SHEAR GRINDER OPERATOR HELPER SCREENING MAMMOGRAM, BILATERAL, DIGITAL w/CAD - 02/27/2015 8:25 AM. BREAST SYMPTOMS: No current breast complaints. COMPARISON: ??[facility] 03/12/14, SI 01/21/10 BREAST DENSITY: Heterogeneously dense, limiting mammographic sensitivity. COMMENTS: No findings of suspicion for malignancy. ? Procedure Note Unknown, Doctor - 02/27/2015 SCREENING MAMMOGRAM, BILATERAL, DIGITAL w/CAD - 02/27/2015 8:25 AM. BREAST SYMPTOMS: No current breast complaints. COMPARISON: [facility] 03/12/14, SI 01/21/10 BREAST DENSITY: Heterogeneously dense, limiting mammographic sensitivity. COMMENTS: No findings of suspicion for malignancy. IMPRESSION: IMPRESSION: BI-RADS CATEGORY: 1 - NEGATIVE. RECOMMENDED FOLLOW-UP: Annual Mammography. Exam results letter mailed to patient. Fiorella Sims MD MAMMO * (ABNORMAL) LIPID PANEL W REFLEX MEASURED LDL (02/19/2015 9:42 AM SHEAR GRINDER OPERATOR HELPER) CHOLESTEROL,TOTAL 261(H) 100 - 199 mg/dL 02/19/2015 1:43 PM SHEAR GRINDER OPERATOR HELPER [facility] TRIGLYCERIDES 144 <150 mg/dL 02/19/2015 1:43 PM SHEAR GRINDER OPERATOR HELPER [facility] HDL CHOLESTEROL 70 >40 mg/dL 02/19/2015 1:43 PM SHEAR GRINDER OPERATOR HELPER [facility] NON-HDL CHOLESTEROL 191(H) <145 mg/dl 02/19/2015 1:43 PM SHEAR GRINDER OPERATOR HELPER [facility] CHOL/HDL RATIO 3.73 <4.50 02/19/2015 1:43 PM SHEAR GRINDER OPERATOR HELPER [facility] LDL CHOLESTEROL 162(H) <=130 mg/dL 02/19/2015 1:43 PM SHEAR GRINDER OPERATOR HELPER [facility] PATIENT STATUS FASTING 02/19/2015 1:43 PM SHEAR GRINDER OPERATOR HELPER [facility] Blood specimen (specimen) BLOOD SPECIMEN / Unknown Venipuncture / Unknown 02/19/2015 9:42 AM SHEAR GRINDER OPERATOR HELPER 02/19/2015 9:42 AM SHEAR GRINDER OPERATOR HELPER Fiorella Sims MD [facility] [address] [place] [address], * SCAN-COLONOSCOPY (12/12/2013 3:00 PM CDT) Narrative Transcriptions Nicole Sloan MD - 12/12/2013 2:13 PM CDT [facility] [address], [address], [place] [address] Patient Name: Jeanette Rios Gender: Female Exam Date: 12/12/2013 Visit Number: [id number] Age: 63 Years 3 Months Date of : 1950 Attending MD: Nicole Sloan MD Medical Record#: [id number] ----- Procedure: Colonoscopy Indications: Colorectal cancer screening [...] an immediate family member, you should contact [facility] primary provider to discuss whether your next [...] Electronically signed by: Nicole Sloan MD 12/12/2013 [facility] [phone] Nicole Sloan MD OTHER from Last 3 Months or Most Recently Relevant to Health Maintenance Advance Directives * Full Code (Latest Code Status on File) Date Activated Date Inactivated Comments 01/17/2020 8:14 AM 01/17/2020 1:18 PM Question Answer Comments Code Status Discussion: Not Discussed Care Teams Crane Follower Relationship Specialty Start Date End Date Kathie Flores MD [address] [place] [address] PCP - General Family Practice 12/16/17
== END 2023-12-05 08:46 | disposition home or self-care (01) ==
LOC: NFLDREF 12-06 22:08
PROVIDERS: PCP Family Medicine; Referring Provider Family Medicine; Visit Provider Family Medicine
DX: E55.9 Vitamin D deficiency, unspecified (principal); E78.5 Hyperlipidemia, unspecified; I10 Essential (primary) hypertension
CPT/HCPCS: 80053; 80061; 82306

== ENCOUNTER 2024-01-05 11:30 | Outpatient (CLI) | payer MEDICARE, SELFPAY ==
--- NOTE | 2024-01-05 12:50 | P.ANES_ITS ---
Anesthesia Charges Start Date/Time Anesthesia Start Date: 01/05/24 Anesthesia Start Time: 12:12 Stop Date/Time Anesthesia Stop Date: 01/05/24 Anesthesia Stop Time: 12:48 Summary Extremes of Age - Over 70 or under 1: TOOL GRINDER SET UP OPERATOR GEAR
== END 2024-01-05 11:31 | disposition home or self-care (01) ==
PROVIDERS: PCP Family Medicine; Visit Provider Surgery
DX: Z12.11 Encounter for screening for malignant neoplasm of colon (principal); D12.2 Benign neoplasm of ascending colon; D12.3 Benign neoplasm of transverse colon; K57.30 Diverticulosis of large intestine without perforation or abscess without bleeding
CPT/HCPCS: 00811; 45380; 45385; 88305; 99100; J2704

== ENCOUNTER 2024-01-15 10:30 | Emergency (ER) | payer MEDICARE, SELFPAY ==
[2024-01-15] VITALS (10 sets, daily range): BP systolic 118–128; BP diastolic 62–77; PULSE 62–79; RESP 18; TEMP 36.6; O2SAT 93–97; BMI 27.1
--- NOTE | 2024-01-15 11:29 | ED.ARRPALP ---
HPI - Arrhythmia/Palpitations General Chief Complaint: Arrhythmia/Palpitations Stated Complaint: cardiac issues Time Seen by Provider: 01/15/24 11:09 History of Present Illness HPI narrative: This 73-year-old female comes in reporting 4 episodes of supraventricular tachycardia that occurred over the past couple days. She has a history of these dysrhythmias in the past and is currently not taking any rate controlling medications. She does not describe any associated symptoms accompanying her increased heart rate which she noted to be around 150 beats per minute. She did not have any chest pain, nausea, lightheadedness, shortness of breath, or intolerance of activity. She states that she did attempt Valsalva maneuvers and was successful a couple of the times. The other 2 times her heart rate spontaneously reverted back to normal rate and rhythm. Related Data Home Medications ?Medication ?Instructions ?Recorded ?Confirmed naproxen sodium 220 mg tablet 220 mg PO PRN 08/26/21 01/06/24 vitamin B complex 1 tab PO QDAY 11/20/21 01/06/24 Previous Rx's ?Medication ?Instructions ?Recorded cholecalciferol (vitamin D3) 50 50 mcg PO QDAY #100 caps 11/20/21 mcg (2,000 unit) capsule cyanocobalamin (vitamin B-12) 1,000 mcg PO QDAY #100 caps 11/20/21 1,000 mcg capsule fluticasone propionate 50 1 spray intranasal DAILY PRN 11/20/21 mcg/actuation nasal allergy symptoms #16 grams spray,suspension rosuvastatin 5 mg tablet 5 mg PO DAILY #90 tabs 12/07/23 metoprolol succinate 25 mg 25 mg PO DAILY #30 tabs 01/15/24 tablet,extended release 24 hr Allergies Allergy/AdvReac Type Severity Reaction Status Date / Time nitrofurantoin (From Allergy Intermediate Dizziness Verified 01/06/24 09:32 Macrobid) tolmetin Allergy Intermediate Hives Verified 01/06/24 09:32 aspirin AdvReac Intermediate Abdominal Verified 01/06/24 09:32 Pain Review of Systems Status of ROS: Reports: 10 or more systems reviewed and unremarkable except as noted in History and below Narrative: Constitutional: No fevers, no weight gain or loss. Eyes: No discharge. No vision changes. HENT: No congestion, no sore throat, no ear pain. Cardiovascular: No chest pain, no palpitations. Respiratory: No shortness of breath, no wheezes, no cough. Gastrointestinal: No abdominal pain, no vomiting, no diarrhea. Genitourinary: No dysuria, no hematuria. Musculoskeletal: Normal range of motion. Skin: No rashes, no pruritis. Neurological: No dizziness, weakness, sensory change, speech change. Endo/Heme/Allergies: No bruising or bleeding. No polydipsia. Pysch: no suicidality, no anxiety, no insomnia. All other systems reviewed and are negative. [facility] Medical History (Updated 01/15/24 @ 11:34 by Fahad Friend MD) GERD (gastroesophageal reflux disease) ?K21.9 - Gastro-esophageal reflux disease without esophagitis (ICD-10) Adverse effect of nitrofurantoin ?T37.8X5A - Adverse effect of other specified systemic anti-infectives and antiparasitics, initial encounter (ICD-10) Burt's neuroma of right foot ?G57.61 - Lesion of plantar nerve, right lower limb (ICD-10) Vitamin D deficiency ?E55.9 - Vitamin D deficiency, unspecified (ICD-10) Ventricular premature beats (2018) ?I49.3 - Ventricular premature depolarization (ICD-10) Tinnitus ?H93.19 - Tinnitus, unspecified ear (ICD-10) 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 ?B00.89 - Other herpesviral infection (ICD-10) Mild sleep apnea (07/2018) ?G47.30 - Sleep apnea, unspecified (ICD-10) Low vitamin B12 level ?E53.8 - Deficiency of other specified B group vitamins (ICD-10) History of supraventricular tachycardia ?Z86.79 - Personal history of other diseases of the circulatory system (ICD-10) History of rheumatoid arthritis ?Z87.39 - Personal history of other diseases of the musculoskeletal system and connective tissue (ICD-10) History of fibromyalgia ?Z87.39 - Personal history of other diseases of the musculoskeletal system and connective tissue (ICD-10) History of depression ?Z86.59 - Personal history of other mental and behavioral disorders (ICD-10) Dyslipidemia ?E78.5 - Hyperlipidemia, unspecified (ICD-10) Surgical History H/O eye surgery (2019) ?Z98.890 - Other specified postprocedural states (ICD-10) Normal colonoscopy (2013) History of vaginal delivery History of right cataract extraction (06/2020) ?Z98.41 - Cataract extraction status, right eye (ICD-10) History of arthroscopy of right knee (1983) ?Z98.890 - Other specified postprocedural states (ICD-10) History of arthroscopy of right knee (1977) ?Z98.890 - Other specified postprocedural states (ICD-10) Family History (Updated 12/07/23 @ 13:56 by Kathie Flores MD) Brother Cardiac arrhythmia Lupus erythematosus H/O angioplasty, Onset Age: 45 Mother Alzheimers disease, Onset Age: 75 Stroke, Onset Age: 80 Father Basal cell carcinoma CHF (congestive heart failure), Onset Age: 86 Cardiac arrhythmia, Onset Age: 65 Maternal Grandmother Breast cancer, Onset Age: 40 Other Parkinson's disease Social History (Updated 12/07/23 @ 14:02 by Kathie Flores MD) Narrative: , retired from [employer], 2 kids non-smoker- quit age 32, 6 pack years social drinker- 5/week exercises 3-4 times per week- 50N silver sneakers, gardening, 8000 steps daily health care directive on file- health care directive completed on 06/05/19, reviewed and sent for scanning to medical record on 11/21/20 What is your current living situation?: I presently have a place to live In the past 12 months, utilities in danger of being shut off: no In the past 12 mos, have been you worried that your food would run out before you had money to buy more?: never true In the past 12 mos, the food you bought just didn't last and you didn't have money to buy more?: never true Smoking Status: Former smoker Do you use any of these nicotine containing products: None Second hand tobacco smoke exposure: No How often do you have a drink containing alcohol: 2-3 times a week How many standard drinks containing alcohol do you have on a typical day: 1 or 2 How often do you have six or more drinks on one occasion: Never AUDIT-C Alcohol total score: 3 Non-prescribed substance use: denies use How often does anyone, including family, friends and others, physically hurt you: never How often does anyone, including family, friends and others, insult or talk down to you: never How often does anyone, including family, friends and others, threaten you with harm: never How often does anyone, including family, friends and others, scream or curse at you: never service: No Exam Narrative: Exam Narrative: Constitutional: Well-developed, well-nourished, no acute distress. HEENT: Normocephalic, atraumatic. Neck: Normal range of motion. Nontender. Supple. Heart: Regular. No murmurs. Normal rate. Intact distal pulses. Lungs: Clear to auscultation. No chest discomfort. No wheezes, rhonchi, or rales. Abdomen: Normal bowel sounds. Nontender. No rebound tenderness. Genitalia: Deferred. Back: No midline tenderness. Normal range of motion. Extremities: Normal range of motion. No injury. Skin: Intact. No rash. Warm. No erythema or pallor. Neurologic: No altered sensation. No weakness. Alert and oriented. Psychiatric: No suicidality. No anxiety or depression. No insomnia. Nursing notes and vitals signs are reviewed. Const: Vital Signs, click to edit/add: Vital Signs - 24 hr 01/15/24 10:37 Temperature 97.8 F Pulse Rate [Pulse Oximeter] 78 Respiratory Rate 18 Blood Pressure [Le ft Upper Arm] 128/77 Pulse Oximetry 97 Oxygen Delivery Me thod Room Air Course Vital Signs Vital signs: Initial Vital Signs Temperature 97.8 F 01/15/24 10:37 Temperature Source Temporal Artery Scan 01/15/24 10:37 Pulse Rate 78 01/15/24 10:37 Respiratory Rate 18 01/15/24 10:37 Blood Pressure 128/77 01/15/24 10:37 Blood Pressure Mean 94 01/15/24 10:37 Blood Pressure Position Supine 01/15/24 10:37 Pulse Oximetry 97 01/15/24 10:37 Oxygen Delivery Method Room Air 01/15/24 10:37 Vital Signs Temperature 97.8 F 01/15/24 10:37 Pulse Rate 78 01/15/24 10:37 Respiratory Rate 18 01/15/24 10:37 Blood Pressure 128/77 01/15/24 10:37 Pulse Oximetry 97 01/15/24 10:37 Oxygen Delivery Method Room Air 01/15/24 10:37 Temperature 97.8 F 01/15/24 10:37 Pulse Rate 78 01/15/24 10:37 Respiratory Rate 18 01/15/24 10:37 Blood Pressure 128/77 01/15/24 10:37 Pulse Oximetry 97 01/15/24 10:37 Oxygen Delivery Method Room Air 01/15/24 10:37 MDM - Arrhythmia/Palpitations MDM Narrative Medical decision making narrative: This patient is reporting episodes of increased heart rate and has had a previous diagnosis of paroxysmal SVT. Currently she is not having any symptoms and her heart rate is in normal sinus rhythm and rate. She did not have any associated symptoms when these episodes occurred and tolerated them well. I did offer lab and imaging studies which the patient declined in a process of shared decision making. She does have connections with a business travel consultant. I did provide a 1 time dose of metoprolol succinate 25 mg and a prescription for the same. I instructed her regarding signs and symptoms that would indicate a need for return and re-evaluation. She plans to follow-up with her primary physician. ECG Data Attestation: I personally reviewed and interpreted this ECG as follows: Interpretation: Normal sinus rhythm. Rate is 78 beats per minute. There are no ST or T-wave abnormalities. Discharge Plan Discharge Clinical Impression: Paroxysmal supraventricular tachycardia Patient Disposition: Home, Self-Care Condition: Stable Additional Instructions: Take medication as prescribed. Follow up with primary physician or Cardiology as needed. Return if symptoms are recurrent or worsening. Prescriptions: New metoprolol succinate 25 mg tablet extended release 24 hr 25 mg PO DAILY Qty: 30 2RF No Action vitamin B complex Tablet 1 tab PO QDAY fluticasone propionate 50 mcg/actuation spray,suspension 1 spray intranasal DAILY PRN (Reason: allergy symptoms) Qty: 16 5RF cholecalciferol (vitamin D3) 50 mcg (2,000 unit) capsule 50 mcg PO QDAY Qty: 100 4RF cyanocobalamin (vitamin B-12) 1,000 mcg capsule 1,000 mcg PO QDAY Qty: 100 4RF naproxen sodium 220 mg tablet 220 mg PO PRN rosuvastatin 5 mg tablet 5 mg PO DAILY Qty: 90 3RF Follow Up/Referrals: Kathie Flores MD [Primary Care Provider] - Stand Alone Forms: MyHealth Info Instructions
--- NOTE | 2024-01-15 11:54 | ED.NURSE ---
Patient wants to talk with her doctor before starting any new medication and declined taking metoprolol at hospital.
== END 2024-01-15 11:58 | disposition home or self-care (01) ==
LOC: ED 11:37
PROVIDERS: Emergency Provider Emergency Medicine Emergency Medical Services; PCP Family Medicine
DX: I47.19 Other supraventricular tachycardia (principal)
CPT/HCPCS: 99284

== ENCOUNTER 2024-01-25 08:35 | Outpatient (CLI) | payer MEDICARE, SELFPAY ==
--- OUTSIDE RECORDS SUMMARY | 2024-01-27 12:18 | XMS_ITS | Clinical Summary ---
Author Organization [facility] Address [place], [place] [address] Care Team Providers Care Mortgage Protection Sales Name Role Phone Kathie Flores MD Primary Care Provider + Allergies Active Allergy Reactions Criticality Noted Date Comments Aspirin GI Upset 01/16/2020 abd pain Tolmetin Rash 06/14/2006 tolectin Medications Medication Sig Dispensed Refills Start Date End Date Status fluticasone (50 mcg per actuation) nasal solution (FLONASE)Indications :Environmental allergies Inhale 1 [place] into both nostrils once daily. 1 Bottle [...] Coronary atherosclerosis of unspecified type of vessel, elem or graft 09/15/2009 12/29/2009 CVD (cardiovascular disease) 09/15/2009 12/29/2009 Adjustment disorder with mix ed anxiety and depressed mood 05/29/2008 02/05/2011 Adjustment disorder with depressed mood 02/05/2011 Encounters Date Type Department Care Team Description 01/18/2024 10:00 AM ORCHARD MANAGER Office Visit [facility] [id number] [place] [id number] Brionna Hyde PsyD, LP Individual Therapy 01/18/2024 Telephone [facility] [address] [place] [address] [phone] Sunday Story MD Medication Management (Prescribed metoprolol new prescription form [facility] & has ?s.) 01/18/2024 Travel 01/05/2024 Lab Requisition [facility] [phone] Juan R Mccarthy MD 12/21/2023 10:00 AM CDT Office Visit [facility] [id number] [place] [id number] Brionna Hyde PsyD, LP Individual Therapy; Trmt Plan 12/21/2023 Travel 12/07/2023 Telephone [facility] [address] [place] [id number] Brionna Hyde PsyD, LP Phone Visit 11/17/2023 1:00 PM CDT Office Visit [facility] [address] [place] [address] Brionna Hyde PsyD, LP Individual Therapy 11/17/2023 Travel from Last 3 Months Immunizations Name [...] Alive Father Alive Maternal Grandfather (Age 62) [place] Maternal Grandmother (Age 70's) dementia Mother complication of stroke Paternal Grandfather (Age 78) [facility] Paternal Grandmother (Age 93) [facility] F Sister Alive Son [facility] Alive Social History Tobacco Use Types Packs/Day [...] Comments Blood Pressure 136/80 01/17/2020 10:25 AM ORCHARD MANAGER Pulse 58 01/17/2020 10:25 AM ORCHARD MANAGER Temperature 36.3 C (97.4 F) 01/17/2020 8:33 AM ORCHARD MANAGER Respiratory Rate 18 01/17/2020 10:25 AM ORCHARD MANAGER Oxygen Saturation 99% 01/17/2020 10:25 AM ORCHARD MANAGER Inhaled Oxygen Concentration - - Weight 91.6 kg (202 lb) 01/16/2020 12:00 PM ORCHARD MANAGER Height 182.9 cm (6') 01/16/2020 12:00 PM ORCHARD MANAGER Body Mass Index 27.4 01/16/2020 12:00 PM ORCHARD MANAGER Plan of Treatment Upcoming Encounters Date Type Department Care Team (Late st Contact Info) Description 02/15/2024 10:00 AM ORCHARD MANAGER Office Visit [address] [phone] Brionna Hyde PsyD, BO [address] [place] [phone] 03/21/2024 10:00 AM ORCHARD MANAGER Office Visit [address] [address] Brionna Hyde PsyD, BO [address] [place] [id number] 04/18/2024 10:00 AM ORCHARD MANAGER Office Visit [address] [address] Brionna Hyde PsyD, BO [address] [place] [id number] Health Maintenance Due Date Last Done Comments Hepatitis C screening for ag e 1968 Zoster (shingles) series for age 50+ [...] history exists Tetanus booster 02/15/2022 02/16/2012, 04/09/2003 Influenza for age 65+ 10/30/2023 01/20/2016 , 12/30/2014, 02/16/2013, Additional history exists Colonoscopy through age 75 12/13/2023 12/12/2013, Tdap Completed 02/16/2012 COVID-19 vaccine series Completed 12/07/19 24, 12/16/2022, 11/24/2021, Additional history exists Procedures Procedure Name Priority Date/Time Associated Diagnosis Comments LAB TRACKING EVENT Routine 01/05/2024 12 :40 PM ORCHARD MANAGER PATH TISSUE EXAM Routine 01/05/2024 12:4 0 PM ORCHARD MANAGER XR DXA BONE DENSITY 2 SITES AXIAL Routine 02/27/2015 8:30 AM ORCHARD MANAGER Post-menopausal XR MAMMO BILAT SCREEN FFDM (IA) Routine 02/27/2015 8:25 AM ORCHARD MANAGER Breast cancer screening LIPID PANEL W REFLEX MEASURED LDL Routine 02/19/2015 9:42 AM ORCHARD MANAGER Hyperlipidemia, unspecified hyperlipidemia SCAN-COLONOSCOPY 12/12/2013 3:00 PM CDT from Last 3 Months or Most Recently Relevant to Health Maintenance Results * LAB TRACKING EVENT (01/05/2024 12:40 PM ORCHARD MANAGER) Other (Other) Client Collect / Unknown 01/05/2024 12:40 PM ORCHARD MANAGER 01/05/2024 10:12 PM ORCHARD MANAGER Juan R Mccarthy MD LAB BILL ONLY [facility] [address] [place] [address], * PATH TISSUE EXAM (01/05/2024 12:40 PM ORCHARD MANAGER) Case Report Pathology Report Case: [id number] Authorizing Provider: Juan R Mccarthy MD Collected: 01/05/2024 1240 Ordering Location: [facility] Received: 01/06/2024 1006 Pathologist: Soha Salas MD Specimens: A) - Ascending Colon Polyp B) - Hepatic Flexure Polyp C) - Sigmoid Biopsy 01/10/2024 10:52 AM ORCHARD MANAGER [facility] Final Diagnosis A) COLON, ASCENDING, POLYPECTOMIES: 1. Tubular adenoma (1) and normal colonic mucosa (clinically 2 polyps) 2. Negative for high grade dysplasia 3. Per the colonoscopy report: a. Polyp sizes: 2 mm - 3 mm b. Resection: Complete c. Retrieval: Complete B) COLON, HEPATIC FLEXURE, POLYPECTOMIES: 1. Tubular adenomas (2) 2. Negative for high grade dysplasia 3. Per the colonoscopy report: a. Polyp sizes: 3 mm - 4 mm b. Resection: Complete c. Retrieval: Complete C) COLON, SIGMOID, BIOPSY: 1. Colonic mucosa with no diagnostic abnormalities 2. Negative for microscopic, active, and chronic colitis 01/10/2024 10:52 AM ORCHARD MANAGER [facility] Clinical Information Screening colonoscopy. Localized mild inflammation in the sigmoid colon. 01/10/2024 10:52 AM ORCHARD MANAGER [facility]- ENTRAL LABORATORY Gross Description A) Received in formalin are 3 noguera-pink soft to rubbery polypoid tissues ranging from 1 mm to 7 mm. It is labeled with the patient's name and designated ascending colon polyp. B) Received in formalin are 7 noguera-pink soft to rubbery polypoid tissues ranging from 3 mm to 11 mm. It is labeled with the patient's name and designated hepatic flexure polyp. C) Received in formalin are 3 noguera mucosal fragments averaging 3 mm in greatest dimension, which are entirely submitted in one cassette. It is labeled with the patient's name and designated sigmoid colon. ROSANA Garcia 01/06/2024 11:24 AM 01/10/2024 10:52 AM ORCHARD MANAGER [facility] LABORATORY-C ENTRAL LABORATORY Microscopic Description The final diagnosis is based on microscopic examination of appropriate sections of all specimens. 01/10/2024 10:52 AM ORCHARD MANAGER [facility] LABORATORY-C ENTRAL LABORATORY Additional Information Interpreted at [facility], Central Laboratory - [address] [place] [address] [address] 01/10/2024 10:52 AM ORCHARD MANAGER [facility] Other (Ascending Colon Polyp) 01/05/2024 12:40 PM ORCHARD MANAGER 01/06/2024 10:06 AM ORCHARD MANAGER Specimen (specimen) (Hepatic Flexure Polyp) 01/05/2024 12:40 PM ORCHARD MANAGER 01/06/2024 10:06 AM ORCHARD MANAGER Specimen (specimen) (Sigmoid Biopsy) 01/05/2024 12:40 PM ORCHARD MANAGER 01/06/2024 10:06 AM ORCHARD MANAGER Juan R Mccarthy MD PATHOLOGY/CYTOLOGY [facility] [address] [place] [address], * XR DXA BONE DENSITY 2 SITES (02/27/2015 8:30 AM ORCHARD MANAGER) Anatomical Region Laterality Modality Spine, HIPS, HIPL, HIPR Other 02/27/2015 8:30 AM ORCHARD MANAGER Impressions 02/27/2015 4:26 PM ORCHARD MANAGER IMPRESSION: 1. Normal bone mineral density of the lumbar spine. 2. Normal bone mineral density of the right and left femoral necks. RECOMMENDATIONS: Typical preventive recommendations include total daily calcium intake (diet and supplement) of 1500 mg, daily vitamin D intake of 400-800 IU, and regular weight-bearing exercise, in the appropriate clinical setting. Narrative 02/27/2015 4:26 PM ORCHARD MANAGER BONE DENSITY (DEXA) 02/27/2015 8:30 AM HISTORY: Postmenopausal female with history of rheumatoid arthritis taking vitamin D. COMPARISON: 10/10/2009 and 12/06/2006. TECHNIQUE: The study was performed using DEXA in the AP lumbar spine and AP femur using a Hologic Discovery C. FINDINGS: Using DEXA, the results [...] lumbar spine and AP femur using a Hologic Discovery C. FINDINGS: Using DEXA, the results [...] MAMMO BILAT SCREEN FFDM (02/27/2015 8:25 AM ORCHARD MANAGER) Anatomical Region Laterality Modality BREASTS, Breast Left, Breast Right Bilateral Other 02/27/2015 8:25 AM ORCHARD MANAGER Impressions 02/27/2015 9:42 AM ORCHARD MANAGER IMPRESSION: BI-RADS CATEGORY: 1 - NEGATIVE. RECOMMENDED FOLLOW-UP: Annual Mammography. Exam results letter mailed to patient. Narrative 02/27/2015 9:42 AM ORCHARD MANAGER SCREENING MAMMOGRAM, BILATERAL, DIGITAL w/CAD - 02/27/2015 8:25 AM. BREAST SYMPTOMS: No current breast complaints. COMPARISON: [facility] 03/12/14, SI 01/21/10 BREAST DENSITY: Heterogeneously dense, limiting mammographic sensitivity. COMMENTS: No findings of suspicion for malignancy. Procedure Note Unknown, Doctor - 02/27/2015 SCREENING [...] W REFLEX MEASURED LDL (02/19/2015 9:42 AM ORCHARD MANAGER) CHOLESTEROL,TOTAL 261(H) 100 - 199 mg/dL 02/19/2015 1:43 PM ORCHARD MANAGER [facility] TRAL LABORATORY TRIGLYCERIDES 144 <150 mg/dL 02/19/2015 1:43 PM ORCHARD MANAGER [facility] TR[facility] LABORATORY HDL CHOLESTEROL 70 >40 mg/dL 02/19/2015 1:43 PM ORCHARD MANAGER [facility] TR[facility] LABORATORY NON-HDL CHOLESTEROL 191(H) <145 mg/dl 02/19/2015 1:43 PM ORCHARD MANAGER [facility] TR[facility] LABORATORY CHOL/HDL RATIO 3.73 <4.50 02/19/2015 1:43 PM ORCHARD MANAGER [facility] TR[facility] LAB[facility] LDL CHOLESTEROL 162(H) <=130 mg/dL 02/19/2015 1:43 PM ORCHARD MANAGER [facility] TR[facility] LABORATORY PATIENT STATUS FASTING 02/19/2015 1:43 PM ORCHARD MANAGER [facility] TR[facility] LAB[facility]AT[facility] Blood specimen (specimen) BLOOD SPECIMEN / Unknown Venipuncture / Unknown 02/19/2015 9:42 AM ORCHARD MANAGER 02/19/2015 9:42 AM ORCHARD MANAGER Fiorella Sims MD CHEMISTRY [facility] [address] [place] [address], * SCAN-COLONOSCOPY (12/12/2013 3:00 PM CDT) Narrative Transcriptions Nicole Sloan MD - 12/12/2013 2:13 PM CDT [facility] [address], [address], [place] [address] Patient Name: Jeanette Rios Gender: Female Exam Date: 12/12/2013 Visit Number: [id number] Age: 63 Years 3 Months Date of : 1950 Attending MD: Nicole Sloan MD Medical Record#: [id number] ----- Procedure: Colonoscopy Indications: Colorectal cancer screening [...] an immediate family member, you should contact [facility] primary provider to discuss whether [...] Electronically signed by: Nicole Sloan MD 12/12/2013 [facility] [phone] Nicole Sloan MD OTHER from Last 3 Months or Most Recently Relevant to Health Maintenance Advance Directives * Full Code (Latest Code Status on File) Date Activated Date Inactivated Comments 01/17/2020 8:14 AM 01/17/2020 1:18 PM Question Answer Comments Code Status Discussion: Not Discussed Care Teams Mortgage Protection Sales Relationship Specialty Start Date End Date Kathie Flores MD [address] [place] [address] PCP - General Family Practice 12/16/17
== END 2024-01-25 08:36 | disposition home or self-care (01) ==
LOC: NFLDREF 01-27 12:16
PROVIDERS: PCP Family Medicine; Referring Provider Family Medicine; Visit Provider Family Medicine
DX: R53.82 Chronic fatigue, unspecified (principal); I47.10 Supraventricular tachycardia, unspecified; R00.1 Bradycardia, unspecified; I49.3 Ventricular premature depolarization; R42 Dizziness and giddiness; G47.30 Sleep apnea, unspecified; E53.8 Deficiency of other specified B group vitamins
CPT/HCPCS: 82728; 83540; 83550

== ENCOUNTER 2024-02-01 08:02 | Emergency (ER) | payer MEDICARE, SELFPAY ==
[2024-02-01 08:14] VITALS: BP 144/91; PULSE 54; RESP 16; TEMP 36.3; O2SAT 96; BMI 27.1
--- NOTE | 2024-02-01 08:48 | ED.GENADULT ---
HPI - General Adult General Chief complaint: Unspecified Complaint, Adult Stated complaint: Medication Reaction - Metoprolol Time Seen by Provider: 02/01/24 08:09 History of Present Illness HPI narrative: This patient comes in reporting some fatigue and a few occasions of lightheadedness that she attributes to metoprolol. She was seen by me a few weeks ago because of paroxysms of supraventricular tachycardia. I did prescribed metoprolol succinate 25 mg daily. She began taking this about a week ago and states that she has not had any episodes of tachycardia but still has some PVCs on occasion. She is feeling tired and wonders if metoprolol is causing these symptoms. She does not describe any chest pain or other symptoms. Related Data Home Medications ?Medication ?Instructions ?Recorded ?Confirmed naproxen sodium 220 mg tablet 220 mg PO PRN 08/26/21 01/06/24 vitamin B complex 1 tab PO QDAY 11/20/21 01/06/24 Previous Rx's ?Medication ?Instructions ?Recorded cholecalciferol (vitamin D3) 50 50 mcg PO QDAY #100 caps 11/20/21 mcg (2,000 unit) capsule cyanocobalamin (vitamin B-12) 1,000 mcg PO QDAY #100 caps 11/20/21 1,000 mcg capsule fluticasone propionate 50 1 spray intranasal DAILY PRN 11/20/21 mcg/actuation nasal allergy symptoms #16 grams spray,suspension rosuvastatin 5 mg tablet 5 mg PO DAILY #90 tabs 12/07/23 metoprolol succinate 25 mg 25 mg PO DAILY #30 tabs 01/15/24 tablet,extended release 24 hr carvedilol 3.125 mg tablet (Coreg) 3.125 mg PO BID #60 tabs 02/01/24 Allergies Allergy/AdvReac Type Severity Reaction Status Date / Time nitrofurantoin (From Allergy Intermediate Dizziness Verified 01/06/24 09:32 Macrobid) tolmetin Allergy Intermediate Hives Verified 01/06/24 09:32 aspirin AdvReac Intermediate Abdominal Verified 01/06/24 09:32 Pain Review of Systems Status of ROS: Reports: 10 or more systems reviewed and unremarkable except as noted in History and below Narrative: Constitutional: No fevers, no weight gain or loss. Eyes: No discharge. No vision changes. HENT: No congestion, no sore throat, no ear pain. Cardiovascular: No chest pain, no palpitations. Respiratory: No shortness of breath, no wheezes, no cough. Gastrointestinal: No abdominal pain, no vomiting, no diarrhea. Genitourinary: No dysuria, no hematuria. Musculoskeletal: Normal range of motion. Skin: No rashes, no pruritis. Neurological: No dizziness, weakness, sensory change, speech change. Endo/Heme/Allergies: No bruising or bleeding. No polydipsia. Pysch: no suicidality, no anxiety, no insomnia. All other systems reviewed and are negative. [facility] Medical History (Updated 02/02/24 @ 07:20 by Kathie Flores MD) GERD (gastroesophageal reflux disease) ?K21.9 - Gastro-esophageal reflux disease without esophagitis (ICD-10) Adverse effect of nitrofurantoin ?T37.8X5A - Adverse effect of other specified systemic anti-infectives and antiparasitics, initial encounter (ICD-10) Burt's neuroma of right foot ?G57.61 - Lesion of plantar nerve, right lower limb (ICD-10) Vitamin D deficiency ?E55.9 - Vitamin D deficiency, unspecified (ICD-10) Ventricular premature beats (2019) ?I49.3 - Ventricular premature depolarization (ICD-10) Tinnitus ?H93.19 - Tinnitus, unspecified ear (ICD-10) 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 ?B00.89 - Other herpesviral infection (ICD-10) Mild sleep apnea (07/2018) ?G47.30 - Sleep apnea, unspecified (ICD-10) Low vitamin B12 level ?E53.8 - Deficiency of other specified B group vitamins (ICD-10) History of supraventricular tachycardia ?Z86.79 - Personal history of other diseases of the circulatory system (ICD-10) History of rheumatoid arthritis ?Z87.39 - Personal history of other diseases of the musculoskeletal system and connective tissue (ICD-10) History of fibromyalgia ?Z87.39 - Personal history of other diseases of the musculoskeletal system and connective tissue (ICD-10) History of depression ?Z86.59 - Personal history of other mental and behavioral disorders (ICD-10) Dyslipidemia ?E78.5 - Hyperlipidemia, unspecified (ICD-10) Surgical History H/O eye surgery (2019) ?Z98.890 - Other specified postprocedural states (ICD-10) Normal colonoscopy (2013) History of vaginal delivery History of right cataract extraction (06/2020) ?Z98.41 - Cataract extraction status, right eye (ICD-10) History of arthroscopy of right knee (1983) ?Z98.890 - Other specified postprocedural states (ICD-10) History of arthroscopy of right knee (1977) ?Z98.890 - Other specified postprocedural states (ICD-10) Family History (Updated 12/07/23 @ 13:56 by Kathie Flores MD) Brother Cardiac arrhythmia Lupus erythematosus H/O angioplasty, Onset Age: 45 Mother Alzheimers disease, Onset Age: 75 Stroke, Onset Age: 80 Father Basal cell carcinoma CHF (congestive heart failure), Onset Age: 86 Cardiac arrhythmia, Onset Age: 65 Maternal Grandmother Breast cancer, Onset Age: 40 Other Parkinson's disease Social History (Updated 12/07/23 @ 14:02 by Kathie Flores MD) Narrative: , retired from [employer], 2 kids non-smoker- quit age 32, 6 pack years social drinker- 5/week exercises 3-4 times per week- 50N silver sneakers, gardening, 8000 steps daily health care directive on file- health care directive completed on 06/05/19, reviewed and sent for scanning to medical record on 11/21/20 What is your current living situation?: I presently have a place to live In the past 12 months, utilities in danger of being shut off: no In the past 12 mos, have been you worried that your food would run out before you had money to buy more?: never true In the past 12 mos, the food you bought just didn't last and you didn't have money to buy more?: never true Smoking Status: Former smoker Do you use any of these nicotine containing products: None Second hand tobacco smoke exposure: No How often do you have a drink containing alcohol: 2-3 times a week How many standard drinks containing alcohol do you have on a typical day: 1 or 2 How often do you have six or more drinks on one occasion: Never AUDIT-C Alcohol total score: 3 Non-prescribed substance use: denies use How often does anyone, including family, friends and others, physically hurt you: never How often does anyone, including family, friends and others, insult or talk down to you: never How often does anyone, including family, friends and others, threaten you with harm: never How often does anyone, including family, friends and others, scream or curse at you: never service: No Exam Narrative: Exam Narrative: Constitutional: Well-developed, well-nourished, no acute distress. HEENT: Normocephalic, atraumatic. Neck: Normal range of motion. Nontender. Supple. Heart: Regular. No murmurs. Normal rate. Intact distal pulses. Lungs: Clear to auscultation. No chest discomfort. No wheezes, rhonchi, or rales. Abdomen: Normal bowel sounds. Nontender. No rebound tenderness. Genitalia: Deferred. Back: No midline tenderness. Normal range of motion. Extremities: Normal range of motion. No injury. Skin: Intact. No rash. Warm. No erythema or pallor. Neurologic: No altered sensation. No weakness. Alert and oriented. Psychiatric: No suicidality. No anxiety or depression. No insomnia. Nursing notes and vitals signs are reviewed. Const: Vital Signs, click to edit/add: Vital Signs - 24 hr 02/01/24 08:14 Temperature 97.3 F L Pulse Rate [Pulse Oximeter] 54 L Respiratory Rate 16 Blood Pressure [Ri ght Upper Arm] 144/91 H Pulse Oximetry 96 Oxygen Delivery Me thod Room Air Course Vital Signs Vital signs: Initial Vital Signs Temperature 97.3 F L 02/01/24 08:14 Temperature Source Temporal Artery Scan 02/01/24 08:14 Pulse Rate 54 L 02/01/24 08:14 Respiratory Rate 16 02/01/24 08:14 Blood Pressure 144/91 H 02/01/24 08:14 Blood Pressure Mean 108 H 02/01/24 08:14 Pulse Oximetry 96 02/01/24 08:14 Oxygen Delivery Method Room Air 02/01/24 08:14 Vital Signs Temperature 97.3 F L 02/01/24 08:14 Pulse Rate 54 L 02/01/24 08:14 Respiratory Rate 16 02/01/24 08:14 Blood Pressure 144/91 H 02/01/24 08:14 Pulse Oximetry 96 12/04/24 08:14 Oxygen Delivery Method Room Air 02/01/24 08:14 Temperature 97.3 F L 02/01/24 08:14 Pulse Rate 54 L 02/01/24 08:14 Respiratory Rate 16 02/01/24 08:14 Blood Pressure 144/91 H 02/01/24 08:14 Pulse Oximetry 96 02/01/24 08:14 Oxygen Delivery Method Room Air 02/01/24 08:14 Medical Decision Making MDM Narrative Medical decision making narrative: This patient began taking metoprolol all succinate 25 mg about a week ago to hopefully prevent paroxysm is a of supraventricular tachycardia. This seems to be an effective treatment however she is feeling fatigue and some occasions of lightheadedness. She states it is more the fatigue that troubles her. She arrives here with normal vital signs. Her heart rate is in the 50s but she is asymptomatic. I explained that some times a medicine involves a balance between benefit and adverse effects. I stated that this feeling of fatigue can sometimes dissipate after for 6 weeks of taking this medicine but I did also offer a switched to Coreg which may be worth a try to achieve the same benefit and have less adverse effects. I advised her to follow-up with her primary physician for ongoing management. Discharge Plan Discharge Clinical Impression: Fatigue Patient Disposition: Home, Self-Care Condition: Stable Additional Instructions: Try Coreg as prescribed instead of metoprolol and attend to benefits verses adverse effects. Follow-up with primary physician for ongoing management. Prescriptions: New carvedilol [Coreg] 3.125 mg tablet 3.125 mg PO BID Qty: 60 2RF Rx Instructions: must administer with a meal/food No Action vitamin B complex Tablet 1 tab PO QDAY fluticasone propionate 50 mcg/actuation spray,suspension 1 spray intranasal DAILY PRN (Reason: allergy symptoms) Qty: 16 5RF cholecalciferol (vitamin D3) 50 mcg (2,000 unit) capsule 50 mcg PO QDAY Qty: 100 4RF cyanocobalamin (vitamin B-12) 1,000 mcg capsule 1,000 mcg PO QDAY Qty: 100 4RF naproxen sodium 220 mg tablet 220 mg PO PRN rosuvastatin 5 mg tablet 5 mg PO DAILY Qty: 90 3RF metoprolol succinate 25 mg tablet extended release 24 hr 25 mg PO DAILY Qty: 30 2RF Follow Up/Referrals: Kathie Flores MD [Primary Care Provider] - Stand Alone Forms: [employer] Info Instructions
--- OUTSIDE RECORDS SUMMARY | 2024-02-01 08:57 | XMS_ITS | Clinical Summary ---
Author Organization [facility] Address [place], [place] [address] Care Team Providers Care Chucking Machine Set Up Operator Tool Name Role Phone Kathie Flores MD Primary Care Provider + Allergies Active Allergy Reactions Criticality Noted Date Comments Aspirin GI Upset 01/16/2020 abd pain Tolmetin Rash 06/14/2006 tolectin Medications Medication Sig Dispensed Refills Start Date End Date Status fluticasone (50 mcg per actuation) nasal solution (FLONASE)Indications :Environmental allergies Inhale 1 [place] into both nostrils once daily. 1 Bottle [...] Coronary atherosclerosis of unspecified type of vessel, [place] or graft 09/15/2009 12/29/2009 CVD (cardiovascular disease) 09/15/2009 12/29/2009 Adjustment disorder with mix ed anxiety and depressed mood 05/29/2008 02/05/2011 Adjustment disorder with depressed mood 02/05/2011 Encounters Date Type Department Care Team Description 01/18/2024 10:00 AM SECURITY SYSTEMS INSTALLER Office Visit [facility] [id number] [place] [address] Brionna Hyde PsyD, LP Individual Therapy 01/18/2024 Tele[place] [facility] [address] [place] [address] [phone] Sunday Story MD Medication Management (Prescribed metoprolol new prescription form [facility] & has ?s.) 01/18/2024 Travel 01/05/2024 Lab Requisition [facility] [phone] Juan R Mccarthy MD 12/21/2023 10:00 AM CDT Office Visit [facility] [id number] [place] [id number] Brionna Hyde PsyD, LP Individual Therapy; Trmt Plan 12/21/2023 Travel 12/07/2023 Telephone [facility] [address] [place] [address] Brionna Hyde PsyD, LP Phone Visit 11/17/2023 1:00 PM CDT Office Visit [facility] [address] [place] [address] Brionna Hyde PsyD, LP Individual Therapy 11/17/2023 [...] chest pain; no ASCVD Cancer-colon Brother 2 Yrui polyps Asthma Daughter [facility] Daughter [...] complication of stroke Paternal Grandfather (Age 78) [facility] Paternal Grandmother (Age 93) CH F Sister Alive Son [facility] Alive Social History Tobacco Use Types Packs/Day [...] Comments Blood Pressure 136/80 01/17/2020 10:25 AM SECURITY SYSTEMS INSTALLER Pulse 58 01/17/2020 10:25 AM SECURITY SYSTEMS INSTALLER Temperature 36.3 C (97.4 F) 01/17/2020 8:33 AM SECURITY SYSTEMS INSTALLER Respiratory Rate 18 01/17/2020 10:25 AM SECURITY SYSTEMS INSTALLER Oxygen Saturation 99% 01/17/2020 10:25 AM SECURITY SYSTEMS INSTALLER Inhaled Oxygen Concentration - - Weight 91.6 kg (202 lb) 01/16/2020 12:00 PM SECURITY SYSTEMS INSTALLER Height 182.9 cm (6') 01/16/2020 12:00 PM SECURITY SYSTEMS INSTALLER Body Mass Index 27.4 01/16/2020 12:00 PM SECURITY SYSTEMS INSTALLER Plan of Treatment Upcoming Encounters Date Type Department Care Team (Late st Contact Info) Description 02/15/2024 10:00 AM SECURITY SYSTEMS INSTALLER Office Visit [address] [address] Brionna Hyde PsyD, BO [address] [place] [phone] 03/21/2024 10:00 AM SECURITY SYSTEMS INSTALLER Office Visit [address] [address] Brionna Hyde PsyD, BO [address] [place] [phone] 04/18/2024 10:00 AM SECURITY SYSTEMS INSTALLER Office Visit [address] [address] Brionna Hyde PsyD, BO [address] [place] [address] Health Maintenance Due Date Last Done Comments [...] TRACKING EVENT Routine 01/05/2024 12 :40 PM SECURITY SYSTEMS INSTALLER PATH TISSUE EXAM Routine 01/05/2024 12:4 0 PM SECURITY SYSTEMS INSTALLER XR DXA BONE DENSITY 2 SITES AXIAL Routine 02/27/2015 8:30 AM SECURITY SYSTEMS INSTALLER Post-menopausal XR MAMMO BILAT SCREEN FFDM (IA) Routine 02/27/2015 8:25 AM SECURITY SYSTEMS INSTALLER Breast cancer screening LIPID PANEL W REFLEX MEASURED LDL Routine 02/19/2015 9:42 AM SECURITY SYSTEMS INSTALLER Hyperlipidemia, unspecified hyperlipidemia SCAN-COLONOSCOPY 12/12/2013 3:00 PM CDT from Last 3 Months or Most Recently Relevant to Health Maintenance Results * LAB TRACKING EVENT (01/05/2024 12:40 PM SECURITY SYSTEMS INSTALLER) Other (Other) Client Collect / Unknown 01/05/2024 12:40 PM SECURITY SYSTEMS INSTALLER 01/05/2024 10:12 PM SECURITY SYSTEMS INSTALLER Juan R Mccarthy MD LAB [facility] [address] [place] [address], * PATH TISSUE EXAM (01/05/2024 12:40 PM SECURITY SYSTEMS INSTALLER) Case Report Pathology Report Case: [id number] Authorizing Provider: Juan R Mccarthy MD Collected: 01/05/2024 1240 Ordering Location: [facility] Received: 01/06/2024 1006 Pathologist: Soha Salas MD Specimens: A) - Ascending Colon Polyp B) - Hepatic Flexure Polyp C) - Sigmoid Biopsy 01/10/2024 10:52 AM SECURITY SYSTEMS INSTALLER [facility]- ENTRAL LABORATORY Final Diagnosis A) COLON, ASCENDING, [...] active, and chronic colitis 01/10/2024 10:52 AM SECURITY SYSTEMS INSTALLER [facility] ENTRAL LABORATORY Clinical Information Screening colonoscopy. Localized mild inflammation in the sigmoid colon. 01/10/2024 10:52 AM SECURITY SYSTEMS INSTALLER [employer] ENTRAL LABORATORY Gross Description A) Received in [...] Garcia 01/06/2024 11:24 AM 01/10/2024 10:52 AM SECURITY SYSTEMS INSTALLER [facility] [employer] LABORATORY-C ENTRAL LABORATORY Microscopic Description The final diagnosis is based on microscopic examination of appropriate sections of all specimens. 01/10/2024 10:52 AM SECURITY SYSTEMS INSTALLER [facility] LABORATORY-C ENTRAL LABORATORY Additional Information Interpreted at [facility], Central Laboratory - [address] [place] [address] [address] 01/10/2024 10:52 AM SECURITY SYSTEMS INSTALLER [facility] Other (Ascending Colon Polyp) 01/05/2024 12:40 PM SECURITY SYSTEMS INSTALLER 01/06/2024 10:06 AM SECURITY SYSTEMS INSTALLER Specimen (specimen) (Hepatic Flexure Polyp) 01/05/2024 12:40 PM SECURITY SYSTEMS INSTALLER 01/06/2024 10:06 AM SECURITY SYSTEMS INSTALLER Specimen (specimen) (Sigmoid Biopsy) 01/05/2024 12:40 PM SECURITY SYSTEMS INSTALLER 01/06/2024 10:06 AM SECURITY SYSTEMS INSTALLER Juan R Mccarthy MD PATHOLOGY/CYTOLOGY [facility] [address] [place] [address], * XR DXA BONE DENSITY 2 SITES (02/27/2015 8:30 AM SECURITY SYSTEMS INSTALLER) Anatomical Region Laterality Modality Spine, HIPS, HIPL, HIPR Other 02/27/2015 8:30 AM SECURITY SYSTEMS INSTALLER Impressions 02/27/2015 4:26 PM SECURITY SYSTEMS INSTALLER IMPRESSION: 1. Normal bone mineral density of the lumbar spine. 2. Normal bone mineral density of the right and left femoral necks. RECOMMENDATIONS: Typical preventive recommendations include total daily calcium intake (diet and supplement) of 1500 mg, daily vitamin D intake of 400-800 IU, and regular weight-bearing exercise, in the appropriate clinical setting. Narrative 02/27/2015 4:26 PM SECURITY SYSTEMS INSTALLER BONE DENSITY (DEXA) 02/27/2015 8:30 AM HISTORY: [...] MAMMO BILAT SCREEN FFDM (02/27/2015 8:25 AM SECURITY SYSTEMS INSTALLER) Anatomical Region Laterality Modality BREASTS, Breast Left, Breast Right Bilateral Other 02/27/2015 8:25 AM SECURITY SYSTEMS INSTALLER Impressions 02/27/2015 9:42 AM SECURITY SYSTEMS INSTALLER IMPRESSION: BI-RADS CATEGORY: 1 - NEGATIVE. RECOMMENDED FOLLOW-UP: Annual Mammography. Exam results letter mailed to patient. Narrative 02/27/2015 9:42 AM SECURITY SYSTEMS INSTALLER SCREENING MAMMOGRAM, BILATERAL, DIGITAL w/CAD - 02/27/2015 [...] W REFLEX MEASURED LDL (02/19/2015 9:42 AM SECURITY SYSTEMS INSTALLER) CHOLESTEROL,TOTAL 261(H) 100 - 199 mg/dL 02/19/2015 1:43 PM SECURITY SYSTEMS INSTALLER [facility] TRAL LABORATORY TRIGLYCERIDES 144 <150 mg/dL 02/19/2015 1:43 PM SECURITY SYSTEMS INSTALLER [facility] TR[facility] LABORATORY HDL CHOLESTEROL 70 >40 mg/dL 02/19/2015 1:43 PM SECURITY SYSTEMS INSTALLER [facility] TRAL LABORATORY NON-HDL CHOLESTEROL 191(H) <145 mg/dl 02/19/2015 1:43 PM SECURITY SYSTEMS INSTALLER [facility] TRAL LABORATORY CHOL/HDL RATIO 3.73 <4.50 02/19/2015 1:43 PM SECURITY SYSTEMS INSTALLER [facility] TRAL LABORATORY LDL CHOLESTEROL 162(H) <=130 mg/dL 02/19/2015 1:43 PM SECURITY SYSTEMS INSTALLER [facility] PATIENT STATUS FASTING 02/19/2015 1:43 PM SECURITY SYSTEMS INSTALLER [facility] Blood specimen (specimen) BLOOD SPECIMEN / Unknown Venipuncture / Unknown 02/19/2015 9:42 AM SECURITY SYSTEMS INSTALLER 02/19/2015 9:42 AM SECURITY SYSTEMS INSTALLER Fiorella Sims MD [facility]STRY [facility] [address] [place] [address], * SCAN-COLONOSCOPY (12/12/2013 3:00 PM CDT) Narrative Transcriptions Nicole Sloan MD - 12/12/2013 2:13 PM CDT [facility] [address], [address], [place] [address] Patient Name: Jeanette Rios Gender: Female Exam Date: 12/12/2013 Visit Number: [id number] Age: 63 Years 3 Months Date of : 1950 Attending MD: Nicole Sloan MD Medical Record#: [id number] ----- Procedure: Colonoscopy Indications: Colorectal cancer screening [...] an immediate family member, you should contact [facility] primary provider to discuss whether [...] Electronically signed by: Nicole Sloan MD 12/12/2013 [facility] [phone] Nicole Slaon MD OTHER from Last 3 Months or Most Recently Relevant to Health Maintenance Advance Directives * Full Code (Latest Code Status on File) Date Activated Date Inactivated Comments 01/17/2020 8:14 AM 01/17/2020 1:18 PM Question Answer Comments Code Status Discussion: Not Discussed Care Teams Chucking Machine Set Up Operator Tool Relationship Specialty Start Date End Date Kathie Flores MD [address] [place] [address] PCP - General Family Practice 12/16/17
== END 2024-02-01 09:00 | disposition home or self-care (01) ==
LOC: ED 08:55
PROVIDERS: Emergency Provider Emergency Medicine Emergency Medical Services; PCP Family Medicine
DX: R53.83 Other fatigue (principal)
CPT/HCPCS: 99283; 99284

== ENCOUNTER 2024-02-02 11:13 | Outpatient (CLI) | payer MEDICARE, SELFPAY ==
--- OUTSIDE RECORDS SUMMARY | 2024-02-02 11:18 | XMS_ITS | Clinical Summary ---
Author Organization [facility] Address [place], [place] [address] Care Team Providers Care Computer Systems Auditor Name Role Phone Kathie Flores MD Primary Care Provider + Allergies Active Allergy Reactions Criticality Noted Date Comments Aspirin GI Upset 01/16/2020 abd pain Tolmetin Rash 06/14/2006 tolectin Medications Medication Sig Dispensed Refills Start Date End Date Status fluticasone (50 mcg per actuation) nasal solution (FLONASE)Indications :Environmental allergies Inhale 1 [place] into both nostrils once daily. 1 Bottle [...] Department Care Team Description 01/18/2024 10:00 AM TOBACCO PACKING MACHINE OPERATOR Office Visit [facility] [id number] [place] [address] Brionna Hyde PsyD, LP Individual Therapy 01/18/2024 Telephone [facility] [address] [place] [address] [phone] Sunday Story MD Medication Management (Prescribed metoprolol new prescription form [facility] & has ?s.) 01/18/2024 Travel 01/05/2024 Lab Requisition [facility] [phone] Juan R Mccarthy MD 12/21/2023 10:00 AM CDT Office Visit [facility] [id number] [place] [address] Brionna Hyde PsyD, LP Individual Therapy; Trmt Plan 12/21/2023 Travel 12/07/2023 Telephone [facility] [id number] [place] [address] Brionna Hyde PsyD, LP Phone Visit 11/17/2023 1:00 PM CDT Office Visit [facility] [address] [place] [address] Brionna Hyde PsyD, LP Individual Therapy 11/17/2023 [...] Comments Brother 1 Andrew Alive Brother 2 Uyri Alive Daughter Pj Alive Father Alive Maternal Grandfather (Age 62) clarence Maternal Grandmother (Age 70's) dementia Mother complication of stroke Paternal Grandfather (Age 78) [facility] Paternal Grandmother (Age 93) [place] F Sister Alive Son [facility] Alive Social History Tobacco Use [...] Comments Blood Pressure 136/80 01/17/2020 10:25 AM TOBACCO PACKING MACHINE OPERATOR Pulse 58 01/17/2020 10:25 AM TOBACCO PACKING MACHINE OPERATOR Temperature 36.3 C (97.4 F) 01/17/2020 8:33 AM TOBACCO PACKING MACHINE OPERATOR Respiratory Rate 18 01/17/2020 10:25 AM TOBACCO PACKING MACHINE OPERATOR Oxygen Saturation 99% 01/17/2020 10:25 AM TOBACCO PACKING MACHINE OPERATOR Inhaled Oxygen Concentration - - Weight 91.6 kg (202 lb) 01/16/2020 12:00 PM TOBACCO PACKING MACHINE OPERATOR Height 182.9 cm (6') 01/16/2020 12:00 PM TOBACCO PACKING MACHINE OPERATOR Body Mass Index 27.4 01/16/2020 12:00 PM TOBACCO PACKING MACHINE OPERATOR Plan of Treatment Upcoming Encounters Date Type Department Care Team (Late st Contact Info) Description 03/21/2024 10:00 AM TOBACCO PACKING MACHINE OPERATOR Office Visit [address] [address] Brionna Hyde PsyD, BO [address] [place] [phone] 04/18/2024 10:00 AM TOBACCO PACKING MACHINE OPERATOR Office Visit [address] [address] Brionna Hyde PsyD, BO [address] [place] [phone] Health Maintenance Due Date Last Done Comments [...] TRACKING EVENT Routine 01/05/2024 12 :40 PM TOBACCO PACKING MACHINE OPERATOR PATH TISSUE EXAM Routine 01/05/2024 12:4 0 PM TOBACCO PACKING MACHINE OPERATOR XR DXA BONE DENSITY 2 SITES AXIAL Routine 02/27/2015 8:30 AM TOBACCO PACKING MACHINE OPERATOR Post-menopausal XR MAMMO BILAT SCREEN FFDM (IA) Routine 02/27/2015 8:25 AM TOBACCO PACKING MACHINE OPERATOR Breast cancer screening LIPID PANEL W REFLEX MEASURED LDL Routine 02/19/2015 9:42 AM TOBACCO PACKING MACHINE OPERATOR Hyperlipidemia, unspecified hyperlipidemia SCAN-COLONOSCOPY 12/12/2013 3:00 PM CDT from Last 3 Months or Most Recently Relevant to Health Maintenance Results * LAB TRACKING EVENT (01/05/2024 12:40 PM TOBACCO PACKING MACHINE OPERATOR) Other (Other) Client Collect / Unknown 01/05/2024 12:40 PM TOBACCO PACKING MACHINE OPERATOR 01/05/2024 10:12 PM TOBACCO PACKING MACHINE OPERATOR Juan R Mccarthy MD LAB BILL ONLY [facility] [address] [place] [address], * PATH TISSUE EXAM (01/05/2024 12:40 PM TOBACCO PACKING MACHINE OPERATOR) Case Report Pathology Report Case: [id number] Authorizing Provider: Juan R Mccarthy MD Collected: 01/05/2024 1240 Ordering Location: [facility] Received: 01/06/2024 1006 Pathologist: Soha Salas MD Specimens: A) - Ascending Colon Polyp B) - Hepatic Flexure Polyp C) - Sigmoid Biopsy 01/10/2024 10:52 AM TOBACCO PACKING MACHINE OPERATOR [facility] Final Diagnosis A) COLON, ASCENDING, POLYPECTOMIES: [...] active, and chronic colitis 01/10/2024 10:52 AM TOBACCO PACKING MACHINE OPERATOR [facility] Clinical Information Screening colonoscopy. Localized mild inflammation in the sigmoid colon. 01/10/2024 10:52 AM TOBACCO PACKING MACHINE OPERATOR [facility] Gross Description A) Received in [...] Garcia 01/06/2024 11:24 AM 01/10/2024 10:52 AM TOBACCO PACKING MACHINE OPERATOR [facility] Microscopic Description The final diagnosis is based on microscopic examination of appropriate sections of all specimens. 01/10/2024 10:52 AM TOBACCO PACKING MACHINE OPERATOR [facility] Additional Information Interpreted at [facility] - [address], [place] [address] 01/10/2024 10:52 AM TOBACCO PACKING MACHINE OPERATOR [facility] Other (Ascending Colon Polyp) 01/05/2024 12:40 PM TOBACCO PACKING MACHINE OPERATOR 01/06/2024 10:06 AM TOBACCO PACKING MACHINE OPERATOR Specimen (specimen) (Hepatic Flexure Polyp) 01/05/2024 12:40 PM TOBACCO PACKING MACHINE OPERATOR 01/06/2024 10:06 AM TOBACCO PACKING MACHINE OPERATOR Specimen (specimen) (Sigmoid Biopsy) 01/05/2024 12:40 PM TOBACCO PACKING MACHINE OPERATOR 01/06/2024 10:06 AM TOBACCO PACKING MACHINE OPERATOR Juan R Mccarthy MD PATHOLOGY/CYTOLOGY [facility] [address] [place] [address], * XR DXA BONE DENSITY 2 SITES (02/27/2015 8:30 AM TOBACCO PACKING MACHINE OPERATOR) Anatomical Region Laterality Modality Spine, HIPS, HIPL, HIPR Other 02/27/2015 8:30 AM TOBACCO PACKING MACHINE OPERATOR Impressions 02/27/2015 4:26 PM TOBACCO PACKING MACHINE OPERATOR IMPRESSION: 1. Normal bone mineral density of the lumbar spine. 2. Normal bone mineral density of the right and left femoral necks. RECOMMENDATIONS: Typical preventive recommendations include total daily calcium intake (diet and supplement) of 1500 mg, daily vitamin D intake of 400-800 IU, and regular weight-bearing exercise, in the appropriate clinical setting. Narrative 02/27/2015 4:26 PM TOBACCO PACKING MACHINE OPERATOR BONE DENSITY (DEXA) 02/27/2015 8:30 AM HISTORY: [...] MAMMO BILAT SCREEN FFDM (02/27/2015 8:25 AM TOBACCO PACKING MACHINE OPERATOR) Anatomical Region Laterality Modality BREASTS, Breast Left, Breast Right Bilateral Other 02/27/2015 8:25 AM TOBACCO PACKING MACHINE OPERATOR Impressions 02/27/2015 9:42 AM TOBACCO PACKING MACHINE OPERATOR IMPRESSION: BI-RADS CATEGORY: 1 - NEGATIVE. RECOMMENDED FOLLOW-UP: Annual Mammography. Exam results letter mailed to patient. Narrative 02/27/2015 9:42 AM TOBACCO PACKING MACHINE OPERATOR SCREENING MAMMOGRAM, BILATERAL, DIGITAL w/CAD - 02/27/2015 [...] W REFLEX MEASURED LDL (02/19/2015 9:42 AM TOBACCO PACKING MACHINE OPERATOR) CHOLESTEROL,TOTAL 261(H) 100 - 199 mg/dL 02/19/2015 1:43 PM TOBACCO PACKING MACHINE OPERATOR [facility] TRIGLYCERIDES 144 <150 mg/dL 02/19/2015 1:43 PM TOBACCO PACKING MACHINE OPERATOR [facility] HDL CHOLESTEROL 70 >40 mg/dL 02/19/2015 1:43 PM TOBACCO PACKING MACHINE OPERATOR [facility] NON-HDL CHOLESTEROL 191(H) <145 mg/dl 02/19/2015 1:43 PM TOBACCO PACKING MACHINE OPERATOR [facility] CHOL/HDL RATIO 3.73 <4.50 02/19/2015 1:43 PM TOBACCO PACKING MACHINE OPERATOR [facility] LDL CHOLESTEROL 162(H) <=130 mg/dL 02/19/2015 1:43 PM TOBACCO PACKING MACHINE OPERATOR [facility] PATIENT STATUS FASTING 02/19/2015 1:43 PM TOBACCO PACKING MACHINE OPERATOR [facility] Blood specimen (specimen) BLOOD SPECIMEN / Unknown Venipuncture / Unknown 02/19/2015 9:42 AM TOBACCO PACKING MACHINE OPERATOR 02/19/2015 9:42 AM TOBACCO PACKING MACHINE OPERATOR Fiorella Sims MD CHEMISTRY [facility] [address] [place] [address], * SCAN-COLONOSCOPY (12/12/2013 3:00 PM CDT) Narrative Transcriptions Nicole Sloan MD - 12/12/2013 2:13 PM CDT [facility] [address], [address], [place] [address] Patient Name: Jeanette Rios Gender: Female Exam Date: 12/12/2013 Visit Number: [id number] Age: 63 Years 3 Months Date of : 1950 Attending MD: Nicole Sloan MD Medical Record#: [id number] ----- Procedure: Colonoscopy Indications: Colorectal cancer screening [...] an immediate family member, you should contact [facility] primary provider to discuss whether your next [...] contact our office so that [facility] can [facility]. Electronically signed by: Nicole Sloan MD 12/12/2013 [facility] [phone] Nicole Sloan MD OTHER from Last 3 Months or Most Recently Relevant to Health Maintenance Advance Directives * Full Code (Latest Code Status on File) Date Activated Date Inactivated Comments 01/17/2020 8:14 AM 01/17/2020 1:18 PM Question Answer Comments Code Status Discussion: Not Discussed Care Teams Computer Systems Auditor Relationship Specialty Start Date End Date Kathie Flores MD [address] [place] [address] PCP - General Family Practice 12/16/17
== END 2024-02-02 11:14 | disposition home or self-care (01) ==
PROVIDERS: PCP Family Medicine; Visit Provider Family Medicine
DX: R53.83 Other fatigue (principal); E55.9 Vitamin D deficiency, unspecified; E53.8 Deficiency of other specified B group vitamins; I47.10 Supraventricular tachycardia, unspecified; I49.3 Ventricular premature depolarization
CPT/HCPCS: 80053; 84443

== ENCOUNTER 2024-04-09 13:25 | Outpatient (CLI) | payer MEDICARE, SELFPAY ==
--- NOTE | 2024-04-17 12:36 | W.PM.SLEEP ---
Sleep Study Details Details Interpreting Provider: Joelle Date of Sleep Study: 04/09/24 Sleep Study Details: STUDY TYPE:? Home unattended ? BMI:? 28.7 ORDERING PROVIDER:Sherif Mariscal INDICATION:? Concern about sleep apnea ? SLEEP SUMMARY:? 571 minutes monitored RESPIRATORY SUMMARY:? AHI 2.1 per CMS guideline, 4.4 per rule 1A guideline Low oxygen 82 0.2% of study oxygen less than 90% Snoring 89.5% PERIODIC LIMB MOVEMENTS OF SLEEP:? Not recorded CARDIAC:? Range 47-101, mean 56.3 beats per minute IMPRESSION:? This study does not suggest the medically significant obstructive sleep apnea. If sleep disorder is strongly suspected would recommend an in-lab study with a sedative hypnotic agent RECOMMENDATION: See above impression
== END 2024-04-09 13:26 | disposition home or self-care (01) ==
PROVIDERS: PCP Family Medicine; Visit Provider Internal Medicine Cardiovascular Disease
DX: G47.30 Sleep apnea, unspecified (principal); G47.10 Hypersomnia, unspecified
CPT/HCPCS: 95806

== ENCOUNTER 2024-10-10 11:17 | Outpatient (CLI) | payer MEDICARE, SELFPAY ==
--- NOTE | 2024-10-10 11:30 | CRLHL7_ITS ---
For Patients: As a result of the Century Cures Act, medical imaging exams and procedure reports are released immediately into your electronic medical record. You may view this report before your referring provider. If you have questions, please contact your health care provider. INDICATION: BILATERAL SCREENING MAMMOGRAM, ASYMPTOMATIC 74 Y/O FEMALE COMPARISON: Baseline TECHNIQUE: Digital mammogram in CC and MLO projections including computer-aided detection (CAD) and tomosynthesis. BREAST COMPOSITION: There are scattered areas of fibroglandular density. FINDINGS: No suspicious findings. ASSESSMENT: BI-RADS 1 Negative RECOMMENDATION: Annual screening mammogram. A lay language report of this examination will be provided to the patient. Dictated by: Rahat Stein MD @ 10/10/2024 12:12:58 (Electronically Signed)
== END 2024-10-10 11:18 | disposition home or self-care (01) ==
LOC: MAMMO 11:18
PROVIDERS: PCP Family Medicine; Visit Provider Family Medicine
DX: Z12.31 Encounter for screening mammogram for malignant neoplasm of breast (principal)
CPT/HCPCS: 77063; 77067

== ENCOUNTER 2024-12-11 08:35 | Outpatient (CLI) | payer MEDICARE, SELFPAY | END 2024-12-11 08:36 | disposition home or self-care (01) | LOC: NFLDREF 12-27 03:53 | PROVIDERS: PCP Family Medicine; Referring Provider Family Medicine; Visit Provider Family Medicine | DX: R53.82 Chronic fatigue, unspecified (principal); E55.9 Vitamin D deficiency, unspecified; E78.5 Hyperlipidemia, unspecified; E53.8 Deficiency of other specified B group vitamins | CPT/HCPCS: 80053; 80061; 82306; 82607 ==